=== PATIENT | male | born 1945 | race Caucasian/White ===

== ENCOUNTER → 2020-11-24 08:21 | Outpatient (BNVA) | payer MEDICARE, SELFPAY | PROVIDERS: PCP Internal Medicine; Referring Provider Internal Medicine; Visit Provider Internal Medicine | DX: I71.2 Thoracic aortic aneurysm, without rupture (principal); I25.10 Atherosclerotic heart disease of native coronary artery without angina pectoris; I10 Essential (primary) hypertension; I44.0 Atrioventricular block, first degree | CPT/HCPCS: 93005; 99212 ==

== ENCOUNTER 2021-02-24 10:30 | Outpatient (REF) | payer MEDICARE, SELFPAY ==
[2021-02-24 14:04] LABS: MANUAL DIFF FLAG NO
[2021-02-24 14:11] LABS: Basophils Absolute Auto 0.1 X10*3/uL (0.0-0.2); Basophils Percent Auto 0.6 % (0-2); Eosinophils Absolute Auto 1.1 X10*3/uL (0.0-0.4); Hematocrit 47.8 % (42-52); Hemoglobin 16.6 g/dl (14.0-18.0); Imm Gran Abs Auto 0.02 X10*3/uL (0.00-0.03); Imm Gran Pct Auto 0.2 % (0.0-0.4); Lymphocytes Absolute Auto 3.3 X10*3/uL (1.2-4.9); Lymphocytes Percent Auto 35.1 % (20-40); Mean Corpuscular HGB Conc 34.7 g/dl (31.0-36.0); Mean Corpuscular Hemoglobin 33.3 pg (27.0-33.0); Mean Platelet Volume 9.5 fL (9.4-12.4); Monocytes Absolute Auto 0.7 X10*3/uL (0.1-1.2); Neutrophils Absolute Auto 4.2 X10*3/uL (2.0-8.3); Neutrophils Percent Auto 45.1 % (45-73); Platelet Count 240 X10*3/uL (160-400); Red Blood Count 4.98 X10*6/uL (4.60-5.80); Red Cell Distribution Width 12.6 % (11.0-16.0); White Blood Count 9.4 X10*3/uL (4.8-10.8)
[2021-02-24 14:19] LABS: Glucose Urine UA NEG (NEG); Leukocyte Esterase Urine NEG (NEG); Nitrite Urine NEG (NEG); Urine Blood NEG (NEG); Urine Ketones NEG (NEG); Urine Protein NEG (NEG-TRACE)
[2021-02-24 14:25] LABS: Alanine Aminotransferase 15 U/L (0-40); Albumin Level 4.3 g/dL (3.5-5.0); Alkaline Phosphatase 69 U/L (39-117); Anion Gap 14 (12-20); Aspartate Amino Transferase 21 U/L (5-37); Bilirubin Total 0.7 mg/dL (0.0-1.0); Blood Urea Nitrogen 14 mg/dL (9-16); Calcium 9.3 mg/dL (8.4-10.2); Carbon Dioxide 25 mmol/L (22-29); Chloride 106 mmol/L (96-108); Cholesterol 136 mg/dL; Estimated Glomerular Filt Rate > 60; Glucose Fasting 94 mg/dL (60-99); HDL Cholesterol 48 mg/dL; LDL Cholesterol Calculated 69 mg/dl; Sodium 141 mmol/L (135-145); Total Protein 7.4 g/dL (6.5-8.0); Triglycerides 96 mg/dL; Uric Acid 7.4 mg/dL (3.4-7.0)
[2021-02-24 14:31] LABS: Appearance Urine CLEAR; Color Urine YELLOW
[2021-02-24 14:52] LABS: Erythrocyte Sedimentation Rate 6 MM/HR (0-15)
== END 2021-02-24 10:31 | disposition home or self-care (01) ==
LOC: HO.HMGCLDS 10:30
PROVIDERS: PCP Internal Medicine; Visit Provider Internal Medicine
DX: E78.00 Pure hypercholesterolemia, unspecified (principal); I10 Essential (primary) hypertension; M11.20 Other chondrocalcinosis, unspecified site; K21.9 Gastro-esophageal reflux disease without esophagitis; M17.0 Bilateral primary osteoarthritis of knee; E66.9 Obesity, unspecified
CPT/HCPCS: 36415; 80053; 80061; 81003; 84443; 84550; 85025; 85652

== ENCOUNTER 2021-03-11 09:33 | Emergency (ER) | payer MEDICARE, SELFPAY ==
--- NOTE | 2021-03-11 | ECG_ITS ---
Test Reason : IRREGULAR HEART RATE Blood Pressure : / mmHG Vent. Rate : 069 BPM Atrial Rate : 069 BPM P-R Int : 198 ms QRS Dur : 090 ms QT Int : 418 ms P-R-T Axes : 012 -15 018 degrees QTc Int : 447 ms Sinus rhythm with frequent Premature ventricular complexes in a pattern of bigeminy Inferior infarct (cited on or before 12-NOV-2010) Anteroseptal infarct (cited on or before 12-NOV-2010) Abnormal ECG When compared with ECG of 17-MAR-2015 10:24, Premature ventricular complexes are now Present Questionable change in initial forces of Anteroseptal leads Referred By: Generic ED Physician Electronically Signed By:JUNIOR MANZO
--- NOTE | ~2021-03-11 | CT_ITS ---
EXAMINATION: CT ANGIOGRAM CHEST CLINICAL INFORMATION: Dyspnea. History of aneurysm. COMPARISON: Previous CTA of the chest February 2020 TECHNIQUE: Multiple axial images were obtained through the chest after the administration of 70 mL of Omnipaque 350 intravenous contrast. Extensive vascular post-processing including two-dimensional and three-dimensional reformatted images were created and reviewed on an independent workstation. This CT examination was performed using dose optimization techniques as appropriate, variously including the following: *Automated exposure control *Adjustment of mA and/or kV according to patient size (this includes techniques or standardized protocols for targeted exams where dose is matched to indication/reason for exam; i.e. extremities or head) *Use of iterative reconstruction technique DLP: 357 mGy-cm FINDINGS: There is an aneurysm of the ascending thoracic aorta. This measures 4.8 cm in AP and transverse dimension and does not appear appreciably changed. The aortic arch is normal in caliber measuring 2.7 cm. The descending thoracic aorta is normal in caliber measuring 3 cm. The descending thoracic aorta is tortuous. The great vessels are patent. The great vessels appear tortuous. No dissection is seen. The heart is enlarged. There are post-CABG changes. There is no pericardial effusion. No pulmonary embolism is seen. There are small mediastinal lymph nodes. No enlarged hilar or mediastinal lymph nodes are seen. There is chronic scarring or subsegmental atelectasis in the right lower lobe. The lungs are otherwise clear. There is a right pleural thickening and pleural calcification that is unchanged. There is no pleural effusion. No chest wall mass or enlarged axillary lymph nodes are seen. There are several cysts in the pancreas. These measure 1.3 cm in the body and tail of the pancreas. There is a 3 cm left renal cyst. There are degenerative changes of the spine. CT/CT angio chest aorta IMPRESSION: Stable aneurysm of the ascending thoracic aorta measuring 4.8 cm. No evidence of dissection. No pulmonary embolism. Enlarged heart and post-CABG changes. Chronic pleural thickening and calcified pleural calcification at the right lung base and adjacent right lower lobe atelectasis. Stable cysts in the body and tail of the pancreas.
[2021-03-11 09:47] VITALS: BP 128/61; PULSE 94; RESP 18; TEMP 36.4; O2SAT 99; BMI 32.5
--- NOTE | 2021-03-11 09:56 | ED.ARRPALP ---
HPI - Arrhythmia/Palpitations General Chief Complaint: Arrhythmia/Palpitations Stated Complaint: irregular heartbeat Time Seen by Provider: 03/11/21 09:37 Source: patient Mode of arrival: ambulatory Limitations: no limitations History of Present Illness MD complaint: skipped beats and irregular heart beat Onset (ago): unknown Duration: intermittent Severity: mild Context: occurred during rest Associated symptoms: denies other symptoms Related Data Home Medications Medication Instructions Recorded Confirmed aspirin 81 mg tablet,delayed 81 mg PO DAILY 11/24/20 03/11/21 release multivitamin 1 tab PO DAILY 11/24/20 03/11/21 Previous Rx's Medication Instructions Recorded diclofenac sodium 3 % topical gel 1 appl TOPICAL BID PRN 30 Days 12/07/20 #100 g amlodipine 10 mg tablet 10 mg PO DAILY 90 Days #90 tab 12/31/20 atenolol 50 mg tablet 50 mg PO DAILY 90 Days #90 tab 12/31/20 indomethacin 25 mg capsule 25 mg PO TID #270 cap 12/31/20 lisinopril 30 mg tablet 30 mg PO DAILY 90 Days #90 tab 12/31/20 simvastatin 80 mg tablet 80 mg PO BEDTIME 90 Days #90 tab 12/31/20 albuterol sulfate 90 mcg/actuation 2 puff INHALATION Q6H PRN #8.5 g 03/11/21 aerosol inhaler Allergies Allergy/AdvReac Type Severity Reaction Status Date / Time morphine [MORPHINE] Allergy Unknown UNKNOWN Verified 03/11/21 08:43 Review of Systems Review of Systems: Constitutional : No Weight loss, No Fever, No Chills, No Fatigue, No Malaise ENT/Mouth : No sore throat, No Rhinorrhea Eyes: No Eye Pain, No Swelling, No Redness Cardiovascular : No Chest Pain, No SOB, No Dyspnea on Exertion, No Orthopnea, No Edema, No Palpitations, intermittent wheezing at night Respiratory : No Cough, No Sputum, No Wheezing Gastrointestinal : No Nausea, No Vomiting, No Diarrhea, No Constipation, No abdominal Pain, No Hematochezia, No Melena Genitourinary : No Dysuria, No Urinary Frequency, No Hematuria, Musculoskeletal : No joint pain, No Myalgias, No Joint Swelling Skin : No Skin Lesions, No rash Neuro : No Weakness, No Numbness, No Dizziness, No Headache Psych : No Anxiety/Panic, No Depression Heme/Lymph: No Bruising, No Bleeding,No Lymphadenopathy Endocrine : No Polyuria, No Polydipsia All other systems reviewed and are negative [facility] Past Medical History Attestation statement: The following information was validated with the patient. Medical History Ascending aortic aneurysm Atherosclerotic cardiovascular disease Benign essential hypertension Chronic obstructive pulmonary disease (COPD) Essential hypertension GERD without esophagitis Lumbar degenerative disc disease Obesity (BMI 30-39.9) Primary osteoarthritis of knees, bilateral Pseudogout Pure hypercholesterolemia Surgical History History of coronary artery bypass graft x 3 (~1998) History of laminectomy (~2007) S/P arthroscopy of knee (~2014) Family History Family History (Updated 03/11/21 @ 08:40 by Randi Harris Melissa) Father Myocardial infarction Mother No problems noted. Social History Social History Household Members: Spouse Housing: [facility] Alcohol intake: current Alcohol intake frequency: holidays/special occasions only Patient Tobacco Use Status: Former Tobacco user Quit Date: > 20 years ago e-Cigarette/Vaping Use: Never Used Second Hand Smoke Exposure: No service: Yes ([employer]) Current occupational status: retired Physical Exam Vital Signs: Vital Signs: Last Vital Signs Temp 97.6 F 03/11/21 09:47 Pulse 61 03/11/21 11:56 Resp 20 03/11/21 11:56 BP 122/62 03/11/21 11:56 Pulse Ox 95 03/11/21 11:56 Body Mass Index 32.5 Appearance: Alert. Oriented X3. No acute distress. Eyes: Pupils equal, round and reactive to light. ENT: Pharynx normal. Neck: Normal inspection. Neck supple. CVS: Normal heart rate and rhythm. Pulses normal. HR on tele 72 perfusing at 52 Respiratory: No respiratory distress. Breath sounds normal. Abdomen: Soft and non-tender. Skin: Skin warm and dry. Normal skin color. Normal skin turgor. Extremities: No lower extremity edema. No calf ttp Neuro: Oriented X 3. No motor deficit. No sensory deficit. Course Course Course Narrative: asymptomatic in and out of bigeminy but stable BP and he is perfusing in the 50s, stable aneurysm will ambulate and if he remains stable and PVCs not increased can be DC home if increase with exercise will ECHO and notify cardiology ECHO ordered per Cardiology decrease propanolol if BP stable BP in 120s does not want to wait for ECHO - will decrease atenolol to 25mg daily MDM - Arrhythmia/Palpitations MDM Narrative Medical decision making narrative: 75 yo male with hx of CAD s/p CABG 20 years ago, known thoracic aneurysm actually due for imaging this [place], HLD, HTN went to PCP for routine check up and HR was reportedly in the 30s, he arrived to the ED in [facility] at a rate of 72 and he was perfusing at 52 - normal BP he is on atenolol 50mg daily, he denies any other symptoms related to bradycardia. He has had worsening wheezing at night and is worried about his aneurysm causing this symptom - at this time will need labs, CTA to evaluate size of his aneurysm, anticipate cardiology consult while here. Lab Data Result diagrams: 03/11/21 10:06 03/11/21 10:06 Labs: Lab Results 03/11/21 03/11/21 03/11/21 Range/Units 10:06 10:06 10:06 WBC 8.6 (4.8-10.8) X10*3/uL RBC 5.08 (4.60-5.80) X10*6/uL Hgb 17.2 (14.0-18.0) g/dl Hct 48.5 (42-52) % MCV 95.5 (80-98) fL MCH 33.9 H (27.0-33.0) pg MCHC 35.5 (31.0-36.0) g/dl RDW 12.3 (11.0-16.0) % Plt Count 195 (160-400) X10*3/uL MPV 8.9 L (9.4-12.4) fL Immature Gran % (Auto) 0.2 (0.0-0.4) % Neut % (Auto) 44.8 L (45-73) % Lymph % (Auto) 31.6 (20-40) % Rush % (Auto) 9.3 (2-11) % Eos % (Auto) 13.5 H (0-4) % Baso % (Auto) 0.6 (0-2) % Lymph # (Auto) 2.7 (1.2-4.9) X10*3/uL Rush # (Auto) 0.8 (0.1-1.2) X10*3/uL Eos # (Auto) 1.2 H (0.0-0.4) X10*3/uL Baso # (Auto) 0.1 (0.0-0.2) X10*3/uL Abs Immat Gran (auto) 0.02 (0.00-0.03) X10*3/uL Absolute Neuts (auto) 3.9 (2.0-8.3) X10*3/uL Absolute Nucleated RBC 0.000 (0.0-0.012) X10*3/uL Nucleated RBC % (auto) 0.0 (0.0-0.2) /100WBC PT 11.4 (9.9-13.0) SEC INR 1.0 (0.9-1.1) APTT 34.4 (24.1-38.0) SEC Sodium 138 (135-145) mmol/L Potassium 4.2 (3.3-5.1) mmol/L Chloride 105 (96-108) mmol/L Carbon Dioxide 26 (22-29) mmol/L Anion Gap 11 L (12-20) BUN 17 H (9-16) mg/dL Creatinine 1.46 H (0.5-1.4) mg/dL Estim Creat Clear Calc 51.6 Estimated GFR 47 Random Glucose 110 (60-115) mg/dL Calcium 9.2 (8.4-10.2) mg/dL Magnesium 2.1 (1.6-2.6) mg/dL Total Bilirubin 0.9 (0.0-1.0) mg/dL Direct Bilirubin 0.3 (0.0-0.5) mg/dL AST 21 (5-37) U/L ALT 15 (0-40) U/L Alkaline Phosphatase 72 (39-117) U/L Troponin I High Sens (<3.5-35.0) ng/L B-Natriuretic Peptide (<100) pg/mL Total Protein 7.5 (6.5-8.0) g/dL Albumin 4.3 (3.5-5.0) g/dL TSH 1.52 (0.32-4.0) uIU/mL COVID-19 (MARILIN) (Negative) COVID-19 Clin Com 03/11/21 03/11/21 Range/Units 10:06 10:06 WBC (4.8-10.8) X10*3/uL RBC (4.60-5.80) X10*6/uL Hgb (14.0-18.0) g/dl Hct (42-52) % MCV (80-98) fL MCH (27.0-33.0) pg MCHC (31.0-36.0) g/dl RDW (11.0-16.0) % Plt Count (160-400) X10*3/uL MPV (9.4-12.4) fL Immature Gran % (Auto) (0.0-0.4) % Neut % (Auto) (45-73) % Lymph % (Auto) (20-40) % Rush % (Auto) (2-11) % Eos % (Auto) (0-4) % Baso % (Auto) (0-2) % Lymph # (Auto) (1.2-4.9) X10*3/uL Rush # (Auto) (0.1-1.2) X10*3/uL Eos # (Auto) (0.0-0.4) X10*3/uL Baso # (Auto) (0.0-0.2) X10*3/uL Abs Immat Gran (auto) (0.00-0.03) X10*3/uL Absolute Neuts (auto) (2.0-8.3) X10*3/uL Absolute Nucleated RBC (0.0-0.012) X10*3/uL Nucleated RBC % (auto) (0.0-0.2) /100WBC PT (9.9-13.0) SEC INR (0.9-1.1) APTT (24.1-38.0) SEC Sodium (135-145) mmol/L Potassium (3.3-5.1) mmol/L Chloride (96-108) mmol/L Carbon Dioxide (22-29) mmol/L Anion Gap (12-20) BUN (9-16) mg/dL Creatinine (0.5-1.4) mg/dL Estim Creat Clear Calc Estimated GFR Random Glucose (60-115) mg/dL Calcium (8.4-10.2) mg/dL Magnesium (1.6-2.6) mg/dL Total Bilirubin (0.0-1.0) mg/dL Direct Bilirubin (0.0-0.5) mg/dL AST (5-37) U/L ALT (0-40) U/L Alkaline Phosphatase (39-117) U/L Troponin I High Sens < 3.5 (<3.5-35.0) ng/L B-Natriuretic Peptide 217 H (<100) pg/mL Total Protein (6.5-8.0) g/dL Albumin (3.5-5.0) g/dL TSH (0.32-4.0) uIU/mL COVID-19 (MARILIN) Negative (Negative) COVID-19 Clin Com See Note ECG Data Attestation: I personally reviewed and interpreted this ECG as follows: ECG interpretation date: 03/11/21 ECG interpretation time: 09:57 Interpretation: Rate: 69 Rhythm: NSR with PVCs in bigeminy [place]: left Normal P waves. 1st degree AVB Normal QRS complex. poor R wave progression ST T wave : normal no FUNMI qTC: normal prior studies: changed from prior The study has been interpreted contemporaneously by me. . Discharge Plan Discharge Clinical Impression: Frequent PVCs Patient Disposition: Home, Self-Care Instructions: Premature Ventricular Contractions (ED) Additional Instructions: Stable aneurysm of the ascending thoracic aorta measuring 4.8 cm. No evidence of dissection. No pulmonary embolism. Enlarged heart and post-CABG changes. Chronic pleural thickening and calcified pleural calcification at the right lung base and adjacent right lower lobe atelectasis. Stable cysts in the body and tail of the pancreas. YOU NEED TO CUT YOUR ATENOLOL DOWN TO 25MG DAILY PLEASE CALL YOUR DIE DESIGNER APPRENTICE TOMORROW Prescriptions: No Action simvastatin 80 mg tablet 80 mg PO BEDTIME 90 Days Qty: 90 RF: 3 lisinopril 30 mg tablet 30 mg PO DAILY 90 Days Qty: 90 RF: 3 indomethacin 25 mg capsule 25 mg PO TID Qty: 270 RF: 0 atenolol 50 mg tablet 50 mg PO DAILY 90 Days Qty: 90 RF: 3 amlodipine 10 mg tablet 10 mg PO DAILY 90 Days Qty: 90 RF: 3 diclofenac sodium 3 % gel 1 appl topical BID PRN (Reason: pain) 30 Days Qty: 100 RF: 11 albuterol sulfate 90 mcg/actuation HFA aerosol inhaler 2 puff inhalation Q6H PRN (Reason: shortness of breath or wheezing) Qty: 8.5 RF: 1 aspirin 81 mg tablet,delayed release (DR/EC) 81 mg PO DAILY RF: 0 multivitamin Tablet 1 tab PO DAILY RF: 0
[2021-03-11 10:17] LABS: MANUAL DIFF FLAG NO
[2021-03-11 10:20] LABS: Basophils Absolute Auto 0.1 X10*3/uL (0.0-0.2); Basophils Percent Auto 0.6 % (0-2); Eosinophils Absolute Auto 1.2 X10*3/uL (0.0-0.4); Eosinophils Percent Auto 13.5 % (0-4); Hematocrit 48.5 % (42-52); Hemoglobin 17.2 g/dl (14.0-18.0); Imm Gran Abs Auto 0.02 X10*3/uL (0.00-0.03); Imm Gran Pct Auto 0.2 % (0.0-0.4); Lymphocytes Absolute Auto 2.7 X10*3/uL (1.2-4.9); Lymphocytes Percent Auto 31.6 % (20-40); Mean Corpuscular HGB Conc 35.5 g/dl (31.0-36.0); Mean Corpuscular Hemoglobin 33.9 pg (27.0-33.0); Mean Corpuscular Volume 95.5 fL (80-98); Mean Platelet Volume 8.9 fL (9.4-12.4); Monocytes Absolute Auto 0.8 X10*3/uL (0.1-1.2); Monocytes Percent Auto 9.3 % (2-11); Neutrophils Absolute Auto 3.9 X10*3/uL (2.0-8.3); Neutrophils Percent Auto 44.8 % (45-73); Platelet Count 195 X10*3/uL (160-400); Red Blood Count 5.08 X10*6/uL (4.60-5.80); Red Cell Distribution Width 12.3 % (11.0-16.0); White Blood Count 8.6 X10*3/uL (4.8-10.8)
[2021-03-11 10:25] LABS: Prothrombin Time 11.4 SEC (9.9-13.0)
[2021-03-11 10:28] LABS: Partial Thromboplastin Time 34.4 SEC (24.1-38.0)
--- NOTE | 2021-03-11 10:31 | PC.NURSE ---
Patient sent from PCP for bradycardia. HR 69 on arrival and sustaining in 60s. Patient A+ox4. Labs drawn and sent. IV placed and flushed. Resting safely.
[2021-03-11 10:35] LABS: Alanine Aminotransferase 15 U/L (0-40); Albumin Level 4.3 g/dL (3.5-5.0); Alkaline Phosphatase 72 U/L (39-117); Anion Gap 11 (12-20); Aspartate Amino Transferase 21 U/L (5-37); Bilirubin Direct 0.3 mg/dL (0.0-0.5); Bilirubin Total 0.9 mg/dL (0.0-1.0); Blood Urea Nitrogen 17 mg/dL (9-16); Calcium 9.2 mg/dL (8.4-10.2); Carbon Dioxide 26 mmol/L (22-29); Chloride 105 mmol/L (96-108); Creatinine Clr Calc Pharmacy 51.6; Estimated Glomerular Filt Rate 47; Glucose Random 110 mg/dL (60-115); Magnesium 2.1 mg/dL (1.6-2.6); Potassium 4.2 mmol/L (3.3-5.1); Sodium 138 mmol/L (135-145); Total Protein 7.5 g/dL (6.5-8.0)
[2021-03-11 10:38] LABS: IDNOW Serial# 9DD0AD1C
[2021-03-11 10:39] LABS: B Type Natriuretic Peptide 217 pg/mL (<100); COVID-19 Test Negative (Negative); Troponin-I High Sensitivity < 3.5 ng/L (<3.5-35.0)
[2021-03-11 10:54] LABS: TSH reflex Free T4 1.52 uIU/mL (0.32-4.0)
[2021-03-11] MEDS: iohexoL 350 MG/ML 100 ML INFUS..BTL 75 ML IV (11:04)
[2021-03-11 11:56] VITALS: BP 122/62; PULSE 61; RESP 20; O2SAT 95
== END 2021-03-11 14:16 | disposition home or self-care (01) ==
PROVIDERS: Emergency Provider Emergency Medicine; PCP Internal Medicine
DX: R00.2 Palpitations (principal); I49.3 Ventricular premature depolarization; R06.02 Shortness of breath; Z87.891 Personal history of nicotine dependence; Z79.899 Other long term (current) drug therapy; Z79.82 Long term (current) use of aspirin
CPT/HCPCS: 36415; 71275; 80048; 80076; 83735; 83880; 84443; 84484; 85025; 85610; 85730; 87635; 93005; 99284; 99285; Q9967

== ENCOUNTER → 2021-03-18 07:56 | Outpatient (BNVA) | payer MEDICARE, SELFPAY | PROVIDERS: PCP Internal Medicine; Visit Provider Internal Medicine | DX: I71.2 Thoracic aortic aneurysm, without rupture (principal); I25.10 Atherosclerotic heart disease of native coronary artery without angina pectoris; I10 Essential (primary) hypertension; I44.0 Atrioventricular block, first degree; I25.5 Ischemic cardiomyopathy; I49.3 Ventricular premature depolarization | CPT/HCPCS: 93005; 99212 ==

== ENCOUNTER → 2021-12-30 08:19 | Outpatient (BNVA) | payer MEDICARE, SELFPAY | PROVIDERS: PCP Internal Medicine; Referring Provider Internal Medicine; Visit Provider Internal Medicine | DX: I71.2 Thoracic aortic aneurysm, without rupture (principal); I25.10 Atherosclerotic heart disease of native coronary artery without angina pectoris; I10 Essential (primary) hypertension; I49.3 Ventricular premature depolarization; I25.5 Ischemic cardiomyopathy; I44.0 Atrioventricular block, first degree; Z79.899 Other long term (current) drug therapy; Z95.1 Presence of aortocoronary bypass graft | CPT/HCPCS: 99212 ==

== ENCOUNTER → 2022-01-10 09:10 | Outpatient (BNVA) | payer MEDICARE, SELFPAY | PROVIDERS: PCP Internal Medicine; Visit Provider Internal Medicine Pulmonary Disease | DX: J44.9 Chronic obstructive pulmonary disease, unspecified (principal); R06.2 Wheezing; Z87.891 Personal history of nicotine dependence | CPT/HCPCS: 99202 ==

== ENCOUNTER 2022-02-14 08:58 | Outpatient (REF) | payer MEDICARE, SELFPAY ==
[2022-02-14 11:19] LABS: MANUAL DIFF FLAG NO
[2022-02-14 11:30] LABS: Basophils Absolute Auto 0.1 X10*3/uL (0.0-0.2); Basophils Percent Auto 0.8 % (0-2); Eosinophils Percent Auto 9.8 % (0-4); Hematocrit 46.8 % (42.0-52.0); Hemoglobin 16.4 g/dl (14.0-18.0); Imm Gran Abs Auto 0.03 X10*3/uL (0.00-0.03); Imm Gran Pct Auto 0.3 % (0.0-0.4); Lymphocytes Absolute Auto 3.4 X10*3/uL (1.2-4.9); Lymphocytes Percent Auto 34.5 % (20-40); Mean Corpuscular Hemoglobin 33.5 pg (27.0-33.0); Mean Corpuscular Volume 95.5 fL (80.0-98.0); Mean Platelet Volume 9.8 fL (9.4-12.4); Monocytes Absolute Auto 0.7 X10*3/uL (0.1-1.2); Monocytes Percent Auto 7.3 % (2-11); Neutrophils Absolute Auto 4.7 x10*3/uL (2.0-8.3); Neutrophils Percent Auto 47.3 % (45-73); Platelet Count 216 X10*3/uL (160-400); Red Cell Distribution Width 12.4 % (11.0-16.0); White Blood Count 9.9 X10*3/uL (4.8-10.8)
[2022-02-14 12:09] LABS: Alanine Aminotransferase 12 U/L (0-40); Albumin Level 4.4 g/dL (3.5-5.0); Alkaline Phosphatase 81 U/L (39-117); Anion Gap 14 (12-20); Aspartate Amino Transferase 18 U/L (5-37); Bilirubin Total 0.8 mg/dL (0.0-1.0); Blood Urea Nitrogen 19 mg/dL (9-16); Calcium 9.4 mg/dL (8.4-10.2); Carbon Dioxide 27 mmol/L (22-29); Chloride 104 mmol/L (96-108); Cholesterol 135 mg/dL; Estimated Glomerular Filt Rate 47; Glucose Fasting 111 mg/dL (60-99); HDL Cholesterol 46 mg/dL; LDL Cholesterol Calculated 66 mg/dl; Potassium 4.2 mmol/L (3.3-5.1); Sodium 141 mmol/L (135-145); Total Protein 7.7 g/dL (6.5-8.0); Triglycerides 118 mg/dL
[2022-02-14 12:10] LABS: TSH reflex Free T4 1.79 uIU/mL (0.32-4.0); Vitamin D 25-OH Total 34.6 ng/mL (>30)
== END 2022-02-14 08:59 | disposition home or self-care (01) ==
LOC: HO.HMGCLDS 08:58
PROVIDERS: PCP Internal Medicine; Visit Provider Internal Medicine
DX: I10 Essential (primary) hypertension (principal); E55.9 Vitamin D deficiency, unspecified; E78.00 Pure hypercholesterolemia, unspecified
CPT/HCPCS: 36415; 80053; 80061; 82306; 84443; 85025

== ENCOUNTER 2022-12-15 09:03 | Outpatient (REF) | payer MEDICARE, SELFPAY ==
[2022-12-15 11:16] LABS: MANUAL DIFF FLAG NO
[2022-12-15 11:24] LABS: Estimated Average Glucose 108 mg/dL; Hemoglobin A1c % 5.4 %
[2022-12-15 11:28] LABS: Basophils Absolute Auto 0.1 X10*3/uL (0.0-0.2); Basophils Percent Auto 0.9 % (0-2); Eosinophils Absolute Auto 0.5 X10*3/uL (0.0-0.4); Hematocrit 47.1 % (42.0-52.0); Hemoglobin 16.1 g/dl (14.0-18.0); Imm Gran Abs Auto 0.02 X10*3/uL (0.00-0.03); Imm Gran Pct Auto 0.2 % (0.0-0.4); Lymphocytes Absolute Auto 2.7 X10*3/uL (1.2-4.9); Lymphocytes Percent Auto 29.7 % (20-40); Mean Corpuscular HGB Conc 34.2 g/dl (31.0-36.0); Mean Corpuscular Hemoglobin 32.5 pg (27.0-33.0); Mean Corpuscular Volume 95.2 fL (80.0-98.0); Monocytes Absolute Auto 0.7 X10*3/uL (0.1-1.2); Monocytes Percent Auto 7.3 % (2-11); Neutrophils Absolute Auto 5.1 x10*3/uL (2.0-8.3); Neutrophils Percent Auto 56.9 % (45-73); Platelet Count 242 X10*3/uL (160-400); Red Blood Count 4.95 X10*6/uL (4.60-5.80); Red Cell Distribution Width 13.2 % (11.0-16.0); White Blood Count 8.9 X10*3/uL (4.8-10.8)
[2022-12-15 12:20] LABS: Alanine Aminotransferase 15 U/L (0-40); Albumin Level 4.3 g/dL (3.5-5.0); Alkaline Phosphatase 82 U/L (39-117); Anion Gap 10 (12-20); Aspartate Amino Transferase 23 U/L (5-37); Bilirubin Total 0.9 mg/dL (0.0-1.0); Blood Urea Nitrogen 19 mg/dL (9-16); Calcium 9.4 mg/dL (8.4-10.2); Carbon Dioxide 29 mmol/L (22-29); Chloride 108 mmol/L (96-108); Cholesterol 140 mg/dL; Estimated Glomerular Filt Rate > 60; Glucose Fasting 106 mg/dL (60-99); HDL Cholesterol 50 mg/dL; LDL Cholesterol Calculated 69 mg/dl; Potassium 4.2 mmol/L (3.3-5.1); Sodium 143 mmol/L (135-145); TSH reflex Free T4 2.35 uIU/mL (0.32-4.0); Total Protein 8.1 g/dL (6.5-8.0); Triglycerides 109 mg/dL
[2022-12-15 14:32] LABS: Appearance Urine Clear; Color Urine Yellow; Glucose Urine UA Negative (Negative); Leukocyte Esterase Urine Negative (Negative); Nitrite Urine Negative (Negative); Urine Blood Negative (Negative); Urine Ketones Negative (Negative); Urine Protein Negative (Neg-Trace)
[2022-12-15 16:14] LABS: Creatinine Urine 71.58 mg/dL; Microalbum/Creatinine Ratio Ur 8.3 ug/mg cr
== END 2022-12-15 09:04 | disposition home or self-care (01) ==
LOC: HO.HMGCLDS 09:03
PROVIDERS: PCP Internal Medicine; Visit Provider Internal Medicine
DX: E55.9 Vitamin D deficiency, unspecified (principal); I10 Essential (primary) hypertension; E78.00 Pure hypercholesterolemia, unspecified; E11.9 Type 2 diabetes mellitus without complications
CPT/HCPCS: 36415; 80053; 80061; 81003; 82043; 82306; 83036; 84443; 85025

== ENCOUNTER → 2022-12-29 12:45 | Outpatient (BNVA) | payer MEDICARE, SELFPAY | PROVIDERS: PCP Internal Medicine; Referring Provider Internal Medicine; Visit Provider Internal Medicine | DX: I71.20 Thoracic aortic aneurysm, without rupture, unspecified (principal); I25.10 Atherosclerotic heart disease of native coronary artery without angina pectoris; I10 Essential (primary) hypertension; I44.0 Atrioventricular block, first degree | CPT/HCPCS: 93005; 99212 ==

== ENCOUNTER 2023-01-24 09:57 | Outpatient (AMB) | payer MEDICARE, SELFPAY ==
--- NOTE | 2023-01-24 10:03 | MHC.OFFVIS ---
Intake Vital Signs 01/24/23 10:06 Height 5 ft 9 in Weight 213 lb 13.574 oz BMI 31.6 BP 129/70 Blood Pressure Location Lt brachial Position Sitting Pulse 44 L Intake Visit Reasons: Pancreatic cysts Intake Note: Abdirashid presents in the office for pancreatic cysts. CC: He states that he is not having any symptoms at this time. He states that he is not sure why he was sent here today. 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 Pt currently has no gastrointestinal sx to include abd pain, N,V,D, loss of appetite, change in bowel habits or unintentional weight loss. Gets chest imaging done regularly for ascending thoracic aneurysm which captures pancreatic cysts as well. Pt does not have any hx of pancreatitis. Used to drink moderately but quit in 1998 after his CABG. No fam hx of pancreatic disease. [facility] Medical History Ascending aortic aneurysm Atherosclerotic cardiovascular disease Benign essential hypertension Chronic obstructive pulmonary disease (COPD) Essential hypertension GERD without esophagitis Lumbar degenerative disc disease Obesity (BMI 30-39.9) Primary osteoarthritis of knees, bilateral Pseudogout Pure hypercholesterolemia Surgical History History of coronary artery bypass graft x 3 (~1998) History of esophagogastroduodenoscopy (EGD) History of laminectomy (~2007) Hx of colonoscopy (~02/20/19) S/P arthroscopy of knee (~2014) Family History Father Myocardial infarction Mother No problems noted. Social History Household Members: Spouse Housing: Condominium Alcohol intake: current Alcohol intake frequency: does not drink Patient Tobacco Use Status: Former Tobacco user Quit Date: > 20 years ago e-Cigarette/Vaping Use: Never Used Second Hand Smoke Exposure: No service: Yes ([employer]) Current occupational status: retired Cognitive needs: No Hearing needs: No Vision needs: Yes Review of Systems Const All systems reviewed & are unremarkable except as noted in HPI and below Physical Exam Vital Signs: Last Vital Signs Pulse 44 L 01/24/23 10:06 BP 129/70 01/24/23 10:06 BMI result Body Mass Index 31.6 Gen appear: NAD HEENT: nonicteric, no cervical lymphadenopathy Chest: CTA CVS: Regular S1/S2 Abd: soft, nontender, nondistended, bowel sounds + Ext: no peripheral edema Neuro: A/Ox3, noted to move all extremities spontaneously Psych: interacting appropriately Assessment & Plan Assessment & Plan (1) Pancreatic lesion: Code(s): K86.9 - Disease of pancreas, unspecified Plan Based on review of imaging, seems to have had an increase in size from 1.3 cm in 2020 to 1.8 cm in 2021. Pancreas protocol MRI already ordered by PCP and pending. Depending on progression as well as involvement of PD (if any) may need referral for EUS vs surveillance with interval imaging. Follow up contingent on above. Coding Level of Care Code New Pt Level 4 (51731) Diagnoses Pancreatic lesion K86.9
[2023-01-24 10:06] VITALS: BP 129/70; PULSE 44; BMI 31.6
== END 2023-01-24 10:38 | disposition home or self-care (01) ==
PROVIDERS: PCP Internal Medicine; Visit Provider Internal Medicine
DX: K86.9 Disease of pancreas, unspecified (principal)
CPT/HCPCS: 99204

== ENCOUNTER → 2023-01-24 09:57 | Outpatient (BNVA) | payer MEDICARE, SELFPAY | PROVIDERS: PCP Internal Medicine; Visit Provider Internal Medicine | DX: K86.9 Disease of pancreas, unspecified (principal) | CPT/HCPCS: 99202 ==

== ENCOUNTER 2023-01-26 10:00 | Outpatient (RCR) | payer MEDICARE, SELFPAY ==
--- NOTE | 2022-12-28 15:30 | MHC.PT.EP ---
[facility] [place] Office [place] Office [place] Office [address] [phone] F: [phone] F: [phone] F: [phone] F: [phone] Physical Therapy Plan of Care Date of Evaluation: Date of Surgery: Diagnosis: RTC strain R shoulder pain. Assessment: Pt is a 77 y/o RHD male with Hx of HTN, COPD, Atherosclerotic cardiovascular disease, and lumbar laminectomy is referred to PT for eval and treat of R RTC strain / R shoulder pain which is resulting in decreased tolerance and ability for performing fitness and recreational activities, laying on his R side, as well as reaching his back for hygiene and dressing secondary to decreased R shoulder ROM and strength, increased R scapular tissue tension, decreased thoracic/ scapular posture. Pt is deemed an appropriate candidate to receive skilled PT services to address their physical impairments in order to improve their functional ability. Frequency and Duration: The patient will be seen 2 x/ wk x 4 wks. Short Term Goals: initiate home program Die Caster Goals: I with home program. improve R shoulder IR MMT by at least 1/2 MMT grade; initial: 4-/5 and painful. Symmetrical AROM IR achieved. Improve SPADI questionnaire by at least 13 points. Return to recreation with managed Sx. Treatment Plan: Modalities to reduce pain, spasms and effusion. Manual therapy to restore motion and function. Therapeutic exercise to improve strength and flexibility. Neuromuscular re-education for posture and balance. Therapeutic activities to return to functional activities of daily living. Electronically signed by: Edgar Cisse PT. Please sign and return to therapist. Thank you for your referral.
--- NOTE | 2023-01-26 12:13 | MHC.PT.DC ---
[facility] [place] Office [place] Office [place] Office [address] [phone] F: [phone] F: [phone] F: [phone] F: [phone] Physical Therapy Discharge Report Diagnosis: RTC strain R shoulder pain. Date of Surgery: Date of Evaluation: 12/28/22 Date of Discharge: 01/26/23 Treatments to Date: 9 Cancellations to Date: No Shows to Date: Discharge Status: Achieved Goals Improved Function Independent with HEP Discharge Summary: Pt reports that he feels a lot better. He no longer feels pain with swinging cane like a golf club. IR strength improved to 4+/5 without pain on the right side. Shows improvements in pain and function on SPADI outcome measure which is improved by 16 points from initial eval. Pt has met all goals and has agreed to DC at this time. Electronically signed by: Edgar Cisse PT. Please sign and return to therapist. Thank you for your referral.
== END 2023-01-26 12:14 | disposition home or self-care (01) ==
LOC: HO.PTCHIC 10:00
PROVIDERS: PCP Internal Medicine; Visit Provider Internal Medicine
DX: S46.011D Strain of muscle(s) and tendon(s) of the rotator cuff of right shoulder, subsequent encounter (principal)
CPT/HCPCS: 97110; 97140; 97161

== ENCOUNTER 2023-02-13 08:44 | Outpatient (REF) | payer MEDICARE, SELFPAY ==
--- NOTE | ~2023-02-13 | MR_ITS ---
EXAMINATION: MR ABDOMEN WITHOUT AND WITH CONTRAST CLINICAL INFORMATION: Pancreatic cysts. COMPARISON: None available. TECHNIQUE: MR abdomen was performed without and with use of 10 mL intravenous Gadavist gadolinium contrast. Postcontrast images are performed in multiphase dynamic sequences. Imaging was performed in 3 planes. 3-D MRCP images were obtained. FINDINGS: LUNG BASES: The visualized lung bases are unremarkable. LIVER, GALLBLADDER, AND BILIARY TREE: Signal loss in the opv-[id number] dual echo images suggest the presence of hepatic steatosis. Otherwise, the liver is normal in size and shape. A few subcentimeter T2 bright simple cysts are noted. No biliary ductal dilatation. The gallbladder is unremarkable with no evidence of gallbladder wall thickening, or obvious pericholecystic inflammatory changes. PANCREAS: Multiple T2 bright cystic-appearing lesions. The largest lesions communicate with the main duct, no evidence of main ductal dilatation and no suspicious nodular-like enhancement on postcontrast images; examples as follows: 1. A 2.5 cm multilocular cystic-appearing lesion in the uncinate process (image 29 series 4, coronal MRCP image 27 series 7). 2. A 2.3 cm cystic-appearing lesion in the pancreatic body (image 19 series 4, coronal MRCP image 19 series 7) with a few thin internal septation. 3. A unilocular 1.9 cm cystic-appearing lesion in the pancreatic tail (image 20 series 4, coronal MRCP image 7 series 7). SPLEEN: Normal. ADRENAL GLANDS: Normal. KIDNEYS AND URETERS: A few bilateral T2 bright simple avascular cysts are noted, for which no imaging followup is indicated, for instance a 4 cm left upper pole cyst and a 4.5 cm right lower pole cyst. Symmetric nephrograms. No enhancing renal lesion. No hydronephrosis. No perinephric fat stranding. GASTROINTESTINAL TRACT: No ascites or fluid collection. Focal intermediate T2 bright/intermediate T1 bright fullness in the cecum adjacent to the ileocecal valve, possibly representing stool content (coronal T2 image 27 series 3). ABDOMINAL WALL: No significant hernia is appreciated. LYMPH NODES: No lymphadenopathy. VASCULAR: Normal caliber abdominal aorta. Main portal vein is patent. OSSEOUS STRUCTURES: No acute or aggressive-appearing osseous abnormalities. MR/MR abdomen wo/w con IMPRESSION: 1. Multiple T2 bright cystic-appearing lesions in the pancreas, largest measuring up to 2.5 cm, with communication with the main duct and no suspicious enhancement nor pancreatic ductal dilatation. 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 Per ACR white paper* on the management of incidental pancreatic cysts, for cysts measuring 2.0 to 2.5 cm with main pancreatic duct communication established by imaging for patients less than 80 years of age, recommendations are: Every 6 month follow-up with contrast-enhanced MR or CT pancreas protocol x4; or GI referral for consideration of endoscopic ultrasound and fine-needle aspiration. *Albino AJ, Jalen ME, Jersey DE, Rivka IR, Aj DV, Jam E, Audi WR, Marbin LL, Kristy PV. Management of Incidental Pancreatic Cysts: A White Paper of the ACR Incidental Findings Committee. J Am Irene Radiol. 2017 Aric;14(7):911-923. doi: 10.1016/j.jacr.2017.03.010. Epub 2016November 11. PMID: [id number]. 2. Hepatic steatosis. 3. Focal fullness in the cecum adjacent to the ileocecal valve, likely representing fat and stool. However, out of precaution if the patient is due, correlation with a colonoscopy is recommended to ensure the absence of underlying lesions.
== END 2023-02-13 08:45 | disposition home or self-care (01) ==
LOC: HO.MRI 08:44
PROVIDERS: PCP Internal Medicine; Visit Provider Internal Medicine
DX: K86.2 Cyst of pancreas (principal)
CPT/HCPCS: 74183

== ENCOUNTER 2023-03-01 08:48 | Outpatient (AMB) | payer MEDICARE, SELFPAY ==
[2023-03-01 09:01] VITALS: BP 120/80; PULSE 59; O2SAT 96; BMI 32.8
--- NOTE | 2023-03-01 09:01 | MHC.PC.OV ---
Vital Signs 03/01/23 09:01 Height 5 ft 9 in Weight 222 lb BMI 32.8 BP 120/80 Blood Pressure Location Lt brachial Position Sitting Pulse 59 Pulse Source Pulse Oximeter Pulse Oximetry (%) 96 Oxygen Delivery Method Room Air Intake Visit Reasons: HTN, hyperlipidemia, COPD, OA, pseudogout Producer Assistant Required: No Accompanied by: Self / Same As Patient Allergies morphine [MORPHINE] Allergy (Unknown, Verified 03/15/23 10:04) UNKNOWN Medication List - Last Reconciled 03/01/23 by Donald Monroe MD albuterol sulfate 90 mcg/actuation 2 puffs inhalation Q6H PRN amlodipine 10 mg PO DAILY 90 days aspirin 81 mg PO DAILY diclofenac sodium 3% 1 appl topical BID PRN 30 days indomethacin 25 mg PO TID irbesartan 150 mg PO BEDTIME 90 days multivitamin 1 tab PO DAILY omeprazole 40 mg PO QAM 90 days simvastatin 80 mg PO BEDTIME 90 days Tobacco use date assessed: 03/01/23 Fall risk assessment: No Falls in past year Last assessed Fall Risk: 03/01/23 Dental Screening Dental Screen Date: 03/01/23 Did you have a dental visit in the last 12 months?: Yes Did you have a dental problem in the last 6 months where you did not have access to dental care?: No Was dental information given to patient?: Patient has dentist HPI HTN, hyperlipidemia, COPD, OA, pseudogout HPI Details Patient comes in today for his follow up visit States that his right shoulder is still hurting often and that the physical therapy that he has received so far has not helped much States that he had some x-rays of his shoulder done in [place] earlier this year that reportedly did not show anything unusual in his shoulder States that he would like to try some oral Prednisone again as he recalls experiencing significant relief of his shoulder pain for a while with Prednisone Rx He is heading back to [place] in a few weeks on 03/23/23 and plans to see his orthopedic surgeon down there for further evaluation and management of his shoulder issues He is also currently scheduled to see GI at [facility] this coming Monday for possible EUS-guided Bx of the pancreatic lesions that were seen on recent imaging studies to help r/o malignancy States that he feels okay otherwise He denies any headaches or dizziness; denies any fever or any recent weight loss/change Denies any chest pains, no SOB No nausea/vomiting, no abdominal pain No change in bowel habits noted Needs a few of his Rx refilled Would also like to go over the results of his labs done in November 2022 that he got after his last visit [facility] Medical History Obesity (BMI 30-39.9) GERD without esophagitis Lumbar degenerative disc disease Primary osteoarthritis of knees, bilateral Pseudogout Chronic obstructive pulmonary disease (COPD) Pure hypercholesterolemia Benign essential hypertension Essential hypertension Atherosclerotic cardiovascular disease Ascending aortic aneurysm Surgical History History of esophagogastroduodenoscopy (EGD) Hx of colonoscopy (~02/20/19) History of laminectomy (~2007) S/P arthroscopy of knee (~2014) History of coronary artery bypass graft x 3 (~1998) Family History Father Myocardial infarction Mother No problems noted. Social History Household Members: Spouse Housing: [facility] Alcohol intake: current Alcohol intake frequency: does not drink Patient Tobacco Use Status: Former Tobacco user Quit Date: > 20 years ago e-Cigarette/Vaping Use: Never Used Second Hand Smoke Exposure: No service: Yes ([employer]) Current occupational status: retired Cognitive needs: No Hearing needs: No Vision needs: Yes Questionnaire PHQ-9 Over the last 2 weeks, how often have you been bothered by any of the following problems? 1. Little interest or pleasure in doing things: not at all 2. Feeling down, depressed, or hopeless: not at all 3. Trouble falling or staying asleep, or sleeping too much: not at all 4. Feeling tired or having little energy: not at all 5. Poor appetite or overeating: not at all 6. Feeling bad about yourself - or that you are a failure or have let yourself or your family down: not at all 7. Trouble concentrating on things, such as reading the newspaper or watching television: not at all 8. Moving or speaking so slowly that other people could have noticed. Or the opposite - being so fidgety or restless that you have been moving around a lot more than usual: not at all 9. Thoughts that you would be better off or of hurting yourself in some way: not at all Total score: 0 Depression Screening Interpretation: Negative 56424 - PHQ-9 Billing: Yes Source: Developed by Drs. Oliver Jean, Alfreda Joseph, Pérez Rodas and colleagues, with an educational bar from [employer]. Thrive Questionnaire Date Thrive assessed: 03/01/23 I am a: Patient What is your living situation today?: I have a steady place to live Within the past 12 months, did the food you bought not last and you didn't have the money to get more?: Never true Within the past 12 months, did you worry whether your food would run out before you got money to buy more?: Never true Do you have trouble paying for medicines?: No Do you have trouble getting transportation to medical appointments?: No Do you have trouble paying your heating and electricity bill?: No Do you have trouble taking care of your child, family member or friend?: No Do you have trouble with day-to-day activities such as bathing, preparing meals, shopping, managing finances, etc.?: No Are you currently unemployed and looking for a job?: No Are you interested in more education?: No Please select the resources that you would like help with: None Currently or been in a relationship where the following occur: no concerns reported AUDIT C Alcohol Use Questionnaire (AUDIT-C) 1. How often do you have a drink containing alcohol?: Never 3. How often do you have six or more drinks on one occasion?: Never Total Score: 0 Score Reviewed/Action Taken: Yes CHER-7 AMB Questionnaire CHER-7 Date CHER - 7 assessed: 03/01/23 Feeling nervous, anxious, or on edge: 0 = Not at all Not being able to stop or control worryin = Not at all Worrying too much about different things: 0 = Not at all Trouble relaxin = Not at all Being so restless that it is hard to sit still: 0 = Not at all Becoming easily annoyed or irritable: 0 = Not at all Feeling afraid as if something awful might happen: 0 = Not at all Total CHER-7 score (0-4 normal; 5-9 mild; 10-14 moderate; 15-21 severe): 0 Source: Developed by Drs. Oliver Jean, Alfreda Joseph, Pérez Rodas and colleagues, with an educational bar from [employer]. Review of Systems Const Denies chills, Denies fatigue, Denies fever(s), Denies headache(s) and Denies poor appetite ENT Denies dysphagia, Denies dizziness, Denies otalgia, Denies headache(s), Denies neck pain, Denies odynophagia and Denies sore throat Card Denies chest pain, Denies palpitations and Reports dyspnea on exertion (minimal) Resp Denies chest congestion, Denies cough, Reports dyspnea on exertion (minimal) and Denies wheezing GI Denies abdominal pain, Denies constipation, Denies dysphagia, Denies early satiety, Denies heartburn, Denies diarrhea, Denies nausea, Denies odynophagia and Denies vomiting Denies dysuria, Denies nocturia and Denies urinary frequency Musc Reports arthralgias (right shoulder, on and off) and Denies neck pain Neuro Denies dizziness and Denies headache(s) Endo Denies fatigue and Denies palpitations Aller/Immun Denies wheezing Physical exam (Primary Care) Vital Signs: Last Vital Signs Pulse 59 03/01/23 09:01 BP 120/80 03/01/23 09:01 Pulse Ox 96 03/01/23 09:01 Oxygen Delivery Method Room Air 03/01/23 09:01 BMI result Body Mass Index 32.8 Tobacco/Smoking Status: Tobacco use Status Tobacco use date assessed 03/01/23 03/01/23 09:05 Patient Tobacco Use Status Former Tobacco user 03/01/23 09:05 e-Cigarette/Vaping Use Never Used 03/01/23 09:05 PHQ-9: PHQ-9 Score PHQ-9: Total score 0 03/01/23 10:03 Depression Screening Interpretation: Negative Thrive Assessment: Date of Thrive Assessment Date Thrive assessed 03/01/23 03/01/23 09:05 Currently or been in a relationship where the following occur: no concerns reported Const General: no acute distress and alert HENMT Ears: TM's normal bilaterally and EAC's normal Throat: Yes posterior oropharynx normal and Yes tonsils normal (no TP congestion noted) Neck Neck: Yes no lymphadenopathy and Yes supple Resp Auscultation: clear to auscultation bilaterally, no rales, no wheezes and diminished lung sounds (slightly) bilateral Cardio Rate: regular rate Rhythm: regular rhythm Heart sounds: no murmurs GI Palpation (GI): Soft to palpation and nontender Auscultation: normal bowel sounds Back/Spine/Pelvis Thoracic/Lumbar Spine: lumbar spinal tenderness (mild) Skin Rashes: no rashes Extrem Other: (+) tenderness on palpation over the superior and medial aspect/edge of the right scapula; tenderness is elicited with ROM of the right shoulder as well General: Yes no clubbing, cyanosis or edema Right upper extremity: shoulder/upper arm Details: tenderness Location: of the A-C joint and of the scapula and normal ROM Results Reviewed Results Reviewed: Laboratory Tests 12/15/22 12/15/22 12/15/22 09:14 09:14 09:14 WBC 8.9 Hgb 16.1 Hct 47.1 Plt Count 242 Sodium 143 Potassium 4.2 Creatinine 1.09 Estimated GFR > 60 Fasting Glucose 106 H Hemoglobin A1c % 5.4 Calcium 9.4 AST 23 ALT 15 Triglycerides 109 Cholesterol 140 LDL Cholesterol, Calc 69 HDL Cholesterol 50 25-OH Vitamin D Total 37.0 TSH 2.35 Urine pH Ur Specific [place] Urine Protein Urine Glucose (UA) Urine Blood Microalb/Creat Ratio 12/15/22 12/15/22 11:30 11:30 WBC Hgb Hct Plt Count Sodium Potassium Creatinine Estimated GFR Fasting Glucose Hemoglobin A1c % Calcium AST ALT Triglycerides Cholesterol LDL Cholesterol, Calc HDL Cholesterol 25-OH Vitamin D Total TSH Urine pH 7.0 Ur Specific [place] 1.010 Urine Protein Negative Urine Glucose (UA) Negative Urine Blood Negative Microalb/Creat Ratio 8.3 Assessment and Plan Assessment & Plan (1) Pancreatic lesion: Code(s): K86.9 - Disease of pancreas, unspecified Plan: He has been referred to [facility] GI for EUS and is scheduled to be seen by them in a couple of days this Monday for possible EUS and Bx (2) Pure hypercholesterolemia: Code(s): E78.00 - Pure hypercholesterolemia, unspecified Plan: Results of his labs done back in November 2022 reviewed and discussed with patient Reinforced low cholesterol diet Continue Simvastatin 80 mg QD (3) Benign essential hypertension: Code(s): I10 - Essential (primary) hypertension Plan: Reinforced low sodium diet - goal is systolic BP of at least 130 mm or less, due to his AAA Continue Amlodipine 10 mg QD, Lisinopril 30 mg QD and Atenolol 25 mg QD (4) Atherosclerotic cardiovascular disease: Comment: S/P CABG in 1998 Code(s): I25.10 - Atherosclerotic heart disease of [place] coronary artery without angina pectoris Plan: Asymptomatic Continue Aspirin 81 mg QD (5) Ischemic cardiomyopathy: Code(s): I25.5 - Ischemic cardiomyopathy Plan: Echocardiogram done (in [place] in October 2020 revealed normal LV size; systolic function is mildly to moderately reduced and EF is estimated to be around 40 to 45%, with NO regional wall motion abnormalities noted. There is moderate diffuse hypokinesia and wall thickness is mildly increased. Doppler parameters are reportedly consistent with abnormal LV relaxation (grade 1 diastolic dysfunction) Follow up with cardiology as scheduled (6) Ascending aortic aneurysm: Code(s): I71.2 - Thoracic aortic aneurysm, without rupture Qualifiers: Presence of rupture: without rupture Qualified Code(s): I71.21 - Aneurysm of the ascending aorta, without rupture Plan: Chest CT done in February 2019 revealed an aneurysmal dilatation of the ascending aorta with maximal dimension in the transverse plane of 4.5 cm abd perpendicular to a center line of 4.4 cm (maximal dimension for patient at age 73 should be 4.3 cm) Repeat CTA in August 2020 (done in [place]) revealed (+) fusiform ascending aortic aneurysm measuring 49/47 mm. Aortic arch and descending aorta are unremarkable. No dissection or other pathology. Per prior studies, had 4.6/4.7 cm and 4.5/4.4 cm. Hence that has increased in size He had another follow up CTA done in March 2022 at [facility] - his AAA remains unchanged on this imaging procedure, with evidence of CABG and cardiomegaly and no evidence of PE. 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 and recommended to consider follow up pancreatic MRI with contrast in 6 months Follow up with cardiology as scheduled (7) Chronic obstructive pulmonary disease (COPD): Code(s): J44.9 - Chronic obstructive pulmonary disease, unspecified Qualifiers: COPD type: unspecified COPD Qualified Code(s): J44.9 - Chronic obstructive pulmonary disease, unspecified Plan: PFT done in 2012 revealed mild to moderate degree of restrictive pulmonary disease and moderately severe obstructive airway disease with no reversibility after bronchodilator therapy Patient states that he also had another PFT done at [facility] recently but no report of this is available in his records He developed some sore throat after he was started on Flovent HFA at a previous visit; was switched to Breo Ellipta when he was seen by pulmonary a few months ago but he could not afford the co-pay and went back on Flovent on his own Was not aware that Rx for Symbicort was sent in for him alternatively by pulmonary and is willing to try this instead - Rx for Symbicort 160-4.5 mcg was again sent in at his last visit but he is somehow now on Advair HFA 115-21 mcg 1 inhalation BID and is instructed to just continue on this Continue Albuterol Sulfate HFA Aerosol Solution, 108 (90 Base) MCG/ACT, 1 to 2 puffs, Inhalation, every 6 hrs as needed Follow up with pulmonary as scheduled (8) GERD without esophagitis: Code(s): K21.9 - Gastro-esophageal reflux disease without esophagitis Plan: Dietary restrictions reinforced States that he takes his Omeprazole 20 mg PRN only Follow up with GI as scheduled (9) Impaired fasting glucose: Code(s): R73.01 - Impaired fasting glucose Plan: His FBS was again slightly elevated on his labs done in [place] a few months ago at 104 mg/dl Repeat FBS was at 106 mg/dl but HgbA1c was normal at 5.4% when checked in November 2022 Reinforced low calorie diet/exercise as tolerated (10) Right shoulder pain: Code(s): M25.511 - Pain in right shoulder Qualifiers: Chronicity: acute Qualified Code(s): M25.511 - Pain in right shoulder Plan: Most likely due to rotator cuff strain or scapular dyskinesia He was referred to physical therapy for further evaluation and management, which he states did not help much States that he plans to see his orthopedic surgeon in [place] for this when he heads back down there in a few weeks He is advised that he can take oral Prednisone temporarily to help address his shoulder symptoms when needed but have cautioned him on the risks of frequent or long-term prednisone therapy, including weight gain, edema, elevated blood sugar as well as potential adrenal shut-down if oral steroids are taken too long (11) Pseudogout: Code(s): M11.20 - Other chondrocalcinosis, unspecified site Plan: He follows up with orthopedics down in [place] for this when he is down there in the winter and spring months Continue Indomethacin Capsule, 25MG, 1 capsule with food or milk, Orally, 3 times a day, 90 days, 270 (12) Primary osteoarthritis of knees, bilateral: Code(s): M17.0 - Bilateral primary osteoarthritis of knee Plan: States that he receives cortisone injections in his knees from orthopedics in [place] when needed Follow up with orthopedics as scheduled (13) Lumbar degenerative disc disease: Code(s): M51.36 - Other intervertebral disc degeneration, lumbar region Plan: Reinforced activity and weight lifting restrictions States that he is currently still able to manage his back pain adequately; will consider referring again to pain management when needed (14) Obesity (BMI 30-39.9): Code(s): E66.9 - Obesity, unspecified Plan: Reinforced diet/exercise as tolerated/lose weight Plan Follow up in 2 weeks Medications: Changed From irbesartan 150 mg PO BEDTIME 90 tabs 0RF To irbesartan 150 mg PO BEDTIME 90 tabs 3RF 90 days From omeprazole 40 mg PO QAM To omeprazole 40 mg PO QAM 90 caps 3RF 90 days From albuterol sulfate 90 mcg/actuation 2 puffs inhalation Q6H PRN 8.5 grams 1RF shortness of breath or wheezing To albuterol sulfate 90 mcg/actuation 2 puffs inhalation Q6H PRN 8.5 grams 5RF shortness of breath or wheezing Refilled simvastatin 80 mg PO BEDTIME 90 tabs 3RF 90 days E78.00 - Pure hypercholesterolemia, unspecified amlodipine 10 mg PO DAILY 90 tabs 3RF 90 days I10 - Essential (primary) hypertension Coding Level of Care Code Est Pt Level 4 (47208) Diagnoses Pancreatic lesion K86.9 Pure hypercholesterolemia E78.00 Benign essential hypertension I10 Atherosclerotic cardiovascular disease I25.10 Ischemic cardiomyopathy I25.5 Aneurysm of ascending aorta without rupture I71.21 Presence of rupture: without rupture Chronic obstructive pulmonary disease, unspecified COPD type J44.9 COPD type: unspecified COPD GERD without esophagitis K21.9 Impaired fasting glucose R73.01 Acute pain of right shoulder M25.511 Chronicity: acute Pseudogout M11.20 Primary osteoarthritis of knees, bilateral M17.0 Lumbar degenerative disc disease M51.36 Obesity (BMI 30-39.9) E66.9
== END 2023-03-01 10:06 | disposition home or self-care (01) ==
PROVIDERS: PCP Internal Medicine; Visit Provider Internal Medicine
DX: I10 Essential (primary) hypertension (principal); I71.21 Aneurysm of the ascending aorta, without rupture; J44.9 Chronic obstructive pulmonary disease, unspecified; K21.9 Gastro-esophageal reflux disease without esophagitis; K86.9 Disease of pancreas, unspecified; E78.00 Pure hypercholesterolemia, unspecified; I25.10 Atherosclerotic heart disease of native coronary artery without angina pectoris; I25.5 Ischemic cardiomyopathy; R73.01 Impaired fasting glucose; M25.511 Pain in right shoulder; M11.20 Other chondrocalcinosis, unspecified site; M17.0 Bilateral primary osteoarthritis of knee
CPT/HCPCS: 99214

== ENCOUNTER 2023-03-15 08:24 | Outpatient (AMB) | payer MEDICARE, SELFPAY ==
[2023-03-15 08:26] VITALS: BP 126/82; PULSE 64; O2SAT 96; BMI 32.0
--- NOTE | 2023-03-15 08:26 | MHC.PC.OV ---
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 Required: No Accompanied by: Self / Same As Patient Allergies morphine [MORPHINE] Allergy (Unknown, Verified 03/15/23 10:04) UNKNOWN Medication List - Last Reconciled 03/15/23 by Donald Monroe MD albuterol sulfate 90 mcg/actuation 2 puffs inhalation Q6H PRN amlodipine 10 mg PO DAILY 90 days aspirin 81 mg PO DAILY diclofenac sodium 3% 1 appl topical BID PRN 30 days indomethacin 25 mg PO TID irbesartan 150 mg PO BEDTIME 90 days multivitamin 1 tab PO DAILY omeprazole 40 mg PO QAM 90 days prednisone 20 mg PO DAILY 3 days simvastatin 80 mg PO BEDTIME 90 days Tobacco use date assessed: 03/15/23 Fall risk assessment: No Falls in past year Last assessed Fall Risk: 03/15/23 Dental Screening Dental Screen Date: 03/15/23 Did you have a dental visit in the last 12 months?: Yes Did you have a dental problem in the last 6 months where you did not have access to dental care?: No Was dental information given to patient?: Patient has dentist HPI 2 Wk FOLLOW UP HPI Details Patient comes in today for his follow up visit and to go over the results of his EUS-guided Bx done at [facility] a couple of weeks ago States that he currently feels okay and that his stomach now feels back to normal He is getting ready to head on down to [place] for the winter at the end of the month and would like to get everything ready and is concerned about how his biopsies came out He denies any fever, headaches or dizziness Denies any chest pains, no SOB No nausea/vomiting, no abdominal pain No change in bowel habits noted [facility] Medical History Obesity (BMI 30-39.9) GERD without esophagitis Lumbar degenerative disc disease Primary osteoarthritis of knees, bilateral Pseudogout Chronic obstructive pulmonary disease (COPD) Pure hypercholesterolemia Benign essential hypertension Essential hypertension Atherosclerotic cardiovascular disease Ascending aortic aneurysm Surgical History History of esophagogastroduodenoscopy (EGD) Hx of colonoscopy (~02/20/19) History of laminectomy (~2007) S/P arthroscopy of knee (~2014) History of coronary artery bypass graft x 3 (~1998) Family History Father Myocardial infarction Mother No problems noted. Social History Household Members: Spouse Housing: Condominium Alcohol intake: current Alcohol intake frequency: does not drink Patient Tobacco Use Status: Former Tobacco user Quit Date: > 20 years ago e-Cigarette/Vaping Use: Never Used Second Hand Smoke Exposure: No service: Yes ([employer]) Current occupational status: retired Cognitive needs: No Hearing needs: No Vision needs: Yes Questionnaire PHQ-9 Over the last 2 weeks, how often have you been bothered by any of the following problems? 1. Little interest or pleasure in doing things: not at all 2. Feeling down, depressed, or hopeless: not at all 3. Trouble falling or staying asleep, or sleeping too much: not at all 4. Feeling tired or having little energy: not at all 5. Poor appetite or overeating: not at all 6. Feeling bad about yourself - or that you are a failure or have let yourself or your family down: not at all 7. Trouble concentrating on things, such as reading the newspaper or watching television: not at all 8. Moving or speaking so slowly that other people could have noticed. Or the opposite - being so fidgety or restless that you have been moving around a lot more than usual: not at all 9. Thoughts that you would be better off or of hurting yourself in some way: not at all Total score: 0 Depression Screening Interpretation: Negative 17864 - PHQ-9 Billing: Yes Source: Developed by Drs. Oliver Jean, Alfreda Joseph, Pérez Rodas and colleagues, with an educational bar from [employer]. Thrive Questionnaire Date Thrive assessed: 03/15/23 I am a: Patient What is your living situation today?: I have a steady place to live Within the past 12 months, did the food you bought not last and you didn't have the money to get more?: Never true Within the past 12 months, did you worry whether your food would run out before you got money to buy more?: Never true Do you have trouble paying for medicines?: No Do you have trouble getting transportation to medical appointments?: No Do you have trouble paying your heating and electricity bill?: No Do you have trouble taking care of your child, family member or friend?: No Do you have trouble with day-to-day activities such as bathing, preparing meals, shopping, managing finances, etc.?: No Are you currently unemployed and looking for a job?: No Are you interested in more education?: No Please select the resources that you would like help with: None Currently or been in a relationship where the following occur: no concerns reported AUDIT C Alcohol Use Questionnaire (AUDIT-C) 1. How often do you have a drink containing alcohol?: Never 3. How often do you have six or more drinks on one occasion?: Never Total Score: 0 Score Reviewed/Action Taken: Yes CHER-7 AMB Questionnaire CHER-7 Date CHER - 7 assessed: 03/15/23 Feeling nervous, anxious, or on edge: 0 = Not at all Not being able to stop or control worryin = Not at all Worrying too much about different things: 0 = Not at all Trouble relaxin = Not at all Being so restless that it is hard to sit still: 0 = Not at all Becoming easily annoyed or irritable: 0 = Not at all Feeling afraid as if something awful might happen: 0 = Not at all Total CHER-7 score (0-4 normal; 5-9 mild; 10-14 moderate; 15-21 severe): 0 Source: Developed by Drs. Oliver Jean, Alfreda Joseph, Pérez Rodas and colleagues, with an educational bar from [employer]. Review of Systems Const Denies chills, Denies fatigue, Denies fever(s), Denies headache(s), Denies poor appetite and Denies weight loss ENT Denies dysphagia, Denies dizziness, Denies otalgia, Denies headache(s), Denies neck pain, Denies odynophagia and Denies sore throat Card Denies chest pain, Denies palpitations and Reports dyspnea on exertion (minimal - feels that this has improved a lot with his inhaler) Resp Denies chest congestion, Denies cough, Reports dyspnea on exertion (minimal - feels that this has improved a lot with his inhaler) and Denies wheezing GI Denies abdominal pain, Denies constipation, Denies dysphagia, Denies early satiety, Denies heartburn, Denies diarrhea, Denies nausea, Denies odynophagia and Denies vomiting Denies dysuria, Denies nocturia and Denies urinary frequency Musc Reports arthralgias (right shoulder, on and off, although he feels this has improved lately) and Denies neck pain Neuro Denies dizziness and Denies headache(s) Endo Denies fatigue and Denies palpitations Aller/Immun Denies wheezing Physical exam (Primary Care) Vital Signs: Last Vital Signs Pulse 64 03/15/23 08:26 BP 126/82 03/15/23 08:26 Pulse Ox 96 03/15/23 08:26 Oxygen Delivery Method Room Air 03/15/23 08:26 BMI result Body Mass Index 32.0 Tobacco/Smoking Status: Tobacco use Status Tobacco use date assessed 03/15/23 03/15/23 08:32 Patient Tobacco Use Status Former Tobacco user 03/15/23 08:32 e-Cigarette/Vaping Use Never Used 03/15/23 08:32 PHQ-9: PHQ-9 Score PHQ-9: Total score 0 03/15/23 10:09 Depression Screening Interpretation: Negative Thrive Assessment: Date of Thrive Assessment Date Thrive assessed 03/15/23 03/15/23 08:32 Currently or been in a relationship where the following occur: no concerns reported Const General: no acute distress and alert HENMT Ears: TM's normal bilaterally and EAC's normal Throat: Yes posterior oropharynx normal and Yes tonsils normal (no TP congestion noted) Neck Neck: Yes no lymphadenopathy and Yes supple Resp Auscultation: clear to auscultation bilaterally, no rales, no wheezes and diminished lung sounds (slightly) bilateral Cardio Rate: regular rate Rhythm: regular rhythm Heart sounds: no murmurs GI Palpation (GI): Soft to palpation and nontender Auscultation: normal bowel sounds Back/Spine/Pelvis Thoracic/Lumbar Spine: lumbar spinal tenderness (mild) Skin Rashes: no rashes Extrem Other: (+) tenderness on palpation over the superior and medial aspect/edge of the right scapula; tenderness is elicited with ROM of the right shoulder as well General: Yes no clubbing, cyanosis or edema Assessment and Plan Assessment & Plan (1) Pancreatic lesion: Code(s): K86.9 - Disease of pancreas, unspecified Plan: Patient underwent EUS and Bx of his pancreatic and esophageal lesions a couple of weeks ago - pathology came out BENIGN and was reported as Nelson's mucosa, negative for dysplasia. Squamous mucosa with mild active esophagitis, and GMS and PASD stains for fungal organisms are negative Patient is reassured of his benign findings Is advised that we will try to check and see if there are any other additional reports / pathology results that we have not received and that we will reach out to him about these if there are Follow up with GI as scheduled (2) Benign essential hypertension: Code(s): I10 - Essential (primary) hypertension Plan: Reinforced low sodium diet - goal is systolic BP of at least 130 mm or less, due to his AAA Continue Amlodipine 10 mg QD, Lisinopril 30 mg QD and Atenolol 25 mg QD (3) Pure hypercholesterolemia: Code(s): E78.00 - Pure hypercholesterolemia, unspecified Plan: Reinforced low cholesterol diet Continue Simvastatin 80 mg QD Will have patient recheck his labs and fasting lipids in November 2023 when he returns from his winter sojourn in [place] (4) Atherosclerotic cardiovascular disease: Comment: S/P CABG in 1998 Code(s): I25.10 - Atherosclerotic heart disease of ione coronary artery without angina pectoris Plan: Asymptomatic Continue Aspirin 81 mg QD (5) Ischemic cardiomyopathy: Code(s): I25.5 - Ischemic cardiomyopathy Plan: Echocardiogram done (in [place] in October 2020 revealed normal LV size; systolic function is mildly to moderately reduced and EF is estimated to be around 40 to 45%, with NO regional wall motion abnormalities noted. There is moderate diffuse hypokinesia and wall thickness is mildly increased. Doppler parameters are reportedly consistent with abnormal LV relaxation (grade 1 diastolic dysfunction) Follow up with cardiology as scheduled (6) Ascending aortic aneurysm: Code(s): I71.2 - Thoracic aortic aneurysm, without rupture Qualifiers: Presence of rupture: without rupture Qualified Code(s): I71.21 - Aneurysm of the ascending aorta, without rupture Plan: Chest CT done in February 2019 revealed an aneurysmal dilatation of the ascending aorta with maximal dimension in the transverse plane of 4.5 cm abd perpendicular to a center line of 4.4 cm (maximal dimension for patient at age 73 should be 4.3 cm) Repeat CTA in August 2020 (done in [place]) revealed (+) fusiform ascending aortic aneurysm measuring 49/47 mm. Aortic arch and descending aorta are unremarkable. No dissection or other pathology. Per prior studies, had 4.6/4.7 cm and 4.5/4.4 cm. Hence that has increased in size He had another follow up CTA done in March 2022 at [facility] - his AAA remains unchanged on this imaging procedure, with evidence of CABG and cardiomegaly and no evidence of PE. 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 and recommended to consider follow up pancreatic MRI with contrast in 6 months Follow up with cardiology as scheduled (7) Chronic obstructive pulmonary disease (COPD): Code(s): J44.9 - Chronic obstructive pulmonary disease, unspecified Qualifiers: COPD type: unspecified COPD Qualified Code(s): J44.9 - Chronic obstructive pulmonary disease, unspecified Plan: PFT done in 2012 revealed mild to moderate degree of restrictive pulmonary disease and moderately severe obstructive airway disease with no reversibility after bronchodilator therapy Patient states that he also had another [place] [facility] but no report of this is available in his records He developed some sore throat after he was started on Flovent HFA at a previous visit; was switched to Breo Ellipta when he was seen by pulmonary a few months ago but he could not afford the co-pay and went back on Flovent on his own Was not aware that Rx for Symbicort was sent in for him alternatively by pulmonary and is willing to try this instead - Rx for Symbicort 160-4.5 mcg was again sent in at his last visit but he is somehow now on Advair HFA 115-21 mcg 1 inhalation BID and is instructed to just continue on this Continue Albuterol Sulfate HFA Aerosol Solution, 108 (90 Base) MCG/ACT, 1 to 2 puffs, Inhalation, every 6 hrs as needed Follow up with pulmonary as scheduled (8) GERD without esophagitis: Code(s): K21.9 - Gastro-esophageal reflux disease without esophagitis Plan: Dietary restrictions reinforced Has been taking his Omeprazole 20 mg QD PRN only but now in light of his Nelson's esophagitis on his recent Bx, have advised patient to start taking Omeprazole 40 mg QD everyday Follow up with GI as scheduled (9) Impaired fasting glucose: Code(s): R73.01 - Impaired fasting glucose Plan: His FBS was again slightly elevated on his labs done in [place] a few months ago at 104 mg/dl Repeat FBS was at 106 mg/dl but HgbA1c was normal at 5.4% when checked in November 2022 Reinforced low calorie diet/exercise as tolerated (10) Right shoulder pain: Code(s): M25.511 - Pain in right shoulder Qualifiers: Chronicity: acute Qualified Code(s): M25.511 - Pain in right shoulder Plan: Most likely due to rotator cuff strain or scapular dyskinesia He was referred to physical therapy for further evaluation and management - states that symptoms have improved significantly with PT (11) Pseudogout: Code(s): M11.20 - Other chondrocalcinosis, unspecified site Plan: He follows up with orthopedics down in [place] for this when he is down there in the winter and spring months Continue Indomethacin Capsule, 25MG, 1 capsule with food or milk, Orally, 3 times a day, 90 days, 270 (12) Primary osteoarthritis of knees, bilateral: Code(s): M17.0 - Bilateral primary osteoarthritis of knee Plan: States that he receives cortisone injections in his knees from orthopedics in [place] when needed Follow up with orthopedics as scheduled (13) Lumbar degenerative disc disease: Code(s): M51.36 - Other intervertebral disc degeneration, lumbar region Plan: Reinforced activity and weight lifting restrictions States that he is currently still able to manage his back pain adequately; will consider referring again to pain management when needed (14) Obesity (BMI 30-39.9): Code(s): E66.9 - Obesity, unspecified Plan: Reinforced diet/exercise as tolerated/lose weight Plan Follow up in November 2023 when patient returns from [place] Orders: Orders Comprehensive [place]. Panel Fast 11/25/23 E78.00 - Pure hypercholesterolemia, unspecified UA CC w/rflx Micro + Cult 11/25/23 R30.0 - Dysuria Hemoglobin A1c 11/25/23 R73.01 - Impaired fasting glucose Lipid Panel 11/25/23 E78.00 - Pure hypercholesterolemia, unspecified Complete Blood Count Auto Diff 11/25/23 I10 - Essential (primary) hypertension TSH reflex Free T4 11/25/23 E78.00 - Pure hypercholesterolemia, unspecified Vitamin D 25-OH Total 11/25/23 E55.9 - Vitamin D deficiency, unspecified Coding Level of Care Code Est Pt Level 4 (11758) Diagnoses Pancreatic lesion K86.9 Benign essential hypertension I10 Pure hypercholesterolemia E78.00 Atherosclerotic cardiovascular disease I25.10 Ischemic cardiomyopathy I25.5 Aneurysm of ascending aorta without rupture I71.21 Presence of rupture: without rupture Chronic obstructive pulmonary disease, unspecified COPD type J44.9 COPD type: unspecified COPD GERD without esophagitis K21.9 Impaired fasting glucose R73.01 Acute pain of right shoulder M25.511 Chronicity: acute Pseudogout M11.20 Primary osteoarthritis of knees, bilateral M17.0 Lumbar degenerative disc disease M51.36 Obesity (BMI 30-39.9) E66.9
== END 2023-03-15 09:30 | disposition home or self-care (01) ==
PROVIDERS: PCP Internal Medicine; Visit Provider Internal Medicine
DX: I10 Essential (primary) hypertension (principal); I71.21 Aneurysm of the ascending aorta, without rupture; J44.9 Chronic obstructive pulmonary disease, unspecified; K21.9 Gastro-esophageal reflux disease without esophagitis; K86.9 Disease of pancreas, unspecified; E78.00 Pure hypercholesterolemia, unspecified; I25.10 Atherosclerotic heart disease of native coronary artery without angina pectoris; I25.5 Ischemic cardiomyopathy; R73.01 Impaired fasting glucose; M25.511 Pain in right shoulder; M11.20 Other chondrocalcinosis, unspecified site
CPT/HCPCS: 99214

== ENCOUNTER 2023-12-04 09:08 | Outpatient (REF) | payer MEDICARE, SELFPAY ==
[2023-12-04 10:15] LABS: MANUAL DIFF FLAG NO
[2023-12-04 10:29] LABS: Basophils Absolute Auto 0.1 X10*3/uL (0.0-0.2); Basophils Percent Auto 0.7 % (0-2); Eosinophils Absolute Auto 0.4 X10*3/uL (0.0-0.4); Eosinophils Percent Auto 3.9 % (0-4); Hematocrit 45.3 % (42.0-52.0); Hemoglobin 15.7 g/dl (14.0-18.0); Imm Gran Abs Auto 0.08 X10*3/uL (0.00-0.03); Imm Gran Pct Auto 0.8 % (0.0-0.4); Lymphocytes Absolute Auto 2.4 X10*3/uL (1.2-4.9); Lymphocytes Percent Auto 23.8 % (20-40); Mean Corpuscular HGB Conc 34.7 g/dl (31.0-36.0); Mean Corpuscular Hemoglobin 33.5 pg (27.0-33.0); Mean Corpuscular Volume 96.8 fL (80.0-98.0); Monocytes Absolute Auto 0.5 X10*3/uL (0.1-1.2); Monocytes Percent Auto 5.4 % (2-11); Neutrophils Absolute Auto 6.5 x10*3/uL (2.0-8.3); Neutrophils Percent Auto 65.4 % (45-73); Platelet Count 224 X10*3/uL (160-400); Red Blood Count 4.68 X10*6/uL (4.60-5.80); Red Cell Distribution Width 12.8 % (11.0-16.0); White Blood Count 9.9 X10*3/uL (4.8-10.8)
[2023-12-04 10:31] LABS: Appearance Urine Clear; Color Urine Yellow; Glucose Urine UA Negative (Negative); Leukocyte Esterase Urine Negative (Negative); Nitrite Urine Negative (Negative); PH 5.5 (5.0-9.0); Urine Blood Negative (Negative); Urine Ketones Negative (Negative); Urine Protein Negative (Neg-Trace)
[2023-12-04 10:44] LABS: Estimated Average Glucose 111 mg/dL; Hemoglobin A1C 149.2536 umol/L; Hemoglobin A1c % 5.5 % (<6.0)
[2023-12-04 11:06] LABS: Alanine Aminotransferase 15 U/L (0-40); Albumin Level 4.4 g/dL (3.5-5.0); Alkaline Phosphatase 78 U/L (39-117); Anion Gap 10 (12-20); Aspartate Amino Transferase 22 U/L (5-37); Bilirubin Total 0.8 mg/dL (0.0-1.0); Blood Urea Nitrogen 17 mg/dL (9-16); Calcium 9.7 mg/dL (8.4-10.2); Carbon Dioxide 29 mmol/L (22-29); Chloride 106 mmol/L (96-108); Cholesterol 132 mg/dL (<200); Estimated Glomerular Filt Rate > 60; Glucose Fasting 98 mg/dL (60-99); HDL Cholesterol 50 mg/dL (>40); LDL Cholesterol Calculated 63 mg/dL (<100); Potassium 3.7 mmol/L (3.3-5.1); Sodium 141 mmol/L (135-145); Triglycerides 99 mg/dL (<150)
[2023-12-04 11:22] LABS: TSH reflex Free T4 1.11 uIU/mL (0.32-4.0)
== END 2023-12-04 09:09 | disposition home or self-care (01) ==
LOC: HO.HMGCLDS 09:08
PROVIDERS: PCP Internal Medicine; Visit Provider Internal Medicine
DX: E78.00 Pure hypercholesterolemia, unspecified (principal); I10 Essential (primary) hypertension; R30.0 Dysuria; R73.01 Impaired fasting glucose; E55.9 Vitamin D deficiency, unspecified
CPT/HCPCS: 36415; 80053; 80061; 81003; 82306; 83036; 84443; 85025

== ENCOUNTER 2023-12-11 08:15 | Outpatient (AMB) | payer MEDICARE, SELFPAY ==
--- NOTE | 2023-12-11 08:46 | MHC.PC.OV ---
Vital Signs 12/11/23 08:50 12/11/23 10:03 Height 5 ft 9 in Weight 214 lb 2 oz BMI 31.6 BP 144/60 H 120/86 Blood Pressure Location Lt brachial Lt brachial Position Sitting Sitting Pulse 49 L Pulse Source Pulse Oximeter Pulse Oximetry (%) 97 Oxygen Delivery Method Room Air Intake Visit Reasons: cardiomyopathy, Nelson's, HTN, hyperlipidemia Intake Note: Patient is here to follow up on Cardiomyopathy, Nelson's, HTN, HLD. Help Desk Operator Required: No District Court Justice: Not Required per policy Accompanied by: Self / Same As Patient Allergies morphine [MORPHINE] Allergy (Unknown, Verified 12/11/23 08:50) UNKNOWN Tobacco use date assessed: 12/11/23 Fall risk assessment: No Falls in past year Last assessed Fall Risk: 12/11/23 Dental Screening Dental Screen Date: 12/11/23 Did you have a dental visit in the last 12 months?: Yes Did you have a dental problem in the last 6 months where you did not have access to dental care?: No Was dental information given to patient?: Patient has dentist HPI cardiomyopathy, Nelson's, HTN, hyperlipidemia HPI Details Patient comes in today for his follow up visit States that he has been experiencing increased pain over both of his SI joint lately Relates that he was getting injections in [place] when needed over the past several years with relief but his pain doctor in [place] retired recently and he has not been able to get any injections for about 3 years now He also had a repeat chest CT done in [place] last month (October 2023) for follow up of his aortic dilatation and was reportedly advised by his heel shaver to see pulmonary as well for follow up of the pleural thickening and nodular pulmonary density that are seen on his imaging studies although these appear stable on his recent scan He denies any headaches or dizziness Denies any chest pains, no increased SOB No nausea/vomiting, no abdominal pain No change in bowel habits noted He had his follow up labs done last week - to discuss his results [facility] Medical History Obesity (BMI 30-39.9) GERD without esophagitis Lumbar degenerative disc disease Primary osteoarthritis of knees, bilateral Pseudogout Chronic obstructive pulmonary disease (COPD) Pure hypercholesterolemia Benign essential hypertension Essential hypertension Atherosclerotic cardiovascular disease Ascending aortic aneurysm Surgical History History of esophagogastroduodenoscopy (EGD) Hx of colonoscopy (~02/20/19) History of laminectomy (~2007) S/P arthroscopy of knee (~2014) History of coronary artery bypass graft x 3 (~1998) Family History Father Myocardial infarction Mother No problems noted. Social History Household Members: Spouse Housing: Condominium Alcohol intake: current Alcohol intake frequency: does not drink Patient Tobacco Use Status: Former Tobacco user e-Cigarette/Vaping Use: Never Used Second Hand Smoke Exposure: No service: Yes ([employer]) Current occupational status: retired Cognitive needs: No Hearing needs: No Vision needs: Yes Questionnaire PHQ-9 Over the last 2 weeks, how often have you been bothered by any of the following problems? 1. Little interest or pleasure in doing things: not at all 2. Feeling down, depressed, or hopeless: not at all 3. Trouble falling or staying asleep, or sleeping too much: not at all 4. Feeling tired or having little energy: not at all 5. Poor appetite or overeating: not at all 6. Feeling bad about yourself - or that you are a failure or have let yourself or your family down: not at all 7. Trouble concentrating on things, such as reading the newspaper or watching television: not at all 8. Moving or speaking so slowly that other people could have noticed. Or the opposite - being so fidgety or restless that you have been moving around a lot more than usual: not at all 9. Thoughts that you would be better off or of hurting yourself in some way: not at all Total score: 0 Depression Screening Interpretation: Negative Depression Screening Done: Yes [id number] - PHQ-9 Billing: Yes Source: Developed by Drs. Oliver Jean, Alfreda Joseph, Pérez Rodas and colleagues, with an educational bar from [employer]. Thrive Questionnaire Date Thrive assessed: 12/11/23 I am a: Patient What is your living situation today?: I have a steady place to live Within the past 12 months, did the food you bought not last and you didn't have the money to get more?: Never true Within the past 12 months, did you worry whether your food would run out before you got money to buy more?: Never true Do you have trouble paying for medicines?: No Do you have trouble getting transportation to medical appointments?: No Do you have trouble paying your heating and electricity bill?: No Do you have trouble taking care of your child, family member or friend?: No Do you have trouble with day-to-day activities such as bathing, preparing meals, shopping, managing finances, etc.?: No Are you currently unemployed and looking for a job?: No Are you interested in more education?: No Currently or been in a relationship where the following occur: no concerns reported THRIVE Score: 0 AUDIT C Alcohol Use Questionnaire (AUDIT-C) 1. How often do you have a drink containing alcohol?: Never 3. How often do you have six or more drinks on one occasion?: Never Total Score: 0 Score Reviewed/Action Taken: Yes CHER-7 AMB Questionnaire CHER-7 Date CHER - 7 assessed: 12/11/23 Feeling nervous, anxious, or on edge: 0 = Not at all Not being able to stop or control worryin = Not at all Worrying too much about different things: 0 = Not at all Trouble relaxin = Not at all Being so restless that it is hard to sit still: 0 = Not at all Becoming easily annoyed or irritable: 0 = Not at all Feeling afraid as if something awful might happen: 0 = Not at all Total CHER-7 score (0-4 normal; 5-9 mild; 10-14 moderate; 15-21 severe): 0 Source: Developed by Drs. Oliver Jean, Alfreda Joseph, Pérez Rodas and colleagues, with an educational abr from [employer]. Review of Systems Const Denies chills, Denies fatigue, Denies fever(s) and Denies headache(s) ENT Denies dysphagia, Denies dizziness, Denies otalgia, Denies headache(s), Denies neck pain, Denies odynophagia and Denies sore throat Card Denies chest pain, Denies palpitations and Reports dyspnea on exertion (minimal - improved with his Rx/inhaler) Resp Denies chest congestion, Denies cough, Reports dyspnea on exertion (minimal - improved with his Rx/inhaler) and Denies wheezing GI Denies abdominal pain, Denies constipation, Denies dysphagia, Denies early satiety, Denies heartburn, Denies diarrhea, Denies nausea, Denies odynophagia and Denies vomiting Denies dysuria, Denies nocturia and Denies urinary frequency Musc Denies back pain, Reports arthralgias (right shoulder, on and off, although he feels this has improved lately) and Denies neck pain Skin/Breast Denies rash Neuro Denies dizziness and Denies headache(s) Endo Denies fatigue and Denies palpitations Aller/Immun Denies wheezing Physical exam (Primary Care) Vital Signs: Last Vital Signs Pulse 49 L 12/11/23 08:50 BP 144/60 H 12/11/23 08:50 Pulse Ox 97 12/11/23 08:50 Oxygen Delivery Method Room Air 12/11/23 08:50 BMI result Body Mass Index 31.6 Tobacco/Smoking Status: Tobacco use Status Tobacco use date assessed 12/11/23 12/11/23 08:58 Patient Tobacco Use Status Former Tobacco user 12/11/23 08:58 e-Cigarette/Vaping Use Never Used 12/11/23 08:58 PHQ-9: PHQ-9 Score PHQ-9: Total score 0 12/11/23 08:58 Depression Screening Interpretation: Negative Thrive Assessment: Date of Thrive Assessment Date Thrive assessed 12/11/23 12/11/23 08:58 Currently or been in a relationship where the following occur: no concerns reported Const General: no acute distress and alert HENMT Ears: TM's normal bilaterally and EAC's normal Throat: Yes posterior oropharynx normal and Yes tonsils normal (no TP congestion noted) Neck Neck: Yes no lymphadenopathy and Yes supple Thyroid: Thyroid normal Resp Auscultation: clear to auscultation bilaterally, no rales, no wheezes and diminished lung sounds (slightly) bilateral Cardio Rate: regular rate Rhythm: regular rhythm Heart sounds: no murmurs GI Palpation (GI): Soft to palpation and nontender Auscultation: normal bowel sounds General: Yes no CVA tenderness Back/Spine/Pelvis Back: no CVA tenderness Thoracic/Lumbar Spine: lumbar spinal tenderness (mild) Sacroiliac joints: bilaterally tender to palpation Skin Rashes: no rashes Extrem General: Yes no clubbing, cyanosis or edema Results Reviewed Results Reviewed: Laboratory Tests 12/15/22 12/04/23 12/04/23 11:30 09:12 09:20 WBC 9.9 Hgb 15.7 Hct 45.3 Plt Count 224 Sodium 141 Potassium 3.7 Creatinine 1.10 Estimated GFR > 60 Fasting Glucose 98 Hemoglobin A1c % 5.5 Calcium 9.7 AST 22 ALT 15 Triglycerides 99 Cholesterol 132 LDL Cholesterol, Calc 63 HDL Cholesterol 50 25-OH Vitamin D Total 42.0 TSH 1.11 Ur Specific [place] 1.020 Urine Protein Negative Urine Glucose (UA) Negative Urine Blood Negative Urine Nitrite Negative Ur Leukocyte Esterase Negative Microalb/Creat Ratio 8.3 Assessment and Plan Assessment & Plan (1) Pure hypercholesterolemia: Code(s): E78.00 - Pure hypercholesterolemia, unspecified Plan: Results of his labs done last week reviewed and discussed with patient Reinforced low cholesterol diet Continue Simvastatin 80 mg QD Will have patient recheck his labs and fasting lipids in 3 months for follow up - states that he will be headed back down to [place] for the rest of the year through next winter in early March 2024 (2) Benign essential hypertension: Code(s): I10 - Essential (primary) hypertension Plan: Reinforced low sodium diet - goal is systolic BP of at least 130 mm or less, due to his AAA Continue Amlodipine 10 mg QD, Lisinopril 30 mg QD and Atenolol 25 mg QD (3) Atherosclerotic cardiovascular disease: Comment: S/P CABG in 1998 Code(s): I25.10 - Atherosclerotic heart disease of [place] coronary artery without angina pectoris Plan: He is asymptomatic from a cardiac standpoint Continue Aspirin 81 mg QD (4) Ischemic cardiomyopathy: Code(s): I25.5 - Ischemic cardiomyopathy Plan: Echocardiogram done (in [place] in October 2020 revealed normal LV size; systolic function is mildly to moderately reduced and EF is estimated to be around 40 to 45%, with NO regional wall motion abnormalities noted. There is moderate diffuse hypokinesia and wall thickness is mildly increased. Doppler parameters are reportedly consistent with abnormal LV relaxation (grade 1 diastolic dysfunction) Follow up with cardiology as scheduled (5) Ascending aortic aneurysm: Code(s): I71.2 - Thoracic aortic aneurysm, without rupture Qualifiers: Presence of rupture: without rupture Qualified Code(s): I71.21 - Aneurysm of the ascending aorta, without rupture Plan: Chest CT done in February 2019 revealed an aneurysmal dilatation of the ascending aorta with maximal dimension in the transverse plane of 4.5 cm abd perpendicular to a center line of 4.4 cm (maximal dimension for patient at age 73 should be 4.3 cm) Repeat CTA in August 2020 (done in [place]) revealed (+) fusiform ascending aortic aneurysm measuring 49/47 mm. Aortic arch and descending aorta are unremarkable. No dissection or other pathology. Per prior studies, had 4.6/4.7 cm and 4.5/4.4 cm. Hence that has increased in size He had another follow up CTA done in March 2022 at [facility] - his AAA remains unchanged on this imaging procedure, with evidence of CABG and cardiomegaly and no evidence of PE. 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 and recommended to consider follow up pancreatic MRI with contrast in 6 months He most recently had a follow up chest CT done in [place] on 11/16/2023, which shows a stable thoracic aortic aneurysmal dilatation measuring 4.6 x 4.7 cm with no evidence of dissection Follow up with cardiology as scheduled (6) Chronic obstructive pulmonary disease (COPD): Code(s): J44.9 - Chronic obstructive pulmonary disease, unspecified Qualifiers: COPD type: unspecified COPD Qualified Code(s): J44.9 - Chronic obstructive pulmonary disease, unspecified Plan: PFT done in 2012 revealed mild to moderate degree of restrictive pulmonary disease and moderately severe obstructive airway disease with no reversibility after bronchodilator therapy Patient states that he also had another PFT done at [facility] recently but no report of this is available in his records He developed some sore throat after he was started on Flovent HFA at a previous visit; was switched to Breo Ellipta when he was seen by pulmonary a few months ago but he could not afford the co-pay and went back on Flovent on his own He was not aware that Rx for Symbicort was sent in for him alternatively by pulmonary then and was willing to try this instead - Rx for Symbicort 160-4.5 mcg was again sent in at his last visit but he somehow ended up on Advair HFA 115-21 mcg 1 inhalation BID Continue Advair HFA 115-21 mcg 1 inhalation BID and Albuterol Sulfate HFA Aerosol Solution, 108 (90 Base) MCG/ACT, 1 to 2 puffs, Inhalation, every 6 hrs as needed His chest CT in March 2023 also revealed the presence of a 2.5 x 1.2 cm nodular airspace density in the posterior aspect of the right lung base that is mostly unchanged from prior study He also had a chronic right pleural thickening with some calcifications that are also stable but he has been advised by his heel shaver that he should see pulmonary and for them to help him follow up on these regularly - pulmonary referral done (7) Pancreatic lesion: Code(s): K86.9 - Disease of pancreas, unspecified Plan: Patient underwent EUS and Bx of his pancreatic and esophageal lesions last year (2022) - pathology came out BENIGN and 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 Squamous mucosa with mild active esophagitis, and GMS and PASD stains for fungal organisms are negative Patient was reassured of his benign findings Follow up with GI as scheduled (8) GERD without esophagitis: Code(s): K21.9 - Gastro-esophageal reflux disease without esophagitis Plan: Dietary restrictions reinforced Continue Omeprazole 40 mg QD in light of his Nelson's esophagitis on his recent Bx Follow up with GI as scheduled (9) Impaired fasting glucose: Code(s): R73.01 - Impaired fasting glucose Plan: His FBS was normal at 98 mg/dl on his labs done last week; HgbA1c also remained normal at 5.5% Reinforced low calorie diet/exercise as tolerated (10) Pseudogout: Code(s): M11.20 - Other chondrocalcinosis, unspecified site Plan: He follows up with orthopedics down in [place] for this when he is down there in the winter and spring months Continue Indomethacin Capsule, 25MG, 1 capsule with food or milk, Orally, 3 times a day, 90 days, 270 (11) Primary osteoarthritis of knees, bilateral: Code(s): M17.0 - Bilateral primary osteoarthritis of knee Plan: States that he receives cortisone injections in his knees from orthopedics in [place] when needed Follow up with orthopedics as scheduled (12) Bilateral sacroiliitis: Code(s): M46.1 - Sacroiliitis, not elsewhere classified Plan: Will send him for x-rays of the sacroiliac joints bilaterally for further evaluation He recalls going for back injections bilaterally with his airbrush painter in [place] when needed for years with (+) relief but his pain specialist retired a few years ago and he has not been able to get any injections in the past 3 years and states that his lower back has been bothering him more often lately Will refer him to [facility] for consideration for SI joint injections (13) Obesity (BMI 30-39.9): Code(s): E66.9 - Obesity, unspecified Plan: Reinforced diet/exercise as tolerated/lose weight Plan Follow up in 3 months Orders: Orders Complete Blood Count Auto Diff 3 Months D64.9 - Anemia, unspecified TSH reflex Free T4 3 Months E78.00 - Pure hypercholesterolemia, unspecified UA CC w/rflx Micro + Cult 3 Months R30.0 - Dysuria Vitamin D 25-OH Total 3 Months E55.9 - Vitamin D deficiency, unspecified Uric Acid 3 Months M11.20 - Other chondrocalcinosis, unspecified site XR sacroiliac joint min 3V Today M46.1 - Sacroiliitis, not elsewhere classified Hemoglobin A1c 3 Months R73.01 - Impaired fasting glucose Comprehensive [place]. Panel Fast 3 Months E78.00 - Pure hypercholesterolemia, unspecified Lipid Panel 3 Months E78.00 - Pure hypercholesterolemia, unspecified Referrals Pain Management Referral M46.1 - Sacroiliitis, not elsewhere classified Pulmonology Referral J92.9 - Pleural plaque without asbestos, R91.1 - Solitary pulmonary nodule Coding Level of Care Code Est Pt Level 4 (95130) Complex EM visit Add On G2211 Diagnoses Pure hypercholesterolemia E78.00 Benign essential hypertension I10 Atherosclerotic cardiovascular disease I25.10 Ischemic cardiomyopathy I25.5 Aneurysm of ascending aorta without rupture I71.21 Presence of rupture: without rupture Chronic obstructive pulmonary disease, unspecified COPD type J44.9 COPD type: unspecified COPD Pancreatic lesion K86.9 GERD without esophagitis K21.9 Impaired fasting glucose R73.01 Pseudogout M11.20 Primary osteoarthritis of knees, bilateral M17.0 Bilateral sacroiliitis M46.1 Obesity (BMI 30-39.9) E66.9
[2023-12-11 08:50] VITALS: BP 144/60; PULSE 49; O2SAT 97; BMI 31.6
[2023-12-11 10:03] VITALS: BP 120/86
== END 2023-12-11 10:10 | disposition home or self-care (01) ==
PROVIDERS: PCP Internal Medicine; Visit Provider Internal Medicine
DX: E78.00 Pure hypercholesterolemia, unspecified (principal); I10 Essential (primary) hypertension; I25.10 Atherosclerotic heart disease of native coronary artery without angina pectoris; I25.5 Ischemic cardiomyopathy; I71.21 Aneurysm of the ascending aorta, without rupture; J44.9 Chronic obstructive pulmonary disease, unspecified; K86.9 Disease of pancreas, unspecified; K21.9 Gastro-esophageal reflux disease without esophagitis; R73.01 Impaired fasting glucose; M11.20 Other chondrocalcinosis, unspecified site; M17.0 Bilateral primary osteoarthritis of knee; M46.1 Sacroiliitis, not elsewhere classified
CPT/HCPCS: 99214; G2211

== ENCOUNTER 2023-12-13 09:18 | Outpatient (REF) | payer MEDICARE, SELFPAY ==
--- NOTE | ~2023-12-13 | XR_ITS ---
EXAMINATION: XR SACROILIAC JOINTS CLINICAL INFORMATION: Sacroiliitis not otherwise classified. COMPARISON: None available. TECHNIQUE: 4 views of the sacroiliac joints FINDINGS: Degenerative changes in the imaged lower lumbar spine. The bones are diffusely demineralized. Moderate degenerative changes on limited views of the bilateral hips. Moderate degenerative changes in the bilateral sacroiliac joints. Diffuse demineralization. XR/XR sacroiliac joint min 3V IMPRESSION: Moderate degenerative changes in the bilateral sacroiliac joints.
== END 2023-12-13 09:19 | disposition home or self-care (01) ==
LOC: HO.HMGCX 09:18
PROVIDERS: PCP Internal Medicine; Visit Provider Internal Medicine
DX: M46.1 Sacroiliitis, not elsewhere classified (principal)
CPT/HCPCS: 72202

== ENCOUNTER 2023-12-20 14:20 | Outpatient (AMB) | payer MEDICARE, SELFPAY ==
--- NOTE | 2023-12-20 14:43 | A.OFFVIS_ITS ---
Vital Signs 12/20/23 15:01 Height 5 ft 9 in Weight 213 lb 4 oz BMI 31.5 BP 146/70 H Blood Pressure Location Lt brachial Position Sitting Respiration 16 Pulse 97 Pulse Source Pulse Oximeter Pulse Oximetry (%) 96 Oxygen Delivery Method Room Air Intake Visit Reasons: Sacroiliitis Intake Note: Patient comes in for initial visit was referred by primary care. Reports pain 2/10. Allergies morphine [MORPHINE] Allergy (Unknown, Verified 12/20/23 15:05) UNKNOWN HPI Comments Details: Abdirashid is very pleasant 78 years old gentleman who presents in my office with complains on pain in bilateral lower back as well as pain. He reports that this pain started 20 years ago he states that he lives in [place] for 9 months of the year. He is spends summer months usually [place]. He states that he was diagnosed with sacroiliitis back in [place] and he received sacroiliac joint injections there. He reports that his pain is varying from 3/10 to 7 of 10. He can sleep normally, he can do daily activities, he can take care of himself, and he can function normally. He reports that most severe pain he feels in his back when he is swinging his golf club while playing golf. He reports that he had x-rays of the sacroiliac joint performed by the order of his primary care physician, the radiologist did not read the x-ray yet however I personally examined the images and minimal edema could be noted on the lateral portion (iliac side) of the both sacroiliac joints. He tried physical therapy most recently 2 years ago, he states that physical therapy is ?just a Band-Aid, does not help ?. He tried chiropractic manipulations and massage therapy he feels immediate pain relief after this procedures but pain will come soon after and sometimes is being aggravated after the procedures. He received sacroiliac joint injections in the past to treat his pain and he was prescribed Naprosyn 500 mg. He takes it p.r.n. however I told him that with coronary artery disease see as below it has not a good idea to take this big doses of NSAIDs. His past medical history significant for hypertension, status post coronary artery bypass grafting x3 secondary to coronary artery disease. He currently experiences intermittent chest pain secondary to coronary artery disease and he suffers from gout. 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 He states that he might face the same procedure on his pancreatic cyst again. He admits smoking cigarettes in the past he stopped it in 1998 denies drinking alcohol drinks coffee but denies caffeinated beverages and soda and he denies recreational drugs. [facility] Medical History Obesity (BMI 30-39.9) GERD without esophagitis Lumbar degenerative disc disease Primary osteoarthritis of knees, bilateral Pseudogout Chronic obstructive pulmonary disease (COPD) Pure hypercholesterolemia Benign essential hypertension Essential hypertension Atherosclerotic cardiovascular disease Ascending aortic aneurysm Surgical History History of esophagogastroduodenoscopy (EGD) Hx of colonoscopy (~02/20/19) History of laminectomy (~2007) S/P arthroscopy of knee (~2014) History of coronary artery bypass graft x 3 (~1998) Family History Father Myocardial infarction Mother No problems noted. Social History [facility]hold Members: [facility] Alcohol intake: current Alcohol intake frequency: does not drink Patient Tobacco Use Status: Former Tobacco user e-Cigarette/Vaping Use: Never Used Second Hand Smoke Exposure: No service: Yes ([employer]) Current occupational status: retired Cognitive needs: No Hearing needs: No Vision needs: Yes Review of Systems Const All systems reviewed & are unremarkable except as noted in HPI and below Reports no additional complaints ENT Reports Normal hearing present Card Reports as per HPI Resp Reports as per HPI GI Reports as per HPI Reports no additional complaints Musc Reports as per HPI Neuro Reports no additional complaints, Reports Normal hearing present, Denies Abnormal speech present and Denies Sensory deficit (Neuro) Psych Reports no additional complaints Physical Exam Vital Signs: Last Vital Signs Pulse 97 12/20/23 15:01 Resp 16 12/20/23 15:01 BP 146/70 H 12/20/23 15:01 Pulse Ox 96 12/20/23 15:01 Oxygen Delivery Method Room Air 12/20/23 15:01 BMI result Body Mass Index 31.5 Const General: no acute distress Nutritional Appearance: obese Orientation/consciousness: patient oriented x3 Eyes General: appearance normal, both eyes and all related structures Pupils: Equal, round and reactive pupils present EOM: EOMs intact bilaterally Neck Neck: Yes full ROM Chest Chest palpation & inspection: normal inspection of the chest Resp Effort & Inspection: normal respiratory effort, able to speak in complete sentences, normal respiratory pattern, no audible wheezes and no cough Cardio Jugular venous distension: no JVD GI Inspection: Yes normal to inspection Back/Spine/Pelvis Other: Jered test, Gaenslen test, pelvic compression test all positive for bilateral pain in projection of the sacroiliac joints. Flexing forward aggravates his pain. Flexing backwards also aggravates his pain. Fourteen finger is positive for projection of the sacroiliac joints. Neuro General: patient oriented x3 and gait normal Cranial nerves: Yes CN's II-XII intact bilaterally, Yes Equal, round and reactive pupils present, Yes Normal hearing present and Yes Ability to bilaterally elevate shoulders present Speech: No Abnormal speech present Gait exam (Neuro): Normal gait present Motor exam (neuro): 5/5 motor strength present throughout Sensory Exam: No Sensory deficit (Neuro) Extrem General: No pedal edema Psych Speech and movement: Normal speech and movement present Affect: normal affect Attitude: cooperative Thought process: Normal thought process present Thought content: Normal thought content present Insight: Good insight present (Psych) Judgement: Good judgement present (Psych) Results Reviewed Results Reviewed: I personally examined the x-rays of the patient's sacroiliac joint images and there is minimal edema on the iliac side of bilateral sacroiliac joints more on the right and less on the left. Assessment & Plan Assessment & Plan (1) Bilateral sacroiliitis: Code(s): M46.1 - Sacroiliitis, not elsewhere classified Category: Medical (2) Sacroiliac joint dysfunction of both sides: Code(s): M53.3 - Sacrococcygeal disorders, not elsewhere classified Category: Medical (3) Sacroiliac joint pain: Code(s): M53.3 - Sacrococcygeal disorders, not elsewhere classified Category: Medical (4) Chronic pain syndrome: Code(s): G89.4 - Chronic pain syndrome Category: Medical Plan Risks and benefits of the steroid injections were thoroughly explained to the patient. Risks of yatrogenic diabetes, risks of other endocrine dysfunction, risks of osteoporosis were thoroughly explained to the patient. The patient had his last sacroiliac joint injection 3 years ago. Therefore we are safe in terms of osteoporosis effect of this injection. The patient agreed to go for the procedure. I will schedule this procedure accordingly. He also requested me to prescribe him Naprosyn 500 mg however I feel uncomfortable prescribing this medication because he has extensive history of coronary artery disease. If his electronic warfare specialist does not mind to prescribe him Naprosyn he can let me know and I will do the prescription or he can prescribe this medication himself. Patient Instructions: I here by testify that I spent 45 minutes in conversation with this patient as well as examination of patient's x-rays, planning of this patient's care and organizing this note. Coding Level of Care Code New Pt Level 4 (74063) Diagnoses Bilateral sacroiliitis M46.1 Sacroiliac joint dysfunction of both sides M53.3 Sacroiliac joint pain M53.3 Chronic pain syndrome G89.4
[2023-12-20 15:01] VITALS: BP 146/70; PULSE 97; RESP 16; O2SAT 96; BMI 31.5
== END 2023-12-20 15:04 | disposition home or self-care (01) ==
PROVIDERS: PCP Internal Medicine; Visit Provider Anesthesiology
DX: M46.1 Sacroiliitis, not elsewhere classified (principal); M53.3 Sacrococcygeal disorders, not elsewhere classified; G89.4 Chronic pain syndrome
CPT/HCPCS: 99204

== ENCOUNTER → 2023-12-20 14:20 | Outpatient (BNVA) | payer MEDICARE, SELFPAY | PROVIDERS: PCP Internal Medicine; Visit Provider Anesthesiology | DX: M46.1 Sacroiliitis, not elsewhere classified (principal); M53.3 Sacrococcygeal disorders, not elsewhere classified; G89.4 Chronic pain syndrome | CPT/HCPCS: 99202 ==

== ENCOUNTER 2024-01-04 08:41 | Outpatient (AMB) | payer MEDICARE, SELFPAY ==
--- NOTE | 2024-01-04 08:53 | A.OFFVIS_ITS ---
Vital Signs 01/04/24 08:56 Height 5 ft 9 in Weight 210 lb 12.191 oz BMI 31.1 BP 136/76 Blood Pressure Location Lt brachial Position Sitting Pulse 93 Intake Visit Reasons: 1 yr f/up Library Manager Required: No Accompanied by: Self / Same As Patient Allergies morphine [MORPHINE] Allergy (Unknown, Verified 12/20/23 15:05) UNKNOWN Medication List - Last Reconciled 01/04/24 by Harlan Cisneros MD albuterol sulfate 90 mcg/actuation 2 puffs inhalation Q6H PRN amlodipine 2.5 mg PO DAILY aspirin 81 mg PO DAILY diclofenac sodium 3% 1 appl topical BID PRN 30 days indomethacin 25 mg PO TID PRN losartan 50 mg PO BID magnesium oxide 400 mg PO DAILY multivitamin 1 tab PO DAILY omeprazole 40 mg PO QAM 90 days simvastatin 80 mg PO BEDTIME 90 days HPI Comments Details: Abdirashid is here for follow-up regarding thoracic aortic aneurysm. History of coronary disease and bypass surgery more than 20 years ago. He lives 8 months in [place] and reminder locally. He sees a grounds worker as well as cardiac surgeon in [place]. Since last seen, no new concerns. He states he is doing good. [facility] Medical History Obesity (BMI 30-39.9) GERD without esophagitis Lumbar degenerative disc disease Primary osteoarthritis of knees, bilateral Pseudogout Chronic obstructive pulmonary disease (COPD) Pure hypercholesterolemia Benign essential hypertension Essential hypertension Atherosclerotic cardiovascular disease Ascending aortic aneurysm Surgical History History of esophagogastroduodenoscopy (EGD) Hx of colonoscopy (~02/20/19) History of laminectomy (~2007) S/P arthroscopy of knee (~2014) History of coronary artery bypass graft x 3 (~1998) Family History Father Myocardial infarction Mother No problems noted. Social History Household Members: [facility] Alcohol intake: current Alcohol intake frequency: does not drink Patient Tobacco Use Status: Former Tobacco user e-Cigarette/Vaping Use: Never Used Second Hand Smoke Exposure: No service: Yes ([employer]) Current occupational status: retired Cognitive needs: No Hearing needs: No Vision needs: Yes Review of Systems Const Denies chills, Denies fatigue, Denies fever(s), Denies weight gain and Denies weight loss ENT Denies dizziness Card Denies chest pain, Denies leg edema, Denies lightheadedness, Denies palpitations, Denies dyspnea on exertion, Denies orthopnea and Denies other Resp Denies cough and Denies dyspnea on exertion GI Denies hematochezia and Denies change in stool character Musc Denies abnormal gait, Denies muscle weakness, Denies numbness, Denies radiating pain into limb and Denies tingling Neuro Denies abnormal gait, Denies dizziness, Denies numbness and Denies tingling Endo Denies fatigue and Denies palpitations Physical Exam Vital Signs: Last Vital Signs Pulse 93 01/04/24 08:56 BP 136/76 01/04/24 08:56 BMI result Body Mass Index 31.1 Const General: comfortable and no acute distress Orientation/consciousness: patient oriented x3 HEENT Other: Unremarkable Head: Yes normal to inspection Neck Neck: Yes normal visual inspection Chest Chest palpation & inspection: normal inspection of the chest Resp Auscultation: clear to auscultation bilaterally Cardio Palpation: normal PMI Heart sounds: S1 normal heart sound present, S2 normal heart sound present, no gallops, no murmurs and no rubs GI Palpation (GI): Soft to palpation Back/Spine/Pelvis Other: unremarkable Skin General skin exam: no rashes or lesions noted Neuro General: patient oriented x3 Extrem General: Yes normal to inspection Psych Mental Status: mental status grossly normal Office Procedures EKG Details: EKG with sinus rhythm at 93/Min; [place] prolongation to 236 milliseconds; cannot exclude old inferior anterior infarct; [place]. [id number], Complete Assessment & Plan Assessment & Plan (1) Ascending aortic aneurysm: Code(s): I71.2 - Thoracic aortic aneurysm, without rupture Category: Medical Qualifiers: Presence of rupture: without rupture Qualified Code(s): I71.21 - Aneurysm of the ascending aorta, without rupture Plan: In a recent CT from [facility], ascending aortic size 4.6/4.7 cm. Other studies-CTA from [place]- 2021- 4.7/4.8 cm. CTA in [place] 2020- 4.9/4.7 cm. Aortic arch and descending aorta are unre markable. No dissection or other pathology. Various other studies, had 4.6/4.7 cm and 4.5/4.4 cm. Overall, seems stable. No specific management as such but follow-up periodically. (2) Atherosclerotic cardiovascular disease: Comment: S/P CABG in 1998 Code(s): I25.10 - Atherosclerotic heart disease of [place] coronary artery without angina pectoris Category: Medical Plan: History of bypass surgery more than 20 years ago. Iubkfqmpmfhvva-Pyzwneb-12/2024-LVEF 50-55%; no wall motion abnormalities. Mild mitral regurgitation. Cardiac catheterization in [place]-10/[id number] vessel AIRPLANE PILOT CHIEF-fills distally via collateral; LAD occluded in the mid section; RCA AIRPLANE PILOT CHIEF; left main large without disease. RAMEY to LAD and free radial to OM patent. No other SVG. Recommended medical therapy. Clinically, no angina. Continue statins. He is on high-dose simvastatin but states that has tried numerous other statins and had many side effects. Hence no changes. LDL cholesterol seems well controlled. (3) Essential hypertension: Code(s): I10 - Essential (primary) hypertension Category: Medical Plan: On amlodipine/irbesartan. (4) First degree heart block: Code(s): I44.0 - Atrioventricular block, first degree Category: Medical Plan: Can be monitored. Coding Level of Care Code Est Pt Level 4 (25193) Diagnoses Aneurysm of ascending aorta without rupture I71.21 Presence of rupture: without rupture Atherosclerotic cardiovascular disease I25.10 Essential hypertension I10 First degree heart block I44.0 CPT Codes EKG - CPT: 63822-[id number], Complete ([id number])
[2024-01-04 08:56] VITALS: BP 136/76; PULSE 93; BMI 31.1
== END 2024-01-04 09:31 | disposition home or self-care (01) ==
PROVIDERS: PCP Internal Medicine; Visit Provider Internal Medicine
DX: I71.21 Aneurysm of the ascending aorta, without rupture (principal); I25.10 Atherosclerotic heart disease of native coronary artery without angina pectoris; I10 Essential (primary) hypertension; I44.0 Atrioventricular block, first degree
CPT/HCPCS: 93010; 99214

== ENCOUNTER → 2024-01-04 08:41 | Outpatient (BNVA) | payer MEDICARE, SELFPAY | PROVIDERS: PCP Internal Medicine; Visit Provider Internal Medicine | DX: I71.21 Aneurysm of the ascending aorta, without rupture (principal); I25.10 Atherosclerotic heart disease of native coronary artery without angina pectoris; I10 Essential (primary) hypertension; I44.0 Atrioventricular block, first degree | CPT/HCPCS: 93005; 99212 ==

== ENCOUNTER 2024-01-15 09:27 | Outpatient (AMB) | payer MEDICARE, SELFPAY ==
[2024-01-15 09:30] VITALS: BP 134/67; PULSE 80; O2SAT 96; BMI 31.4
--- NOTE | 2024-01-15 09:30 | A.OFFVIS_ITS ---
Vital Signs 01/15/24 09:30 Height 5 ft 9 in Weight 212 lb 11.937 oz BMI 31.4 BP 134/67 Blood Pressure Location Rt brachial Position Sitting Pulse 80 Pulse Source Doppler Pulse Oximetry (%) 96 Oxygen Delivery Method Room Air Intake Visit Reasons: Abnormal CT,COPD,Asthma Allergies morphine [MORPHINE] Allergy (Unknown, Verified 01/15/24 09:34) UNKNOWN Statins Adverse Reaction (Intermediate, Uncoded 01/15/24 09:38) Unknown HPI HPI Abnormal CT,COPD,Asthma: Details: 76-year-old gentleman, former 30+ pack-year smoker, quit 1998 referred for evaluation wheezing and COPD. Patient states that approximately 3 months prior he developed nocturnal wheezing. He has been tried on PPI and albuterol MDI with no significant symptomatic response. Approximately 6 weeks prior he was started by his primary care provider on Flovent with resolution of his symptoms before this appointment. Patient states that he was not able to tolerate to use Flovent further than few weeks as he developedodynophagia despite rinsing his mouth after using Flovent. So his stopped using his inhaled corticosteroid, ho wever his wheezing has not recurred. Patient does have a remote pulmonary function testing from years prior showing underlying moderate COPD. His specificly denies any dyspnea on exertion, cough, sputum production, or current wheezing. He denies family history of lung disease. After the last office visit patient continued on Breo and albuterol with good control of his underlying asthma symptoms. He did have CT chest to monitor underlying thoracic aortic aneurysm in [place] that demonstrated not previously noted calcified pleural plaque. Patient does not have history of asbestos exposure. [facility] Medical History Obesity (BMI 30-39.9) GERD without esophagitis Lumbar degenerative disc disease Primary osteoarthritis of knees, bilateral Pseudogout Chronic obstructive pulmonary disease (COPD) Pure hypercholesterolemia Benign essential hypertension Essential hypertension Atherosclerotic cardiovascular disease Ascending aortic aneurysm Surgical History History of esophagogastroduodenoscopy (EGD) Hx of colonoscopy (~02/20/19) History of laminectomy (~2007) S/P arthroscopy of knee (~2014) History of coronary artery bypass graft x 3 (~1998) Family History Father Myocardial infarction Mother No problems noted. Social History Household Members: Spouse Housing: Condominium Alcohol intake: current Alcohol intake frequency: does not drink Patient Tobacco Use Status: Former Tobacco user e-Cigarette/Vaping Use: Never Used Second Hand Smoke Exposure: No service: Yes ([employer]) Current occupational status: retired Cognitive needs: No Hearing needs: No Vision needs: Yes Review of Systems Const Denies daytime sleepiness, Denies excessive sweating, Denies fatigue, Denies fever(s), Denies lethargy, Denies malaise, Denies night sweats, Denies snoring and Denies weight loss Eyes Denies blurry vision and Denies itchy eyes ENT Denies nasal congestion, Denies post nasal drip, Denies sinus pain, Denies sinus pressure and Denies other ( Thrush) Card Denies chest pain, Denies pedal edema, Denies dyspnea, Denies orthopnea and Denies paroxysmal nocturnal dyspnea Resp Denies cough, Denies hemoptysis, Denies excessive phlegm production, Denies dyspnea, Denies snoring and Denies wheezing GI Denies abdominal pain and Denies heartburn Musc Denies myalgias, Denies arthralgias and Denies joint swelling Skin/Breast Denies rash Neuro Denies memory loss and Denies seizure-like activity Psych Denies abnormal sleep pattern, Denies anxiety and Denies memory loss Endo Denies excessive sweating, Denies fatigue and Denies heat intolerance Khris/Lymph Denies easy bruising Aller/Immun Denies itchy eyes, Denies seasonal rhinorrhea and Denies wheezing Physical Exam Vital Signs: Last Vital Signs Pulse 80 01/15/24 09:30 BP 134/67 01/15/24 09:30 Pulse Ox 96 01/15/24 09:30 Oxygen Delivery Method Room Air 01/15/24 09:30 BMI result Body Mass Index 31.4 Const General: no acute distress and alert Nutritional Appearance: not obese Orientation/consciousness: Other orientation findings ( oriented) HEENT Head: Yes atraumatic Eyes General: appearance normal, both eyes and all related structures Sclerae: sclerae normal EOM: EOMs intact bilaterally Neck Neck: Yes supple Lymphatic: no lymphadenopathy noted Resp Effort & Inspection: normal respiratory effort and no use of accessory muscles Auscultation: clear to auscultation bilaterally Cardio Rate: regular rate Rhythm: regular rhythm Heart sounds: no gallops, no murmurs and no rubs Skin General skin exam: other ( warm) Extrem General: No clubbing, No cyanosis and No edema Assessment & Plan Assessment & Plan (1) Asthma-COPD overlap syndrome: Code(s): J44.9 - Chronic obstructive pulmonary disease, unspecified Category: Medical Plan: Well controlled on Breo and albuterol MDI. Continue current regimen. (2) Pleural thickening: Code(s): J92.9 - Pleural plaque without asbestos Category: Medical Plan: Results of CT chest reviewed. 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 Will continue to monitor. Patient will have follow-up CT scan to monitor his thoracic aortic aneurysm in 6 months, will review results at that time. Coding Level of Care Code Est Pt Level 4 (97619) Diagnoses Asthma-COPD overlap syndrome J44.9 Pleural thickening J92.9
== END 2024-01-15 09:55 | disposition home or self-care (01) ==
PROVIDERS: PCP Internal Medicine; Visit Provider Internal Medicine Pulmonary Disease
DX: J44.9 Chronic obstructive pulmonary disease, unspecified (principal); J92.9 Pleural plaque without asbestos
CPT/HCPCS: 99214

== ENCOUNTER → 2024-01-15 09:27 | Outpatient (BNVA) | payer MEDICARE, SELFPAY | PROVIDERS: PCP Internal Medicine; Visit Provider Internal Medicine Pulmonary Disease | DX: J44.9 Chronic obstructive pulmonary disease, unspecified (principal); J92.9 Pleural plaque without asbestos | CPT/HCPCS: 99212 ==

== ENCOUNTER 2024-01-30 06:19 | Outpatient (REF) | payer MEDICARE, SELFPAY ==
--- NOTE | ~2024-01-30 | FL_ITS ---
EXAMINATION: XR FLUOROSCOPY WITH IMAGES CLINICAL INFORMATION: Sacrococcygeal disorders, not elsewhere specified. COMPARISON: 12/13/2023 plain films SI joints. TECHNIQUE: Fluoroscopy provided to: Dr. Samano Fluoroscopy time: 0.3 minutes DAP: 0.155 mGycm2 Images: 2 FINDINGS: 2 images demonstrate needle placement and contrast injection within the synovial bilateral SI joints. FL/FL guidance in treatment room IMPRESSION: Fluoroscopic guidance. Please refer to the full operative report for details. Electronically signed by: Ricky Schmitt MD 03/29/2024 02:11 PM EDT
== END 2024-01-30 06:20 | disposition home or self-care (01) ==
LOC: CF 06:19
PROVIDERS: Visit Provider Anesthesiology
DX: M53.3 Sacrococcygeal disorders, not elsewhere classified (principal); M46.1 Sacroiliitis, not elsewhere classified
CPT/HCPCS: 27096; J2795; J3301; Q9967

== ENCOUNTER 2024-01-30 09:00 | Outpatient (AMB) | payer MEDICARE, SELFPAY ==
[2024-01-30 09:12] VITALS: BP 148/69; PULSE 43; RESP 14; O2SAT 94; BMI 31.0
--- NOTE | 2024-01-30 09:12 | A.OFFVIS_ITS ---
Vital Signs 01/30/24 09:12 01/30/24 10:11 Height 5 ft 9 in Weight 210 lb BMI 31.0 BP 148/69 H 148/84 H Blood Pressure Location Rt brachial Rt brachial Position Sitting Sitting Respiration 14 14 Pulse 43 L 76 Pulse Source Pulse Oximeter Pulse Oximeter Pulse Oximetry (%) 94 96 Oxygen Delivery Method Room Air Room Air Comment Pre-Op Post-Op Intake Visit Reasons: Bilateral SIJ Therapeutic Automotive Engineer Required: No Accompanied by: Spouse Allergies morphine [MORPHINE] Allergy (Unknown, Verified 01/30/24 09:13) UNKNOWN Statins Adverse Reaction (Intermediate, Uncoded 01/15/24 09:38) Unknown [facility] Medical History Obesity (BMI 30-39.9) GERD without esophagitis Lumbar degenerative disc disease Primary osteoarthritis of knees, bilateral Pseudogout Chronic obstructive pulmonary disease (COPD) Pure hypercholesterolemia Benign essential hypertension Essential hypertension Atherosclerotic cardiovascular disease Ascending aortic aneurysm Surgical History History of esophagogastroduodenoscopy (EGD) Hx of colonoscopy (~02/20/19) History of laminectomy (~2007) S/P arthroscopy of knee (~2014) History of coronary artery bypass graft x 3 (~1998) Family History Father Myocardial infarction Mother No problems noted. Social History Household Members: Spouse Housing: Condominium Alcohol intake: current Alcohol intake frequency: does not drink Patient Tobacco Use Status: Former Tobacco user e-Cigarette/Vaping Use: Never Used Second Hand Smoke Exposure: No service: Yes ([employer]) Current occupational status: retired Cognitive needs: No Hearing needs: No Vision needs: Yes Physical Exam Vital Signs: Last Vital Signs Pulse 76 01/30/24 10:11 Resp 14 01/30/24 10:11 BP 148/84 H 01/30/24 10:11 Pulse Ox 96 01/30/24 10:11 Oxygen Delivery Method Room Air 01/30/24 10:11 BMI result Body Mass Index 31.0 Assessment & Plan Assessment & Plan (1) Sacroiliac joint pain: Code(s): M53.3 - Sacrococcygeal disorders, not elsewhere classified Category: Medical (2) Sacroiliac joint dysfunction of both sides: Code(s): M53.3 - Sacrococcygeal disorders, not elsewhere classified Category: Medical (3) Bilateral sacroiliitis: Code(s): M46.1 - Sacroiliitis, not elsewhere classified Category: Medical Plan Bilateral therapeutic sacroiliac joint injection. Informed consent was explained thoroughly to the patient. All questions about benefits and risks for the procedure were answered. Patient came to the operating room and was positioned prone on the operating table with the pillow under the pelvis. Time out was performed delineating name and of the patient, allergies and the nature of the procedure. The lower back and buttocks of the patient were prepped with ChloraPrep prepped and draped with sterile utility towels. C-arm was brought over the operating field and sq picture of patient's pelvis was demonstrated on the screen. For the right SI joint tilting C-arm contralateral to the site of the joint the most posterior portion of the joints was superimposed with anterior silhouette of the joint. Skin was injected in the projection of the joint slightly medial to the location of the joint with 25 gauge 1/2 inch needle using local lidocaine 2% .After that 22 gauge 3 and 1/2 inch needle was driven to the right joint in tunnel vision fashion. When needle entered the joint capsule injection of the contrast was performed demonstrating intra-articular and minimally periarticular spread of the contrast. After that 4 cc. of ropivacaine 0.5% was injected into the joint. Upon completion of the injections the needle was removed Sterile dressing was applied. Upon completion of the injection to the right injection to the left joint was performed in mirroring fashion. Upon completion of the procedure sterile Band-Aids were applied, the patient was taken outside of the operating room to the recovery room where recovered uneventfully. Orders: Orders FL guidance in treatment room Today M53.3 - Sacrococcygeal disorders, not elsewhere classified Coding Level of Care Code Procedure Only Diagnoses Sacroiliac joint pain M53.3 Sacroiliac joint dysfunction of both sides M53.3 Bilateral sacroiliitis M46.1
[2024-01-30 10:11] VITALS: BP 148/84; PULSE 76; RESP 14; O2SAT 96
== END 2024-01-30 10:08 | disposition home or self-care (01) ==
LOC: HO.PMCPRC 09:00
PROVIDERS: PCP Internal Medicine; Visit Provider Anesthesiology
DX: M53.3 Sacrococcygeal disorders, not elsewhere classified (principal); M46.1 Sacroiliitis, not elsewhere classified
CPT/HCPCS: 27096

== ENCOUNTER 2024-03-07 10:40 | Outpatient (AMB) | payer MEDICARE, SELFPAY ==
[2024-03-07 10:49] VITALS: BP 124/89; PULSE 74; O2SAT 95; BMI 30.3
--- NOTE | 2024-03-07 10:49 | MHC.OFFVIS ---
Vital Signs 03/07/24 10:49 Height 5 ft 9 in Weight 205 lb BMI 30.3 BP 124/89 Blood Pressure Location Rt brachial Position Sitting Pulse 74 Pulse Source Pulse Oximeter Pulse Oximetry (%) 95 Oxygen Delivery Method Room Air Intake Visit Reasons: bilateral SIJ Therapeutic injection Allergies morphine [MORPHINE] Allergy (Unknown, Verified 03/07/24 10:50) UNKNOWN Statins Adverse Reaction (Intermediate, Uncoded 03/07/24 10:50) Unknown Medication List - Last Reconciled 03/07/24 by Brooklyn Phipps albuterol sulfate 90 mcg/actuation 2 puffs inhalation Q6H PRN amlodipine mg PO aspirin 81 mg PO DAILY diclofenac sodium 3% 1 appl topical BID PRN 30 days indomethacin 25 mg PO TID PRN losartan 50 mg PO BID magnesium oxide 400 mg PO DAILY multivitamin 1 tab PO DAILY omeprazole 40 mg PO QAM 90 days simvastatin 80 mg PO BEDTIME 90 days HPI Comments Details: Patient presents to the office today for follow-up, 1 month status post bilateral therapeutic sacroiliac joint injection Patient reports 100% pain relief with improvement in function and mobility since the injection Denies any side effect Denies changes in medications, past medical history, allergies Prior: Abdirashid is very pleasant 78 years old gentleman who presents in my office with complains on pain in bilateral lower back as well as pain. He reports that this pain started 20 years ago he states that he lives in [place] for 9 months of the year. He is spends summer months usually [place]. He states that he was diagnosed with sacroiliitis back in [place] and he received sacroiliac joint injections there. He reports that his pain is varying from 3/10 to 7 of 10. He can sleep normally, he can do daily activities, he can take care of himself, and he can function normally. He reports that most severe pain he feels in his back when he is swinging his golf club while playing golf. He reports that he had x-rays of the sacroiliac joint performed by the order of his primary care physician, the radiologist did not read the x-ray yet however I personally examined the images and minimal edema could be noted on the lateral portion (iliac side) of the both sacroiliac joints. He tried physical therapy most recently 2 years ago, he states that physical therapy is ?just a Band-Aid, does not help ?. He tried chiropractic manipulations and massage therapy he feels immediate pain relief after this procedures but pain will come soon after and sometimes is being aggravated after the procedures. He received sacroiliac joint injections in the past to treat his pain and he was prescribed Naprosyn 500 mg. He takes it p.r.n. however I told him that with coronary artery disease see as below it has not a good idea to take this big doses of NSAIDs. His past medical history significant for hypertension, status post coronary artery bypass grafting x3 secondary to coronary artery disease. He currently experiences intermittent chest pain secondary to coronary artery disease and he suffers from gout. 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 He states that he might face the same procedure on his pancreatic cyst again. He admits smoking cigarettes in the past he stopped it in 1998 denies drinking alcohol drinks coffee but denies caffeinated beverages and soda and he denies recreational drugs. [facility] Medical History Obesity (BMI 30-39.9) GERD without esophagitis Lumbar degenerative disc disease Primary osteoarthritis of knees, bilateral Pseudogout Chronic obstructive pulmonary disease (COPD) Pure hypercholesterolemia Benign essential hypertension Essential hypertension Atherosclerotic cardiovascular disease Ascending aortic aneurysm Surgical History History of esophagogastroduodenoscopy (EGD) Hx of colonoscopy (~02/20/19) History of laminectomy (~2007) S/P arthroscopy of knee (~2014) History of coronary artery bypass graft x 3 (~1998) Family History Father Myocardial infarction Mother No problems noted. Social History Household Members: Spouse [facility] Alcohol intake: current Alcohol intake frequency: does not drink Patient Tobacco Use Status: Former Tobacco user e-Cigarette/Vaping Use: Never Used Second Hand Smoke Exposure: No service: Yes ([employer]) Current occupational status: retired Cognitive needs: No Hearing needs: No Vision needs: Yes Review of Systems Const All systems reviewed & are unremarkable except as noted in HPI and below Physical Exam Vital Signs: Last Vital Signs Pulse 74 03/07/24 10:49 BP 124/89 03/07/24 10:49 Pulse Ox 95 03/07/24 10:49 Oxygen Delivery Method Room Air 03/07/24 10:49 BMI result Body Mass Index 30.3 General: awake, alert, oriented. Answers questions appropriately. Fully engaged in examination. Skin: warm, dry, intact HEENT: Normocephalic. Hearing intact. Cardiac: External chest normal in appearance. Respiratory: No cough, audible wheezing or stridor. Abdomen: without gross distension. MS: No obvious swelling or deformities. Neurological: Oriented to person, place, time and situation. Thought process intact. No gait abnormalities appreciated. Psychiatric: Appropriate mood and affect. Good judgment and insight. Assessment & Plan Assessment & Plan (1) Sacroiliac joint pain: Code(s): M53.3 - Sacrococcygeal disorders, not elsewhere classified Category: Medical (2) Sacroiliac joint dysfunction of both sides: Code(s): M53.3 - Sacrococcygeal disorders, not elsewhere classified Category: Medical (3) Bilateral sacroiliitis: Code(s): M46.1 - Sacroiliitis, not elsewhere classified Category: Medical Plan Patient presented to the office today for follow-up bilateral therapeutic sacroiliac injections performed 01/30/[address] Samano Reports 100% relief in pain with improvement in functional mobility since the injections. Discuss repeat injections when pain returns, he will call to schedule. All questions and concerns were answered, patient agrees with the plan. Follow up in pain returns, sooner if needed Coding Level of Care Code Est Pt Level 3 (57954) Complex EM visit Add On G2211 Diagnoses Sacroiliac joint pain M53.3 Sacroiliac joint dysfunction of both sides M53.3 Bilateral sacroiliitis M46.1
== END 2024-03-07 11:07 | disposition home or self-care (01) ==
PROVIDERS: PCP Internal Medicine; Visit Provider Registered Nurse Emergency
DX: M53.3 Sacrococcygeal disorders, not elsewhere classified (principal); M46.1 Sacroiliitis, not elsewhere classified
CPT/HCPCS: 99213; G2211

== ENCOUNTER → 2024-03-07 10:40 | Outpatient (BNVA) | payer MEDICARE, SELFPAY | PROVIDERS: PCP Internal Medicine; Visit Provider Registered Nurse Emergency | DX: M46.1 Sacroiliitis, not elsewhere classified (principal); M53.3 Sacrococcygeal disorders, not elsewhere classified | CPT/HCPCS: 99212 ==

== ENCOUNTER 2024-03-13 15:54 | Outpatient (AMB) | payer MEDICARE, SELFPAY ==
[2024-03-13 16:06] VITALS: BP 110/70; PULSE 68; O2SAT 96; BMI 30.7
--- NOTE | 2024-03-13 16:06 | A.OFFPC_ITS ---
Vital Signs 03/13/24 16:06 Height 5 ft 9 in Weight 208 lb BMI 30.7 BP 110/70 Blood Pressure Location Lt brachial Position Sitting Pulse 68 Pulse Source Pulse Oximeter Pulse Oximetry (%) 96 Oxygen Delivery Method Room Air Intake Visit Reasons: hyperlipidemia, CAD, HTN, IFG Center Machine Set Up Operator Required: No Accompanied by: Self / Same As Patient Allergies morphine [MORPHINE] Allergy (Unknown, Verified 03/13/24 16:32) UNKNOWN Statins Adverse Reaction (Intermediate, Uncoded 03/13/24 16:32) Unknown Medication List - Last Reconciled 03/13/24 by Donald Monroe MD albuterol sulfate 90 mcg/actuation 2 puffs inhalation Q6H PRN amlodipine 2.5 mg PO DAILY aspirin 81 mg PO DAILY diclofenac sodium 3% 1 appl topical BID PRN 30 days fluticasone furoate-vilanterol 100-25 mcg/dose (Breo Ellipta) 1 inh inhalation DAILY losartan 50 mg PO BID magnesium oxide 400 mg PO DAILY multivitamin 1 tab PO DAILY naproxen 500 mg PO BID PRN 30 days omeprazole 40 mg PO QAM 90 days simvastatin 80 mg PO BEDTIME 90 days Tobacco use date assessed: 03/13/24 Fall risk assessment: No Falls in past year Last assessed Fall Risk: 03/13/24 Dental Screening Dental Screen Date: 03/13/24 Did you have a dental visit in the last 12 months?: Yes Did you have a dental problem in the last 6 months where you did not have access to dental care?: No Was dental information given to patient?: Patient has dentist HPI hyperlipidemia, CAD, HTN, IFG HPI Details Patient comes in today for his follow up visit States that he currently feels okay and that his low back pain has subsided significantly since his back injection from pain management last month States that he is currently making preparations to head down to [place] for the winter and he will be leaving in a couple of weeks He denies any headaches or dizziness Denies any chest pains, no SOB No nausea/vomiting, no abdominal pain No change in bowel habits noted Needs his Naproxen Rx refilled today - states that he only takes it as needed and mostly before he plays golf to help with his back pain He was not able to get his follow up labs done prior to his appointment today [facility] Medical History Obesity (BMI 30-39.9) GERD without esophagitis Lumbar degenerative disc disease Primary osteoarthritis of knees, bilateral Pseudogout Chronic obstructive pulmonary disease (COPD) Pure hypercholesterolemia Benign essential hypertension Essential hypertension Atherosclerotic cardiovascular disease Ascending aortic aneurysm Surgical History History of esophagogastroduodenoscopy (EGD) Hx of colonoscopy (~02/20/19) History of laminectomy (~2007) S/P arthroscopy of knee (~2014) History of coronary artery bypass graft x 3 (~1998) Family History Father Myocardial infarction Mother No problems noted. Social History Household Members: Spouse Housing: [facility] Alcohol intake: current Alcohol intake frequency: does not drink Patient Tobacco Use Status: Former Tobacco user e-Cigarette/Vaping Use: Never Used Second Hand Smoke Exposure: No service: Yes ([employer]) Current occupational status: retired Cognitive needs: No Hearing needs: No Vision needs: Yes Questionnaire PHQ-9 Over the last 2 weeks, how often have you been bothered by any of the following problems? 1. Little interest or pleasure in doing things: not at all 2. Feeling down, depressed, or hopeless: not at all 3. Trouble falling or staying asleep, or sleeping too much: not at all 4. Feeling tired or having little energy: not at all 5. Poor appetite or overeating: not at all 6. Feeling bad about yourself - or that you are a failure or have let yourself or your family down: not at all 7. Trouble concentrating on things, such as reading the newspaper or watching television: not at all 8. Moving or speaking so slowly that other people could have noticed. Or the opposite - being so fidgety or restless that you have been moving around a lot more than usual: not at all 9. Thoughts that you would be better off or of hurting yourself in some way: not at all Total score: 0 Depression Screening Interpretation: Negative Depression Screening Done: Yes 51325 - PHQ-9 Billing: Yes Source: Developed by Drs. Oliver Jean, Alfreda Joseph, Pérez Rodas and colleagues, with an educational bar from [email or web address]. Thrive Questionnaire Date Thrive assessed: 03/13/24 I am a: Patient What is your living situation today?: I have a steady place to live Within the past 12 months, did the food you bought not last and you didn't have the money to get more?: Never true Within the past 12 months, did you worry whether your food would run out before you got money to buy more?: Never true Do you have trouble paying for medicines?: No Do you have trouble getting transportation to medical appointments?: No Do you have trouble paying your heating and electricity bill?: No Do you have trouble taking care of your child, family member or friend?: No Do you have trouble with day-to-day activities such as bathing, preparing meals, shopping, managing finances, etc.?: No Are you currently unemployed and looking for a job?: No Are you interested in more education?: No Please select the resources that you would like help with: None Currently or been in a relationship where the following occur: No concerns reported THRIVE Score: 0 AUDIT C Alcohol Use Questionnaire (AUDIT-C) 1. How often do you have a drink containing alcohol?: Never 3. How often do you have six or more drinks on one occasion?: Never Total Score: 0 Score Reviewed/Action Taken: Yes CHER-7 AMB Questionnaire CHER-7 Date CHER - 7 assessed: 03/13/24 Feeling nervous, anxious, or on edge: 0 = Not at all Not being able to stop or control worryin = Not at all Worrying too much about different things: 0 = Not at all Trouble relaxin = Not at all Being so restless that it is hard to sit still: 0 = Not at all Becoming easily annoyed or irritable: 0 = Not at all Feeling afraid as if something awful might happen: 0 = Not at all Total CHER-7 score (0-4 normal; 5-9 mild; 10-14 moderate; 15-21 severe): 0 Source: Developed by Alfreda Harmon Kurt Kroenke and colleagues, with an educational bar from [email or web address]. Review of Systems Const Denies chills, Denies fatigue, Denies fever(s) and Denies headache(s) ENT Denies dysphagia, Denies dizziness, Denies otalgia, Denies headache(s), Denies neck pain, Denies odynophagia and Denies sore throat Card Denies chest pain, Denies palpitations and Denies dyspnea (breathing improved with his Rx/inhaler) Resp Denies chest congestion, Denies cough, Denies dyspnea (breathing improved with his Rx/inhaler) and Denies wheezing GI Denies abdominal pain, Denies constipation, Denies dysphagia, Denies early satiety, Denies heartburn, Denies diarrhea, Denies nausea, Denies odynophagia and Denies vomiting Denies dysuria, Denies nocturia and Denies urinary frequency Musc Reports back pain (much improved after SI joint injection last month), Reports arthralgias (right shoulder, on and off) and Denies neck pain Skin/Breast Denies rash Neuro Denies dizziness and Denies headache(s) Endo Denies fatigue and Denies palpitations Aller/Immun Denies wheezing Physical exam (Primary Care) Vital Signs: Last Vital Signs Pulse 68 03/13/24 16:06 BP 110/70 03/13/24 16:06 Pulse Ox 96 03/13/24 16:06 Oxygen Delivery Method Room Air 03/13/24 16:06 BMI result Body Mass Index 30.7 Tobacco/Smoking Status: Tobacco use Status Tobacco use date assessed 03/13/24 03/13/24 16:12 Patient Tobacco Use Status Former Tobacco user 03/13/24 16:12 e-Cigarette/Vaping Use Never Used 03/13/24 16:12 PHQ-9: PHQ-9 Score PHQ-9: Total score 0 03/13/24 16:12 Depression Screening Interpretation: Negative Thrive Assessment: Date of Thrive Assessment Date Thrive assessed 03/13/24 03/13/24 16:12 Currently or been in a relationship where the following occur: No concerns reported Const General: no acute distress and alert HENMT Ears: TM's normal bilaterally and EAC's normal Throat: Yes posterior oropharynx normal and Yes tonsils normal (no TP congestion noted) Neck Neck: Yes no lymphadenopathy and Yes supple Thyroid: Thyroid normal Resp Auscultation: clear to auscultation bilaterally, no rales, no wheezes and diminished lung sounds (slightly) bilateral Cardio Rate: regular rate Rhythm: regular rhythm Heart sounds: no murmurs GI Palpation (GI): Soft to palpation and nontender Auscultation: normal bowel sounds General: Yes no CVA tenderness Back/Spine/Pelvis Back: no CVA tenderness Thoracic/Lumbar Spine: lumbar spinal tenderness (mild) Sacroiliac joints: bilaterally (mild) tender to palpation Skin Rashes: no rashes Extrem General: Yes no clubbing, cyanosis or edema Assessment and Plan Assessment & Plan (1) Pure hypercholesterolemia: Code(s): E78.00 - Pure hypercholesterolemia, unspecified Plan: Patient was not able to get his follow up labs done prior to his appointment today His cholesterol levels were at goal on his labs done previously in November 2023 States that he will be getting some routine labs done for his PCP in [place] in a few weeks and he will make sure they send us a copy of those labs for review as well Reinforced low cholesterol diet Continue Simvastatin 80 mg QD Will have patient recheck his labs and fasting lipids in November 2024 when he returns from his winter stay down in [place] - states that he will be leaving for [place] early next month (March 2024) (2) Benign essential hypertension: Code(s): I10 - Essential (primary) hypertension Plan: Reinforced low sodium diet - goal is systolic BP of at least 130 mm or less, due to his AAA Continue Amlodipine 2.5 mg QD and Losartan 50 mg BID He is reminded to continue monitoring his blood pressure regularly (3) Atherosclerotic cardiovascular disease: Comment: S/P CABG in 1998 Code(s): I25.10 - Atherosclerotic heart disease of [place] coronary artery without angina pectoris Plan: He is asymptomatic from a cardiac standpoint Continue Aspirin 81 mg QD (4) Ischemic cardiomyopathy: Code(s): I25.5 - Ischemic cardiomyopathy Plan: Echocardiogram done (in [place] in October 2020 revealed normal LV size; systolic function is mildly to moderately reduced and EF is estimated to be around 40 to 45%, with NO regional wall motion abnormalities noted. There is moderate diffuse hypokinesia and wall thickness is mildly increased. Doppler parameters are reportedly consistent with abnormal LV relaxation (grade 1 diastolic dysfunction) Follow up with cardiology as scheduled (5) Ascending aortic aneurysm: Code(s): I71.2 - Thoracic aortic aneurysm, without rupture Qualifiers: Presence of rupture: without rupture Qualified Code(s): I71.21 - Aneurysm of the ascending aorta, without rupture Plan: Chest CT done in February 2019 revealed an aneurysmal dilatation of the ascending aorta with maximal dimension in the transverse plane of 4.5 cm abd perpendicular to a center line of 4.4 cm (maximal dimension for patient at age 73 should be 4.3 cm) Repeat CTA in August 2020 (done in [place]) revealed (+) fusiform ascending aortic aneurysm measuring 49/47 mm. Aortic arch and descending aorta are unremarkable. No dissection or other pathology. Per prior studies, had 4.6/4.7 cm and 4.5/4.4 cm. Hence that has increased in size He had another follow up CTA done in March 2022 at [facility] - his AAA remains unchanged on this imaging procedure, with evidence of CABG and cardiomegaly and no evidence of PE. 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 and recommended to consider follow up pancreatic MRI with contrast in 6 months He most recently had a follow up chest CT done in [place] on 11/16/2023, which shows a stable thoracic aortic aneurysmal dilatation measuring 4.6 x 4.7 cm with no evidence of dissection Follow up with cardiology as scheduled (6) Chronic obstructive pulmonary disease (COPD): Code(s): J44.9 - Chronic obstructive pulmonary disease, unspecified Qualifiers: COPD type: unspecified COPD Qualified Code(s): J44.9 - Chronic obstructive pulmonary disease, unspecified Plan: PFT done in 2012 revealed mild to moderate degree of restrictive pulmonary disease and moderately severe obstructive airway disease with no reversibility after bronchodilator therapy Patient states that he also had another PFT done at [facility] recently but no report of this is available in his records He developed some sore throat after he was started on Flovent HFA at a previous visit; was switched to Breo Ellipta when he was seen by pulmonary later on but he could not afford the co-pay and went back on Flovent on his own He was not aware that Rx for Symbicort was sent in for him alternatively by pulmonary then and was willing to try this instead - Rx for Symbicort 160-4.5 mcg was again sent in at his last visit but he somehow ended up instead on Advair HFA 115-21 mcg 1 inhalation BID He now appears to be on Breo Ellipta (per last pulmonary OV notes from December 2023) and appear to be doing well on it so will just have him continue on Breo Ellipta 100-25 mcg 1 inhalation QD and Albuterol Sulfate HFA 1 to 2 inhalation every 6 hrs as needed His chest CT in March 2023 also revealed the presence of a 2.5 x 1.2 cm nodular airspace density in the posterior aspect of the right lung base that is mostly unchanged from prior study; he had chronic right pleural thickening with some calcifications that are also stable at the time Patient will have follow-up CT scan to monitor his thoracic aortic aneurysm in a few months and pulmonary will reportedly review his results and also look up his chest findings as well at that time Follow up with pulmonary as scheduled (7) Pancreatic lesion: Comment: EUS and Bx of pancreatic & esophageal lesions came out BENIGN on pathology Code(s): K86.9 - Disease of pancreas, unspecified Plan: Patient underwent EUS and Bx of his pancreatic and esophageal lesions last year (2022) - pathology came out BENIGN and it was reported as Nelosn's mucosa, negative for dysplasia. Squamous mucosa with mild active esophagitis, and GMS and PASD stains for fungal organisms are negative Patient was reassured of his benign findings Follow up with GI as scheduled (8) GERD without esophagitis: Code(s): K21.9 - Gastro-esophageal reflux disease without esophagitis Plan: Dietary restrictions reinforced Continue Omeprazole 40 mg QD in light of his Nelson's esophagitis on his recent Bx Follow up with GI as scheduled (9) Impaired fasting glucose: Code(s): R73.01 - Impaired fasting glucose Plan: His FBS was normal at 98 mg/dl on his labs done previously; HgbA1c was also normal at 5.5% then Reinforced low calorie diet/exercise as tolerated (10) Pseudogout: Code(s): M11.20 - Other chondrocalcinosis, unspecified site Plan: He follows up with orthopedics down in [place] for this when he is down there in the winter and spring months States that he currently has no acute issues Takes Naproxen 500 mg BID PRN with food for pain - Rx refilled today (11) Primary osteoarthritis of knees, bilateral: Code(s): M17.0 - Bilateral primary osteoarthritis of knee Plan: States that he receives cortisone injections in his knees from orthopedics in [place] when needed Follow up with orthopedics as scheduled (12) Bilateral sacroiliitis: Code(s): M46.1 - Sacroiliitis, not elsewhere classified Plan: X-rays of the sacroiliac joints done back in November 2023 revealed (+) moderate degenerative changes in the bilateral sacroiliac joints He recalls 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 for 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 [place] when needed for years with (+) relief but his pain specialist retired a few years ago and he has not been able to get any injections in the past 3 years We referred him then to [facility] and he received SI joint injection last month (January 2024) with (+) relief of his low back pain He was advised to just see them on an as-needed basis for SI injections PRN (13) Obesity (BMI 30-39.9): Code(s): E66.9 - Obesity, unspecified Plan: Reinforced diet/exercise as tolerated/lose weight Plan Follow up in November 2024 when patient returns from his winter [place] stay Orders: Orders Comprehensive [place]. Panel Fast 11/24/24 E78.00 - Pure hypercholesterolemia, unspecified Lipid Panel 11/24/24 E78.00 - Pure hypercholesterolemia, unspecified TSH reflex Free T4 11/24/24 E78.00 - Pure hypercholesterolemia, unspecified UA CC w/rflx Micro + Cult 11/24/24 R30.0 - Dysuria Vitamin D 25-OH Total 11/24/24 E55.9 - Vitamin D deficiency, unspecified Complete Blood Count Auto Diff 11/24/24 D64.9 - Anemia, unspecified Hemoglobin A1c 11/24/24 R73.01 - Impaired fasting glucose Medications: New naproxen Take with food only as needed for pain 500 mg PO BID 30 days PRN 60 tabs 2RF pain Coding Level of Care Code Est Pt Level 4 (19882) Diagnoses Pure hypercholesterolemia E78.00 Benign essential hypertension I10 Atherosclerotic cardiovascular disease I25.10 Ischemic cardiomyopathy I25.5 Aneurysm of ascending aorta without rupture I71.21 Presence of rupture: without rupture Chronic obstructive pulmonary disease, unspecified COPD type J44.9 COPD type: unspecified COPD Pancreatic lesion K86.9 GERD without esophagitis K21.9 Impaired fasting glucose R73.01 Pseudogout M11.20 Primary osteoarthritis of knees, bilateral M17.0 Bilateral sacroiliitis M46.1 Obesity (BMI 30-39.9) E66.9
== END 2024-03-13 16:41 | disposition home or self-care (01) ==
PROVIDERS: PCP Internal Medicine; Visit Provider Internal Medicine
DX: E78.00 Pure hypercholesterolemia, unspecified (principal); I71.21 Aneurysm of the ascending aorta, without rupture; J44.9 Chronic obstructive pulmonary disease, unspecified; M46.1 Sacroiliitis, not elsewhere classified; I10 Essential (primary) hypertension; I25.10 Atherosclerotic heart disease of native coronary artery without angina pectoris; I25.5 Ischemic cardiomyopathy; K86.9 Disease of pancreas, unspecified; K21.9 Gastro-esophageal reflux disease without esophagitis; R73.01 Impaired fasting glucose; M11.20 Other chondrocalcinosis, unspecified site

== ENCOUNTER → 2024-03-13 15:54 | Outpatient (BNVA) | payer MEDICARE, SELFPAY | PROVIDERS: PCP Internal Medicine; Visit Provider Internal Medicine | DX: E78.00 Pure hypercholesterolemia, unspecified (principal); I10 Essential (primary) hypertension; I25.10 Atherosclerotic heart disease of native coronary artery without angina pectoris; I25.5 Ischemic cardiomyopathy; I71.21 Aneurysm of the ascending aorta, without rupture; J44.9 Chronic obstructive pulmonary disease, unspecified; K86.9 Disease of pancreas, unspecified; K21.9 Gastro-esophageal reflux disease without esophagitis; R73.01 Impaired fasting glucose | CPT/HCPCS: 99212 ==

== ENCOUNTER 2024-12-18 09:35 | Outpatient (REF) | payer MEDICARE, SELFPAY ==
--- OUTSIDE RECORDS SUMMARY | 2024-12-18 10:45 | XMS_ITS | Patient Health Record ---
Author Organization [facility] Address [address] [place] [address] Care Team Providers Care Lead Military Analyst Name Role Phone Morteza Viera M.D. Primary Care Provider Estefania radha Alcaraz Jr Wilfrido Unavailable Allergies Allergen (clinical drug ingredient) Drug/Non Drug Allergy documented on EMR Reaction Allergy Type Onset Date Status morphine Morphine Sulfate Unknown Drug Allergy Active Reason For Referral No Information Medications Medication SIG (Take, Route, Frequency, Duration) Notes Start Date End Date Status Naproxen 500 MG 1 tablet with food o r milk as needed Orally every 12 hrs Active Colyte with Flavor Packs 240 GM As directed Orally Over the specified time. for 1 day(s) 12/05/2018 Active Atenolol 25 MG 1 tablet Orally Once a day for 30 day(s) Active Simvastatin 80 MG 1 tablet in the even ing Orally Once a day for 30 day(s) Active Lisinopril 30 MG 1 tablet Orally Once a day for 30 day(s) Active amLODIPine Besylate 10 MG 1 tablet Orall y Once a day for 30 day(s) Active Immunizations Vaccine Route Administration Date Status Comme nts Influenza Unknown 04/03/2018 Administered Social History Tobacco Use: Social History Observation Description Date Details (start date - stop date) Former Smoker NA - NA Tobacco Use/Smoking Question Answer Notes Patient is a former smoker How long has it been since you last smoked? > 10 years Alcohol Screen Question Answer Notes Did you have a drink containing alcohol in the p ast year? No Points 0 Interpretation Negative Problems Problem Type SNOMED Code ICD Code Onset Dates Problem Status W/U Status Risk Notes Problem 419931553 Colon cancer screening (Z12.11) Active confirmed Problem [id number] [facility] current use of non-steroidal anti-inflammato bernarda (NSAID) (Z79.1) Active confirmed Plan Of Treatment Future Test Test Name Order Date COLONOSCOPY 12/05/2018 Insurance Providers Payer Name Payer Address Payer Phone Subscriber Number Group Number Insured Name Patient Relationship to Insured Coverage Start Date Coverage End Date MEDICARE OF [place] [address] [place] [address] [id number] RAQUEL [place] Self - patient is the insured [facility](N o referral needed) [address] [place] [address] [id number] RAQUEL SANF[place] Self - patient is the insured Medical (General) History Medical History History ICD Code coronary artery disease [place] 1998 mini stroke hypertension elevated cholesterol pseudogout Surgical History Surgery Date(Month/Year) back surgery 1988,2004 cataract-lens implants both eyes 2016 right knee arthroscopy 2015 CABG x3 1999
[2024-12-18 13:32] LABS: MANUAL DIFF FLAG NO
[2024-12-18 13:36] LABS: Basophils Absolute Auto 0.1 X10*3/uL (0.0-0.2); Basophils Percent Auto 0.8 % (0-2); Eosinophils Absolute Auto 0.7 X10*3/uL (0.0-0.4); Eosinophils Percent Auto 6.5 % (0-4); Hematocrit 47.5 % (42.0-52.0); Hemoglobin 16.4 g/dl (14.0-18.0); Imm Gran Abs Auto 0.03 X10*3/uL (0.00-0.03); Imm Gran Pct Auto 0.3 % (0.0-0.4); Lymphocytes Absolute Auto 2.9 X10*3/uL (1.2-4.9); Lymphocytes Percent Auto 27.4 % (20-40); Mean Corpuscular HGB Conc 34.5 g/dl (31.0-36.0); Mean Corpuscular Hemoglobin 33.2 pg (27.0-33.0); Mean Corpuscular Volume 96.2 fL (80.0-98.0); Mean Platelet Volume 8.8 fL (9.4-12.4); Monocytes Absolute Auto 0.7 X10*3/uL (0.1-1.2); Monocytes Percent Auto 6.4 % (2-11); Neutrophils Absolute Auto 6.3 x10*3/uL (2.0-8.3); Neutrophils Percent Auto 58.6 % (45-73); Platelet Count 318 X10*3/uL (160-400); Red Blood Count 4.94 X10*6/uL (4.60-5.80); Red Cell Distribution Width 12.9 % (11.0-16.0); White Blood Count 10.7 X10*3/uL (4.8-10.8)
[2024-12-18 13:47] LABS: Estimated Average Glucose 111 mg/dL; Hemoglobin A1C 151.7273 umol/L; Hemoglobin A1c % 5.5 % (<6.0)
[2024-12-18 14:21] LABS: Alanine Aminotransferase 15 U/L (0-40); Albumin Level 4.4 g/dL (3.5-5.0); Alkaline Phosphatase 85 U/L (39-117); Anion Gap 14 (12-20); Aspartate Amino Transferase 35 U/L (5-37); Bilirubin Total 0.7 mg/dL (0.0-1.0); Blood Urea Nitrogen 19 mg/dL (9-16); Calcium 9.9 mg/dL (8.4-10.2); Carbon Dioxide 27 mmol/L (22-29); Chloride 104 mmol/L (96-108); Cholesterol 139 mg/dL (<200); Estimated Glomerular Filt Rate 51; Glucose Fasting 103 mg/dL (60-99); HDL Cholesterol 43 mg/dL (>40); LDL Cholesterol Calculated 68 mg/dL (<100); Potassium 4.5 mmol/L (3.3-5.1); Sodium 140 mmol/L (135-145); Total Protein 8.1 g/dL (6.5-8.0); Triglycerides 141 mg/dL (<150)
[2024-12-18 14:26] LABS: TSH reflex Free T4 1.27 uIU/mL (0.32-4.0); Vitamin D 25-OH Total 31.4 ng/mL (>30)
[2024-12-18 16:36] LABS: Appearance Urine Clear; Color Urine Yellow; Glucose Urine UA Negative (Negative); Leukocyte Esterase Urine Negative (Negative); Nitrite Urine Negative (Negative); Urine Blood Negative (Negative); Urine Ketones Negative (Negative); Urine Protein Negative (Neg-Trace)
== END 2024-12-18 09:36 | disposition home or self-care (01) ==
LOC: HO.HMGCLDS 09:35
PROVIDERS: PCP Internal Medicine; Visit Provider Internal Medicine
DX: E78.00 Pure hypercholesterolemia, unspecified (principal); R30.0 Dysuria; E55.9 Vitamin D deficiency, unspecified; R73.01 Impaired fasting glucose; D64.9 Anemia, unspecified
CPT/HCPCS: 36415; 80053; 80061; 81003; 82306; 83036; 84443; 85025

== ENCOUNTER 2025-01-13 12:35 | Outpatient (AMB) | payer MEDICARE, SELFPAY ==
[2025-01-13 12:54] VITALS: BP 124/70; PULSE 91; O2SAT 93; BMI 31.3
--- NOTE | 2025-01-13 12:54 | MHC.OFFVIS ---
Vital Signs 01/13/25 12:54 Height 5 ft 9 in Weight 212 lb BMI 31.3 BP 124/70 Blood Pressure Location Rt brachial Position Sitting Pulse 91 Pulse Source Pulse Oximeter Pulse Oximetry (%) 93 Oxygen Delivery Method Room Air Intake Visit Reasons: Asthma/COPD Allergies Statins Adverse Reaction (Intermediate, Uncoded 03/13/24 16:32) Unknown HPI HPI Asthma/COPD: Details: 79-year-old gentleman, former 30+ pack-year smoker, quit 1998 referred for evaluation wheezing and COPD. Patient states that approximately 3 months prior he developed nocturnal wheezing. He has been tried on PPI and albuterol MDI with no significant symptomatic response. Approximately 6 weeks prior he was started by his primary care provider on Flovent with resolution of his symptoms before this appointment. Patient states that he was not able to tolerate to use Flovent further than few weeks as he developedodynophagia despite rinsing his mouth after using Flovent. So his stopped using his inhaled corticosteroid, however his wheezing has not recurred. Patient does have a remote pulmonary function testing from years prior showing underlying moderate COPD. He denies family history of lung disease. After the last office visit patient continued on Breo and albuterol with good control of his underlying asthma symptoms. He did have CT chest to monitor underlying thoracic aortic aneurysm in September that showed stable pleural plaque. Today his complain of nonproductive cough ongoing for several months. [facility] Medical History Obesity (BMI 30-39.9) GERD without esophagitis Lumbar degenerative disc disease Primary osteoarthritis of knees, bilateral Pseudogout Chronic obstructive pulmonary disease (COPD) Pure hypercholesterolemia Benign essential hypertension Essential hypertension Atherosclerotic cardiovascular disease Ascending aortic aneurysm Surgical History History of esophagogastroduodenoscopy (EGD) Hx of colonoscopy (~02/20/19) History of laminectomy (~2007) S/P arthroscopy of knee (~2014) History of coronary artery bypass graft x 3 (~1998) Family History Father Myocardial infarction Mother No problems noted. Social History Household Members: Spouse Housing: Condominium Alcohol intake: current Alcohol intake frequency: does not drink Patient Tobacco Use Status: Former Tobacco user e-Cigarette/Vaping Use: Never Used Second Hand Smoke Exposure: No service: Yes ([employer]) Current occupational status: retired Cognitive needs: No Hearing needs: No Vision needs: Yes Review of Systems Const Denies daytime sleepiness, Denies excessive sweating, Denies fatigue, Denies fever(s), Denies lethargy, Denies malaise, Denies night sweats, Denies snoring and Denies weight loss Eyes Denies blurry vision and Denies itchy eyes ENT Denies nasal congestion, Denies post nasal drip, Denies sinus pain, Denies sinus pressure and Denies other ( Thrush) Card Denies chest pain, Denies pedal edema, Denies dyspnea, Denies orthopnea and Denies paroxysmal nocturnal dyspnea Resp Reports cough, Denies hemoptysis, Denies excessive phlegm production, Denies dyspnea, Denies snoring and Denies wheezing GI Denies abdominal pain and Denies heartburn Musc Denies myalgias, Denies arthralgias and Denies joint swelling Skin/Breast Denies rash Neuro Denies memory loss and Denies seizure-like activity Psych Denies abnormal sleep pattern, Denies anxiety and Denies memory loss Endo Denies excessive sweating, Denies fatigue and Denies heat intolerance Khris/Lymph Denies easy bruising Aller/Immun Denies itchy eyes, Denies seasonal rhinorrhea and Denies wheezing Physical Exam Vital Signs: Last Vital Signs Pulse 91 01/13/25 12:54 BP 124/70 01/13/25 12:54 Pulse Ox 93 01/13/25 12:54 Oxygen Delivery Method Room Air 01/13/25 12:54 BMI result Body Mass Index 31.3 Const General: no acute distress and alert Nutritional Appearance: not obese Orientation/consciousness: Other orientation findings ( oriented) HEENT Head: Yes atraumatic Eyes General: appearance normal, both eyes and all related structures Sclerae: sclerae normal EOM: EOMs intact bilaterally Neck Neck: Yes supple Lymphatic: no lymphadenopathy noted Resp Effort & Inspection: normal respiratory effort and no use of accessory muscles Auscultation: clear to auscultation bilaterally Cardio Rate: regular rate Rhythm: regular rhythm Heart sounds: no gallops, no murmurs and no rubs Skin General skin exam: other ( warm) Extrem General: No clubbing, No cyanosis and No edema Assessment & Plan Assessment & Plan (1) Asthma-COPD overlap syndrome: Code(s): J44.9 - Chronic obstructive pulmonary disease, unspecified Category: Medical Plan: Baseline controlled on Breo and albuterol MDI. Continue current regimen. (2) Pleural thickening: Code(s): J92.9 - Pleural plaque without asbestos Category: Medical Plan: Results of follow-up CT scan from September of 2024 reviewed and shows stable findings. Continue to monitor with imaging. (3) Cough: Code(s): R05.9 - Cough, unspecified Category: Medical Plan: Now with nonproductive cough over several months' duration. Will treat with prednisone and azithromycin. Medications: New prednisone 40 mg (2 x 20 mg) PO DAILY 10 tabs 0RF azithromycin For 250 mg dose pack: take 500 mg today (day 1), then 250 mg for 4 days (days 2-5) PO 6 tabs 0RF Coding Level of Care Code Est Pt Level 4 (00610) Complex EM visit Add On G2211 Diagnoses Asthma-COPD overlap syndrome J44.9 Pleural thickening J92.9 Cough R05.9
--- OUTSIDE RECORDS SUMMARY | 2025-01-13 13:19 | XMS_ITS | Patient Health Record ---
Author Organization [facility] Deepak blanco Billing Info Address [address] [place] [id number] Care Team Providers Care Rack Room Worker Name Role Phone Nahum Corona Primary Care Provider Laureano rosario ANASTASIA EDMONDS Unavailable [phone] Becca Bentley Unavailable Unavailable Allergies Allergen (clinical drug ingredient) Drug/Non Drug Allergy documented on EMR Reaction Allergy Type Onset Date Status angiotensin-converti ng enzyme inhibitor (FN) MELIDA-I (uncoded) cough Allergy Active atorvastatin Atorvastatin Calcium itching Drug Allergy Active ezetimibe Ezetimibe Unknown Drug Allergy Active rosuvastatin Rosuvastatin Calcium itching/nausea Drug Allergy Active Results Component Value Reference Range Notes EKG (72023) (MidMark-MMIQECQ ) IH Reviewed date: Interpretation: Performing Lab: Notes/Report: Heart Rate 75 Systolic Blood Pressure 0 Diastolic Blood Pressure 0 NM Interval 232 QT Interval 378 QTc Interval 0 QRS Duration 115 PWave Sherwood 12 QrsWave Sherwood -15 TWave Sherwood -20 Mean Heart Rate 0 Diastolic Blood Pressure 0 Systolic Blood Pressure 0 MeanRR Interval 0 MinRR Interval 0 MaxRR Interval 0 NumBeats 0 Reason For Referral No Information Medications Medication [...] 400 MG as directed Orally qd Active Aspir-81 81 MG 1 tablet Orally Once a day Active Immunizations Vaccine Route Administration Date Status Comme nts PNEUMOCOCCAL - 23 POLY (PNEUMOVAX 23) IM Intramuscular 03/31/2020 Administered [id number]-0006-49 37-0 1 PNEUMOCOCCAL 13 CONJ ([id number]) Unknown 04/21/2016 Pending PNEUMOCOCCAL 13 CONJ ([id number]) Unknown 04/21/2016 Administered FLU (Past vaccine of unknown type) Unknown 03/23/2018 Administered FLU (Past vaccine of unknown type) Unknown 03/14/2019 [facility] FLU (Past vaccine of unknown type) Unknown 02/05/2021 Administered zFLU 4V (FLUZONE QUAD), 3 YRS+, NO PRES - ALL PAYORS Unknown 10/10/2017 Refused zFLU 4V (FLUZONE HIGH DOSE QUAD), 65yrs+, NO PRES - ALL PAYORS Unknown 03/02/2020 Administered zCOVID-19 (Moderna) 12+yrs, NO PRES Unknown 08/24/2020 Administered [facility] Social History Tobacco Use: Social History Observation Description Date Details (start date - stop date) Former Smoker NA - NA Tobacco Status: Question Answer Notes Patient is a former smoker non tobacco user Problems Problem Type SNOMED Code ICD Code Onset Dates Problem Status W/U Status Risk Notes Problem 958964457 Mixed hyperlipidemia (E78.2) Active confirmed Problem 07422612 Other chronic pa in (G89.29) Active confirmed Problem Angina co-occurrent and due to coronary arteriosclerosis (disorder) (18297121487171554) 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) Active confirmed Problem 809975387 Ischemic cardiomyopathy (I25.5) Active confirmed Problem 32016645 Chronic cough (R05.3) Active confirmed Problem 990937831 Other specified cough (R05.8) Active confirmed Problem 53912612 Essential hypertension (I10) Active confirmed Problem 141042117 Dyslipidemia (E78.5) Active confirmed Problem 119541925 Primary osteoarthritis of both knees (M17.0) Active confirmed Problem 095667496 Primary osteoarthritis of left knee (M17.12) Active confirmed Problem Aortic aneurysm (20843430) Aortic aneurysm (I71.9) Active confirmed Problem 88252930 Chronic cystitis (N30.20) Active confirmed Problem 919057232 Abnormal ECG (R94.31) Active confirmed Problem 534220301 Intermittent palpitations (R00.2) Active confirmed Problem 24224289 Muscle spasm (M62.838) Active confirmed Problem 42022765690099756 Pain of right sacroiliac joint (M53.3) Active confirmed Problem 16171407 Acute pain of le ft knee (M25.562) Active confirmed Problem 441135643 Ascending aortic aneurysm (I71.2) Active confirmed Problem 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) Active confirmed [place], [place] Problem 449377775 Gastroesophageal reflux disease without esophagitis (K21.9) Active confirmed Problem 901514135 Somatic dysfunction of spine, lumbar (M99.03) Active confirmed Problem 977568776 Wellness examination (Z00.00) Active confirmed Problem 7129372050592 Coronary artery disease involving [place] coronary artery of [place] heart without angina pectoris (I25.10) Active confirmed Problem 72434731 Gout, unspecifie d cause, unspecified chronicity, unspecified site (M10.9) Active confirmed Problem 929810842 Degenerative tea r of left medial meniscus (M23.204) Active confirmed Problem 115759657 Chronic low back pain without sciatica, unspecified back pain laterality (M54.5) Active confirmed Problem 459778498 Pseudogout (M11.20) Active confirmed Problem 988073611 Right lower lobe pulmonary nodule (R91.1) Active confirmed Problem 575857818 HFrEF (heart failure with reduced ejection fraction) (I50.20) Active confirmed Problem 030473964 Aneurysm of ascending aorta without rupture (I71.21) Active confirmed Vital Signs Heart Rate 81 /min 10/24/2024 Respiratory Rate 17 /min 10/24/2024 Oximetry 94 10/24/2024 Blood pressure diastolic 70 mm Hg 04/16/2024 Height 69 in 10/24/2024 Blood pressure systolic 150 mm Hg 04/16/2024 Weight 216.4 lbs 10/24/2024 BMI 31.95 kg/m2 10/24/2024 Encounters Encounter Location Date Provider Diagnosis [id number] [address] [place], [place] [id number] 08/28/2024 ANASTASIA EDMONDS [id number] [address] [place], [place] [id number] 10/11/2024 ANASTASIA EDMONDS [id number] [address] [place] [id number] 10/31/2024 ANASTASIA EDMONDS [id number] [address] [place] [address] [id number] 04/16/2024 ANASTASIA EDMONDS Bradycardia R00.1 ; Aneurysm of ascending aorta without rupture I71.21 ; Atherosclerotic heart disease of [place]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 I25.118 ; Intermittent palpitations R00.2 ; Essential hypertension I10 ; Mixed hyperlipidemia E78.2 ; Ischemic cardiomyopathy I25.5 ; History of coronary artery bypass graft x 3 Z95.1 and GERD without esophagitis K21.[id number] [place] [id number] 10/15/2024 ANASTASIA EDMONDS Essential hypertensi on I10 ; Bradycardia R00.1 ; Aneurysm of ascending aorta without rupture I71.21 ; Atherosclerotic heart disease of [place]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 10/24/2024 Essential hypertension (ICD-10 - I10) His blood pressure is still above systolic goal of less than 130 mm of Hg. Continue off of amlodipine for now but may need to start back 5 mg once a day if losartan is not adequate for controlling his blood pressures at home. 04/16/2024 Bradycardia (ICD-10 - R00.1) Currently asymptomatic. Monitor. 04/16/2024 Atherosclerotic heart disease of [place] coronary artery with other forms of angina [...] therapy with baby aspirin and simvastatin 10/24/2024 Bradycardia (ICD-10 - R00.1) Historically asymptomatic, normal in the office today 10/15/2024 Bradycardia (ICD-10 - R00.1) Currently asymptomatic. Monitor. 04/16/2024 Aneurysm of ascending aorta without rupture (ICD-10 [...] This was discussed with the patient. 10/15/2024 Aneurysm of ascending aorta without rupture [...] needed. This was discussed with the patient. 10/24/2024 Aneurysm of ascending aorta without rupture (ICD-10 - I71.21) He has a known history of ascending aortic aneurysm Measuring a stable 4.7 cm as of September 2024. He will need yearly CTAs. 04/16/2024 Intermittent palpitations (ICD-10 - R00.2) Currently asymptomatic, we will continue to monitor. 04/16/2024 Essential hypertension (ICD-10 - I10) His blood pressure is still above systolic goal of less than 130 mm of Hg. We will increase amlodipine dosing which should optimize his blood pressure control. 10/24/2024 Atherosclerotic heart disease of [place] coronary artery with other forms of angina [...] therapy with baby aspirin and simvastatin 10/15/2024 Atherosclerotic heart disease of [place] coronary artery with other forms of angina [...] simvastatin 10/15/2024 Intermittent palpitations (ICD-10 - R00.2) 10/24/2024 Intermittent palpitations (ICD-10 - R00.2) 04/16/2024 Mixed hyperlipidemia (ICD-10 - E78.2) Continue simvastatin as above. 04/16/2024 Ischemic cardiomyopathy (ICD-10 - I25.5) 10/24/2024 Mixed hyperlipidemia (ICD-10 - E78.2) cut simvastatin half to 40 mg 10/15/2024 Mixed hyperlipidemia (ICD-10 - E78.2) Thank you for including me in the care of your patient! 10/15/2024 Ischemic cardiomyopathy (ICD-10 - I25.5) 10/24/2024 Ischemic cardiomyopathy (ICD-10 - I25.5) 04/16/2024 History of coronary artery bypass graft x 3 (ICD-10 - Z95.1) [address] 04/16/2024 GERD without esophagitis (ICD-10 - K21.9) 10/24/2024 History of coronary artery bypass graft x 3 (ICD-10 - Z95.1) [address] 10/15/2024 History of coronary artery bypass graft x 3 (ICD-10 - Z95.1) 1998, [place], [place] 10/15/2024 GERD without esophagitis (ICD-10 - K21.9) 10/24/2024 GERD without esophagitis (ICD-10 - K21.9) 10/24/2024 Other thank you for including me in the care of your patient! Plan Of Treatment Pending Test Test Name Order Date BASIC METABOLIC PANEL (BMP)MEDICARE 8004 8 05/31/2022 EKG (81818) (MidMark-MMIQECQ) IH 021 Echocardiogram 05/31/2022 Echocardiogram 11/03/2020 BASIC METABOLIC (THI) 03/11/2022 CXR 2 VIEWS (60764) IH 04/13/2021 CT- CTA CHEST AORTA (48682) (CNFL-CTACHE STAO) 04/13/2021 CT- CTA CHEST AORTA (08622) (CNFL-CTACHE STAO) 05/31/2022 Future Test Test Name Order Date LIPID PANEL (THI) 11/24/2020 LIPID PANEL (THI) 05/10/2021 NM- NUCLEAR TREADMILL STRESS TEST (79977, A9500, 24981)(ScImage-SONMTMSTRES) 09/21/2023 CT- CTA CHEST W/ CONTRAST (37208)(LARG-C TCTACHEST) 11/16/2023 COMPREHENSIVE METABOLIC PANEL(Q-60023) 1 URINALYSIS, COMPLETE W/REFLEX TO CULTURE (Q-3020) 04/16/2024 PSA (FREE AND TOTAL) (Q-46160) 4 TSH W/REFLEX TO FT4 (Q-77779) 04/16/2024 HEMOGLOBIN A1c (Q-496) 04/16/2024 CBC (INCLUDES DIFF/PLT)(Q-6399) 04/16/20 LIPID PANEL, STANDARD (Q-0500) 4 Next Appt Details Provider Name:ANASTASIA EDMONDS , 05/06/2025 08:30:00 AM, [address], [place], [place], [id number], Insurance Providers Payer Name Payer Address Payer Phone Subscriber Number Group Number Insured Name Patient Relationship to Insured Coverage Start Date Coverage End Date MEDICARE [place] PART B [address] [facility] JOSE, FANI [id number] Abdirashid Barreto Self - patient is the insured 8 8 [facility] PREFERRED [address] [place], [place] [id number] Abdirashid Barreto Self - patient is the insured 9 9 Medical (General) History Medical History History ICD Code CABGS 1998, [place], [place]-for abn stres s test and angina Ascending aortic aneurysm measuring 4.7 cm in 2019 Hypertension I10 Hyperlipemia E78.5 Gout PVCs Right lower lobe nodule stable on CT sca n GERD without esophagitis K21.9 Surgical History Surgery Date(Month/Year) Cath Right eye cataract surgery 11/2016 left cataract lens implant 2015 knee 2014 back 2005 back 1980s abdominal hernia repair 2011 CABG x 3 vessels 1998 Hospitalization History Reason Date(Month/Year) [facility] 02/2021 see sx hx colonoscopy chest pain right knee pain, [place] 10-09-17 BACK PAIN, [facility] cad/cabg 1998
--- OUTSIDE RECORDS SUMMARY | 2025-01-13 13:19 | XMS_ITS | Patient Health Record ---
Author Organization [facility] Melissa Velez Address [address] [place], [place] [id number] Care Team Providers Care Chart Calculator Name Role Phone VegaFrancisco menchaca Primary Care Provider Lito Marinelli Unavailable [phone] Reason For Referral No Information Medications Medication SIG (Take, Route, Frequency, Duration) Notes Start Date End Date Status Atenolol 50 MG 1 tablet Orally Once a day; Duration: 30 day(s) Active Aspirin 81 MG 1 tablet Orally Once a day; Duration: 30 day(s) Active Advair Diskus 250-50 MCG/DOSE 1 puff Inhalation PRN Active Naproxen 500 MG 1 tablet as needed O rally every 12 hrs Active Simvastatin 80 MG 1 tablet in the even ing Orally Once a day; Duration: 30 day(s) Active Lisinopril 30 MG 1 tablet Orally Once a day; Duration: 30 day(s) Active Problems Problem Type SNOMED Code ICD Code Onset Dates Problem Status W/U Status Risk Notes Problem Urinary tract infectious disease (72034193) Urinary tract infection, site not specified (N39.0) Active confirmed Plan Of Treatment Pending Test Test Name Order Date CYSTOSCOPY 10/20/2016 BLADDER SCAN 09/05/2016 Future Test Test Name Order Date CT Scan : Stone protocol 09/08/2016 CYSTOSCOPY 09/12/2016 Insurance Providers Payer Name Payer Address Payer Phone Subscriber Number Group Number Insured Name Patient Relationship to Insured Coverage Start Date Coverage End Date [facility] Service Options Part B claims [address] [place] [id number] RAQUEL SANFORD Self - patient is the insured [facility] [employer] Plan [address] [place] [address] [phone] [id number] RAQUEL SANFORD Self - patient is the insured Medical (General) History Medical History History ICD Code Heart attack Hypertension Surgical History Surgery Date(Month/Year) Tonsils 1953 Triple bypass 1998 Hernia 2009 Right eye-cataract 10/2016
--- OUTSIDE RECORDS SUMMARY | 2025-01-13 13:19 | XMS_ITS | Patient Health Record ---
Author Organization [facility] Address [address] [place] [address] Care Team Providers Care Protective Services Social Worker Name Role Phone Morteza Viera M.D. Primary Care Provider Estefania radha Alcaraz Jr Wilfrido Unavailable [phone] Allergies Allergen (clinical drug ingredient) Drug/Non Drug [...] Problem Status W/U Status Risk Notes Problem 367716047 Colon cancer screening (Z12.11) Active confirmed Problem 380644883 group home current use of non-steroidal anti-inflammato bernarda (NSAID) (Z79.1) Active confirmed Plan Of Treatment Future Test Test Name Order Date COLONOSCOPY 12/05/2018 Insurance Providers Payer Name Payer Address Payer Phone Subscriber Number Group Number Insured Name Patient Relationship to Insured Coverage Start Date Coverage End Date MEDICARE OF [place] [address] [place] [address] [id number] RAQUEL SANFORD Self - patient is the insured [facility](N o referral needed) [address] [place] [address] [id number] RAQUEL SANFORD Self - patient is the insured Medical (General) History Medical History History ICD Code coronary artery disease [place] 1998 mini stroke hypertension elevated cholesterol pseudogout Surgical History Surgery Date(Month/Year) back surgery 1988,2004 cataract-lens implants both eyes 2016 right knee arthroscopy 2015 CABG x3 1999
== END 2025-01-13 14:49 | disposition home or self-care (01) ==
LOC: HO.HPS 12:36
PROVIDERS: PCP Internal Medicine; Visit Provider Internal Medicine Pulmonary Disease
DX: J44.9 Chronic obstructive pulmonary disease, unspecified (principal); J92.9 Pleural plaque without asbestos; R05.9 Cough, unspecified
CPT/HCPCS: 99214; G2211

== ENCOUNTER → 2025-01-13 12:35 | Outpatient (BNVA) | payer MEDICARE, SELFPAY | PROVIDERS: PCP Internal Medicine; Visit Provider Internal Medicine Pulmonary Disease | DX: J44.9 Chronic obstructive pulmonary disease, unspecified (principal); J92.9 Pleural plaque without asbestos; R05.9 Cough, unspecified; Z87.891 Personal history of nicotine dependence | CPT/HCPCS: 99212 ==

== ENCOUNTER 2025-01-14 07:58 | Outpatient (AMB) | payer MEDICARE, SELFPAY ==
--- OUTSIDE RECORDS SUMMARY | 2025-01-14 08:02 | XMS_ITS | Patient Health Record ---
Author Organization [facility]rology Melissa Velez Address [address] [place], [place] [id number] Care Team Providers Care Public Address Announcer Name Role Phone VegaFrancisco menchaca Primary Care Provider Lito Marinelli Unavailable [phone] Reason For Referral No Information Medications Medication [...] Risk Notes Problem Urinary tract infectious disease (55759045) Urinary tract infection, site not specified (N39.0) Active confirmed Plan Of Treatment Pending Test Test Name Order Date CYSTOSCOPY 10/20/2016 BLADDER SCAN 09/05/2016 Future Test Test Name Order Date CT Scan : Stone protocol 09/08/2016 CYSTOSCOPY 09/12/2016 Insurance Providers Payer Name Payer Address Payer Phone Subscriber Number Group Number Insured Name Patient Relationship to Insured Coverage Start Date Coverage End Date [facility] Service Options Part B claims [address] [place] [id number] RAQUEL SANFORD Self - patient is the insured [facility] [employer] Plan [address] [place] [address] [id number] RAQUEL SANFORD Self - patient is the insured Medical (General) History Medical History History ICD Code Heart attack Hypertension Surgical History Surgery Date(Month/Year) Tonsils 1953 Triple bypass 1998 Hernia 2009 Right eye-cataract 10/2016
--- OUTSIDE RECORDS SUMMARY | 2025-01-14 08:02 | XMS_ITS | Patient Health Record ---
Author Organization [facility] Deepak blanco Billing Info Address [address] [place] [address] Care Team Providers Care Asphalt Mixer Name Role Phone Nahum Corona Primary Care Provider Laureano rosario ANASTASIA EDMONDS Unavailable [phone] Becca Bentley Unavailable Unavailable Allergies Allergen (clinical drug ingredient) Drug/Non Drug Allergy documented on EMR Reaction Allergy Type Onset Date Status angiotensin-converti ng enzyme inhibitor (FN) MELIDA-I (uncoded) cough Allergy Active atorvastatin Atorvastatin Calcium itching Drug Allergy Active ezetimibe Ezetimibe Unknown Drug Allergy Active rosuvastatin Rosuvastatin Calcium itching/nausea Drug Allergy Active Results Component Value Reference Range Notes EKG (95506) (MidMark-MMIQECQ ) IH Reviewed date: Interpretation: Performing Lab: Notes/Report: Heart Rate 75 Systolic Blood Pressure 0 Diastolic Blood Pressure 0 VT Interval 232 QT Interval 378 QTc Interval 0 QRS Duration 115 PWave [place] 12 QrsWave [place] -15 TWave [place] -20 Mean Heart Rate 0 Diastolic Blood [...] Administered [id number]-0006-49 37-0 1 PNEUMOCOCCAL 13 CONJ ([id number]) Unknown 04/21/2016 Pending PNEUMOCOCCAL 13 CONJ ([id number]) Unknown 04/21/2016 Administered FLU (Past vaccine of [...] Problem Status W/U Status Risk Notes Problem 800052592 Mixed hyperlipidemia (E78.2) Active confirmed Problem 90203514 Other chronic pa in (G89.29) Active confirmed Problem Angina co-occurrent and due to coronary arteriosclerosis (disorder) (94573854195997602) 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) Active confirmed Problem 447178752 Ischemic cardiomyopathy (I25.5) Active confirmed Problem 19086937 Chronic cough (R05.3) Active confirmed Problem 129094957 Other specified cough (R05.8) Active confirmed Problem 22902036 Essential hypertension (I10) Active confirmed Problem 183733838 Dyslipidemia (E78.5) Active confirmed Problem 193592240 Primary osteoarthritis of both knees (M17.0) Active confirmed Problem 363776343 Primary osteoarthritis of left knee (M17.12) Active confirmed Problem Aortic aneurysm (91477548) Aortic aneurysm (I71.9) Active confirmed Problem 08556000 Chronic cystitis (N30.20) Active confirmed Problem 167647028 Abnormal ECG (R94.31) Active confirmed Problem 246584128 Intermittent palpitations (R00.2) Active confirmed Problem 35854584 Muscle spasm (M62.838) Active confirmed Problem 60510215152637050 Pain of right sacroiliac joint (M53.3) Active confirmed Problem 27470810 Acute pain of le ft knee (M25.562) Active confirmed Problem 652160084 Ascending aortic aneurysm (I71.2) Active confirmed Problem History of coronary artery bypass grafting (271144314) 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) Active confirmed [facility], [place] Problem 801331825 Gastroesophageal reflux disease without esophagitis (K21.9) Active confirmed Problem 285768185 Somatic dysfunction of spine, lumbar (M99.03) Active confirmed Problem 375081935 Wellness examination (Z00.00) Active confirmed Problem 5239713056310 Coronary artery disease involving [place] coronary artery of [place] heart without angina pectoris (I25.10) Active confirmed Problem 67546191 Gout, unspecifie d cause, unspecified chronicity, unspecified site (M10.9) Active confirmed Problem 285160243 Degenerative tea r of left medial meniscus (M23.204) Active confirmed Problem 253557166 Chronic low back pain without sciatica, unspecified back pain laterality (M54.5) Active confirmed Problem 365971728 Pseudogout (M11.20) Active confirmed Problem 350839524 Right lower lobe pulmonary nodule (R91.1) Active confirmed Problem 330945098 HFrEF (heart failure with reduced ejection fraction) (I50.20) Active confirmed Problem 722275524 Aneurysm of ascending aorta without rupture (I71.21) Active confirmed Vital Signs Heart Rate 81 /min 10/24/2024 Respiratory Rate 17 /min 10/24/2024 Oximetry 94 10/24/2024 Blood pressure diastolic 70 mm Hg 04/16/2024 Height 69 in 10/24/2024 Blood pressure systolic 150 mm Hg 04/16/2024 Weight 216.4 lbs 10/24/2024 BMI 31.95 kg/m2 10/24/2024 Encounters Encounter Location Date Provider Diagnosis [id number] [address] [place], [place] [id number] 08/28/2024 ANASTASIA EDMONDS [id number] [address] [place] [id number] 10/11/2024 ANASTASIA EDMONDS [id number] [address] [place] [address] [id number] 10/31/2024 ANASTASIA EDMONDS [id number] [address] [place] [id number] 04/16/2024 ANASTASIA EDMONDS Bradycardia R00.1 ; Aneurysm of ascending aorta without rupture I71.21 ; Atherosclerotic heart disease of [place]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 I25.118 ; Intermittent palpitations R00.2 ; Essential hypertension I10 ; Mixed hyperlipidemia E78.2 ; Ischemic cardiomyopathy I25.5 ; History of coronary artery bypass graft x 3 Z95.1 and GERD without esophagitis K21.[id number] [place] [id number] 10/15/2024 ANASTASIA EDMONDS Essential hypertensi on I10 ; Bradycardia R00.1 ; Aneurysm of ascending aorta without rupture I71.21 ; Atherosclerotic heart disease of [place]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 I25.118 ; Intermittent palpitations R00.2 ; Mixed hyperlipidemia E78.2 ; Ischemic cardiomyopathy I25.5 ; History of coronary artery bypass graft x 3 Z95.1 and GERD without esophagitis K21.[id number] [place] [id number] 10/24/2024 ANASTASIA EDMONDS Essential hypertensi on I10 ; Bradycardia R00.1 ; Aneurysm of ascending aorta without rupture I71.21 ; Atherosclerotic heart disease of [place] coronary artery with other forms of angina [...] asymptomatic. Monitor. 04/16/2024 Atherosclerotic heart disease of [place] coronary artery with other forms of angina [...] pressure control. 10/24/2024 Atherosclerotic heart disease of [place] coronary artery with other forms of angina [...] and simvastatin 10/15/2024 Atherosclerotic heart disease of [place] coronary artery with other forms of angina [...] bypass graft x 3 (ICD-10 - Z95.1) 1998 [place] 04/16/2024 GERD without esophagitis (ICD-10 - K21.9) 10/24/2024 History of coronary artery bypass graft x 3 (ICD-10 - Z95.1) 1998 [place] 10/15/2024 History of coronary artery bypass graft x 3 (ICD-10 - Z95.1) 1998, [place] 10/15/2024 GERD without esophagitis (ICD-10 - K21.9) 10/24/2024 GERD without esophagitis (ICD-10 - K21.9) 10/24/2024 Other thank you for including me in the care of your patient! Plan Of Treatment Pending Test Test Name Order Date BASIC METABOLIC PANEL (BMP)MEDICARE [id number] 8 05/31/2022 EKG (11025) (MidMark-MMIQECQ) IH 021 Echocardiogram 05/31/2022 Echocardiogram 11/03/2020 BASIC METABOLIC (THI) 03/11/2022 CXR 2 VIEWS (65621) IH 04/13/2021 CT- CTA CHEST AORTA (30372) (CNFL-CTACHE STAO) 04/13/2021 CT- CTA CHEST AORTA (14998) (CNFL-CTACHE STAO) 05/31/2022 Future Test Test Name Order Date LIPID PANEL (THI) 11/24/2020 LIPID PANEL (THI) 05/10/2021 NM- NUCLEAR TREADMILL STRESS TEST (44425, A9500, 11830)(ScImage-SONMTMSTRES) 09/21/2023 CT- CTA CHEST W/ CONTRAST (39436)(LARG-C TCTACHEST) 11/16/2023 COMPREHENSIVE METABOLIC PANEL(Q-81382) 1 URINALYSIS, COMPLETE W/REFLEX TO CULTURE (Q-3020) 04/16/2024 PSA (FREE AND TOTAL) (Q-85771) 4 TSH W/REFLEX TO FT4 (Q-15442) 04/16/2024 HEMOGLOBIN A1c (Q-496) 04/16/2024 CBC (INCLUDES DIFF/PLT)(Q-6399) 04/16/20 24 LIPID PANEL, STANDARD (Q-7600) 4 Next Appt Details Provider Name:ANASTASIA EDMONDS , 05/06/2025 08:30:00 AM, [address], [address], [place], [place], [id number], Insurance Providers Payer Name Payer Address Payer Phone Subscriber Number Group Number Insured Name Patient Relationship to Insured Coverage Start Date Coverage End Date MEDICARE [place] PART B [address] [facility] GARCIA [id number] Estevan Abdirashid Self - patient is the insured 8 8 [facility] [address] [place], [place] [id number] Abdirashid Barreto Self - patient is the insured 9 9 Medical (General) History Medical History History ICD Code CABGS 1998, [place]for abn stres s test and angina Ascending aortic aneurysm measuring 4.7 cm in 2019 Hypertension I10 Hyperlipemia E78.5 Gout PVCs Right lower lobe nodule stable on CT sca n GERD without esophagitis K21.9 Surgical History Surgery Date(Month/Year) Cath Right eye cataract surgery 11/2016 left cataract lens implant 2014 knee 2013 back 2005 back abdominal hernia repair 2011 CABG x 3 vessels 1998 Hospitalization History Reason Date(Month/Year) [facility] 02/2021 see sx hx colonoscopy chest pain right knee pain, [place] 10-09-17 BACK PAIN, [place] cad/cabg 1998
--- OUTSIDE RECORDS SUMMARY | 2025-01-14 08:02 | XMS_ITS | Patient Health Record ---
Author Organization [facility] Address [address] [place] [address] Care Team Providers Care Hazard Waste Handler Name Role Phone Morteza Viera M.D. Primary [...] Problem Status W/U Status Risk Notes Problem 578517572 Colon cancer screening (Z12.11) Active confirmed Problem 066289560 care home current use of non-steroidal anti-inflammato bernarda (NSAID) (Z79.1) Active confirmed Plan Of Treatment Future Test Test Name Order Date COLONOSCOPY 12/05/2018 Insurance Providers Payer Name Payer Address Payer Phone Subscriber Number Group Number Insured Name Patient Relationship to Insured Coverage Start Date Coverage End Date MEDICARE OF [place] [address] [place] [address] [id number] RAQUEL SANFORD Self - patient is the insured [facility](N o referral needed) [address] [place] [address] [id number] RAQUEL SANFORD Self - patient is the insured Medical (General) History Medical History History ICD Code coronary artery disease [place] 1998 mini stroke hypertension elevated cholesterol pseudogout Surgical History Surgery Date(Month/Year) back surgery 1988,2004 cataract-lens implants both eyes 2016 right knee arthroscopy 2015 CABG x3 1999
--- NOTE | 2025-01-14 08:20 | A.OFFVIS_ITS ---
Vital Signs 01/14/25 08:21 Height 5 ft 9 in Weight 211 lb 10.3 oz BMI 31.3 BP 118/60 Blood Pressure Location Lt brachial Position Sitting Pulse 80 Pulse Source Monitor Intake Visit Reasons: 1 yr follow up Allergies Statins Adverse Reaction (Intermediate, Uncoded 03/13/24 16:32) Unknown Medication List - Last Reviewed 01/14/25 by Aury Cherry albuterol sulfate 90 mcg/actuation 2 puffs inhalation Q6H PRN amlodipine 10 mg PO DAILY aspirin 81 mg PO DAILY azithromycin For 250 mg dose pack: take 500 mg today (day 1), then 250 mg for 4 days (days 2-5) PO diclofenac sodium 3% 1 appl topical BID PRN 30 days fluticasone furoate-vilanterol 100-25 mcg/dose (Breo Ellipta) 1 inh inhalation DAILY losartan 100 mg PO DAILY magnesium oxide 400 mg PO DAILY multivitamin 1 tab PO DAILY naproxen 500 mg PO BID PRN 30 days omeprazole 40 mg PO QAM 90 days prednisone 40 mg (2 x 20 mg) PO DAILY simvastatin 80 mg PO BEDTIME 90 days HPI Comments Details: Abdirashid is here for follow-up regarding thoracic aortic aneurysm. History of coronary disease and bypass surgery more than 20 years ago. He lives 8 months in [place] and reminder locally. He sees a commercial portfolio manager as well as cardiac surgeon in [place]. Overall, he feels fine for the most part. No specific concerns like angina. Rare dizziness but transient. [facility] Medical History Obesity (BMI 30-39.9) GERD without esophagitis Lumbar degenerative disc disease Primary osteoarthritis of knees, bilateral Pseudogout Chronic obstructive pulmonary disease (COPD) Pure hypercholesterolemia Benign essential hypertension Essential hypertension Atherosclerotic cardiovascular disease Ascending aortic aneurysm Surgical History History of esophagogastroduodenoscopy (EGD) Hx of colonoscopy (~02/20/19) History of laminectomy (~2007) S/P arthroscopy of knee (~2014) History of coronary artery bypass graft x 3 (~1998) Family History Father Myocardial infarction Mother No problems noted. Social History Household Members: Spouse Housing: Condominium Alcohol intake: current Alcohol intake frequency: does not drink Patient Tobacco Use Status: Former Tobacco user e-Cigarette/Vaping Use: Never Used Second Hand Smoke Exposure: No service: Yes (Scaled Inference) Current occupational status: retired Cognitive needs: No Hearing needs: No Vision needs: Yes Review of Systems Const Denies weakness ENT Denies dizziness Card Denies chest pain, Denies chest pain with activity, Denies syncope, Denies rapid heart rate, Denies pedal edema, Denies edema, Denies leg edema, Denies lightheadedness, Denies palpitations, Denies dyspnea, Denies dyspnea on exertion and Denies orthopnea Resp Denies cough, Denies dyspnea and Denies dyspnea on exertion GI Denies hematochezia and Denies change in stool character Musc Denies abnormal gait, Denies muscle cramps, Denies muscle weakness, Denies numbness, Denies radiating pain into limb and Denies tingling Neuro Denies abnormal gait, Denies dizziness, Denies syncope, Denies numbness, Denies tingling and Denies weakness Endo Denies palpitations Physical Exam Vital Signs: Last Vital Signs Pulse 80 01/14/25 08:21 BP 118/60 01/14/25 08:21 BMI result Body Mass Index 31.3 Const General: comfortable and no acute distress Orientation/consciousness: patient oriented x3 HEENT Other: Unremarkable Head: Yes normal to inspection Neck Neck: Yes normal visual inspection Chest Chest palpation & inspection: normal inspection of the chest Resp Auscultation: clear to auscultation bilaterally Cardio Palpation: normal PMI Heart sounds: S1 normal heart sound present, S2 normal heart sound present, no gallops, Murmur heart sound present systolic I/ and at the right sternal border and no rubs GI Palpation (GI): Soft to palpation Back/Spine/Pelvis Other: unremarkable Skin General skin exam: no rashes or lesions noted Neuro General: patient oriented x3 Extrem General: Yes normal to inspection Psych Mental Status: mental status grossly normal Office Procedures EKG Details: EKG with underlying sinus rhythm at 80/Min; cannot exclude old inferior infarct or anterior infarct; PVCs. 28427-Ldlqwntlndkkibeeh, Complete Assessment & Plan Assessment & Plan (1) Ascending aortic aneurysm: Code(s): I71.2 - Thoracic aortic aneurysm, without rupture Category: Medical Qualifiers: Presence of rupture: without rupture Qualified Code(s): I71.21 - Aneurysm of the ascending aorta, without rupture Plan: In the most recent CT scan from [place], ascending aortic size 4.7/4.6 cm. Per their conclusion, unchanged compared to the previous study from 2023. CTA in [place] 2020- 4.9/4.7 cm. Aortic arch and descending aorta are unremarkable. No dissection or other pathology. Various other studies, had 4.6/4.7 cm and 4.5/4.4 cm. Overall, seems stable. No specific management as such but follow-up periodically. He gets his scans in [place]. (2) Atherosclerotic cardiovascular disease: Comment: S/P CABG in 1998 Code(s): I25.10 - Atherosclerotic heart disease of [place] coronary artery without angina pectoris Category: Medical Plan: History of bypass surgery more than 20 years ago. Uupedzyyigxpmg-Dzylmaa-36/2024-LVEF 50-55%; no wall motion abnormalities. Mild mitral regurgitation. Cardiac catheterization in [place]-10/20236125-bpnqawpjli-zgh vessel HYDRO GENERATION MANAGER-fills distally via collateral; LAD occluded in the mid section; RCA HYDRO GENERATION MANAGER; left main large without disease. RAMEY to LAD and free radial to OM patent. No other SVG. Recommended medical therapy. Clinically, no angina. Continue statins. He is on high-dose simvastatin but states that has tried numerous other statins and had many side effects. Hence no changes. LDL cholesterol seems well controlled. (3) Essential hypertension: Code(s): I10 - Essential (primary) hypertension Category: Medical Plan: On amlodipine/losartan. Plan Discussion Notes I discussed with the patient the possibility that his lightheadedness could be related to his blood pressure medication. We talked about the option of reducing the losartan dosage if symptoms persist. The patient is advised to take precautions when standing up to avoid dizziness. Patient was informed and verbally consented to the use of an ambient scribe for clinic note documentation during this visit. Patient Instructions: - Monitor blood pressure regularly. - Be cautious when changing positions to prevent dizziness. - Follow up with your [place] commercial portfolio manager as scheduled. Coding Level of Care Code Est Pt Level 4 (50501) Complex EM visit Add On G2211 Diagnoses Aneurysm of ascending aorta without rupture I71.21 Presence of rupture: without rupture Atherosclerotic cardiovascular disease I25.10 Essential hypertension I10 CPT Codes EKG - CPT: 09044-Hmadbwpbsjuuhgljo, Complete ([id number])
[2025-01-14 08:21] VITALS: BP 118/60; PULSE 80; BMI 31.3
== END 2025-01-14 08:41 | disposition home or self-care (01) ==
LOC: HO.HCS 07:59
PROVIDERS: PCP Internal Medicine; Visit Provider Internal Medicine
DX: I71.21 Aneurysm of the ascending aorta, without rupture (principal); I25.10 Atherosclerotic heart disease of native coronary artery without angina pectoris; I10 Essential (primary) hypertension
CPT/HCPCS: 93010; 99214; G2211

== ENCOUNTER → 2025-01-14 07:58 | Outpatient (BNVA) | payer MEDICARE, SELFPAY | PROVIDERS: PCP Internal Medicine; Visit Provider Internal Medicine | DX: I25.10 Atherosclerotic heart disease of native coronary artery without angina pectoris (principal); I71.21 Aneurysm of the ascending aorta, without rupture; I10 Essential (primary) hypertension | CPT/HCPCS: 93005; 99212 ==

== ENCOUNTER 2025-01-24 08:12 | Outpatient (AMB) | payer MEDICARE, SELFPAY ==
--- NOTE | 2025-01-24 08:16 | A.OFFPC_ITS ---
Vital Signs 01/24/25 08:17 Height 5 ft 9 in Weight 213 lb 8 oz BMI 31.5 BP 110/66 Blood Pressure Location Lt brachial Position Sitting Pulse 76 Pulse Source Pulse Oximeter Temp 97.1 F Temp Source Temporal Artery Scan Pulse Oximetry (%) 96 Oxygen Delivery Method Room Air Intake Visit Reasons: f/u Intake Note: Patient is here to follow up on Chronic pain syndrome, Asthma, COPD, HTN. Production Associate Required: No Cognos Consultant: Not Required per policy Accompanied by: Self / Same As Patient Allergies Statins Adverse Reaction (Intermediate, Uncoded 01/24/25 08:32) Unknown Medication List - Last Reconciled 01/24/25 by JOSE ALEJANDRO De Leon albuterol sulfate 90 mcg/actuation 2 puffs inhalation Q6H PRN amlodipine 10 mg PO DAILY aspirin 81 mg PO DAILY diclofenac sodium 3% 1 appl topical BID PRN 30 days fluticasone furoate-vilanterol 100-25 mcg/dose (Breo Ellipta) 1 inh inhalation DAILY losartan 100 mg PO DAILY magnesium oxide 400 mg PO DAILY multivitamin 1 tab PO DAILY naproxen 500 mg PO BID PRN 30 days omeprazole 40 mg PO QAM 90 days simvastatin 80 mg PO BEDTIME 90 days Tobacco use date assessed: 01/24/25 Fall risk assessment: No Falls in past year Last assessed Fall Risk: 01/24/25 Dental Screening Dental Screen Date: 01/24/25 Did you have a dental visit in the last 12 months?: Yes Did you have a dental problem in the last 6 months where you did not have access to dental care?: No Was dental information given to patient?: Patient has dentist HPI f/u HPI Details The patient is a 79-year-old male presenting For follow up appointment for chronic conditions. He is presenting with concerns about earache. The patient reports experiencing earache, which is a new problem for him. He has a history of using ear drops to manage similar symptoms in the past, which were effective. The earache is associated with impacted cerumen, which has caused irritation in the ear canal. The patient also has a history of back pain, which is currently well-managed with stretching exercises. He reports no current pain as long as he continues his stretching regimen. The patient has a significant medical history of undergoing open-heart surgery 26 years ago. He maintains his health through regular check-ups and is proactive in managing his conditions. [facility] Medical History Obesity (BMI 30-39.9) GERD without esophagitis Lumbar degenerative disc disease Primary osteoarthritis of knees, bilateral Pseudogout Chronic obstructive pulmonary disease (COPD) Pure hypercholesterolemia Benign essential hypertension Essential hypertension Atherosclerotic cardiovascular disease Ascending aortic aneurysm Surgical History History of esophagogastroduodenoscopy (EGD) Hx of colonoscopy (~02/20/19) History of laminectomy (~2007) S/P arthroscopy of knee (~2014) History of coronary artery bypass graft x 3 (~1998) Family History Father Myocardial infarction Mother No problems noted. Social History Household Members: Spouse Housing: [facility] Alcohol intake: current Alcohol intake frequency: does not drink Patient Tobacco Use Status: Former Tobacco user e-Cigarette/Vaping Use: Never Used Second Hand Smoke Exposure: Yes service: Yes ([employer]) Current occupational status: retired Cognitive needs: No Hearing needs: No Vision needs: Yes (Glasses) Questionnaire PHQ-9 Over the last 2 weeks, how often have you been bothered by any of the following problems? 1. Little interest or pleasure in doing things: not at all 2. Feeling down, depressed, or hopeless: not at all 3. Trouble falling or staying asleep, or sleeping too much: not at all 4. Feeling tired or having little energy: not at all 5. Poor appetite or overeating: not at all 6. Feeling bad about yourself - or that you are a failure or have let yourself or your family down: not at all 7. Trouble concentrating on things, such as reading the newspaper or watching television: not at all 8. Moving or speaking so slowly that other people could have noticed. Or the opposite - being so fidgety or restless that you have been moving around a lot more than usual: not at all 9. Thoughts that you would be better off or of hurting yourself in some way: not at all Total score: 0 Depression Screening Interpretation: Negative Depression Screening Done: Yes 85631 - PHQ-9 Billing: Yes Source: Developed by Drs. Oliver Jean, Pérez Bland and colleagues, with an educational bar from [employer]. Thrive Questionnaire Date Thrive assessed: 01/24/25 I am a: Patient What is your living situation today?: I have a steady place to live Within the past 12 months, did the food you bought not last and you didn't have the money to get more?: Never true Within the past 12 months, did you worry whether your food would run out before you got money to buy more?: Never true Do you have trouble paying for medicines?: No Do you have trouble getting transportation to medical appointments?: No Do you have trouble paying your heating and electricity bill?: No Do you have trouble taking care of your child, family member or friend?: No Do you have trouble with day-to-day activities such as bathing, preparing meals, shopping, managing finances, etc.?: No Are you currently unemployed and looking for a job?: No Are you interested in more education?: No Please select the resources that you would like help with: None Currently or been in a relationship where the following occur: No concerns reported THRIVE Score: 0 AUDIT C Alcohol Use Questionnaire (AUDIT-C) 1. How often do you have a drink containing alcohol?: Never Total Score: 0 CHER-7 AMB Questionnaire CHER-7 Date CHER - 7 assessed: 01/24/25 Feeling nervous, anxious, or on edge: 0 = Not at all Not being able to stop or control worryin = Not at all Worrying too much about different things: 0 = Not at all Trouble relaxin = Not at all Being so restless that it is hard to sit still: 0 = Not at all Becoming easily annoyed or irritable: 0 = Not at all Feeling afraid as if something awful might happen: 0 = Not at all Total CHER-7 score (0-4 normal; 5-9 mild; 10-14 moderate; 15-21 severe): 0 Source: Developed by Alfreda Harmon Kurt Kroenke and colleagues, with an educational bar from [employer]. CHER-7 Assessment Billing CHER-7 Assessment Tool: CHER-7 Assessment 34585 Review of Systems Const Denies headache(s) Eyes Denies loss of vision ENT Denies vertigo, Denies dizziness, Reports otalgia (Intermittently alternating from [id number]), Denies headache(s) and Denies sore throat Card Denies chest pain, Denies leg edema and Denies lightheadedness Resp Denies cough, Denies hemoptysis and Denies wheezing GI Denies abdominal pain, Denies melena, Denies constipation, Denies diarrhea and Denies vomiting Denies dysuria, Denies urinary frequency and Denies urinary urgency Musc Reports back pain (resolves with stretching), Denies joint swelling, Denies numbness and Denies tingling Neuro Denies Abnormal speech present, Denies behavioral changes, Denies vertigo, Denies dizziness, Denies headache(s), Denies loss of vision, Denies memory loss, Denies numbness and Denies tingling Psych Denies anxiety, Denies behavioral changes, Denies depression, Denies memory loss and Denies panic attacks Khris/Lymph Denies easy bleeding and Denies easy bruising Aller/Immun Denies wheezing Physical exam (Primary Care) Vital Signs: Last Vital Signs Temp 97.1 F 01/24/25 08:17 Pulse 76 01/24/25 08:17 BP 110/66 01/24/25 08:17 Pulse Ox 96 01/24/25 08:17 Oxygen Delivery Method Room Air 01/24/25 08:17 BMI result Body Mass Index 31.5 Tobacco/Smoking Status: Tobacco use Status Tobacco use date assessed 01/24/25 01/24/25 08:22 Patient Tobacco Use Status Former Tobacco user 01/24/25 08:22 e-Cigarette/Vaping Use Never Used 01/24/25 08:22 PHQ-9: PHQ-9 Score PHQ-9: Total score 0 01/24/25 09:11 Depression Screening Interpretation: Negative Thrive Assessment: Date of Thrive Assessment Date Thrive assessed 01/24/25 01/24/25 08:22 Currently or been in a relationship where the following occur: No concerns re ported Const General: healthy appearing, no acute distress, alert and awake Nutritional Appearance: well nourished Orientation/consciousness: oriented to person, oriented to place and oriented to time HENDE Ears: Abnormal EAC present excessive cerumen bilateral and erythema (Dried up brown wax partially blocking TMs) bilateral General nose exam: Normal nasal mucous membranes and turbinates present Eyes Conjunctivae: conjunctivae normal Sclerae: sclerae normal Pupils: Equal, round and reactive pupils present Neck Neck: Yes no lymphadenopathy and Yes no JVD Thyroid: Thyroid normal Carotids: no bruits Resp Effort & Inspection: normal respiratory effort and not tachypneic Auscultation: no crackles, no rales, no rhonchi and no wheezes Cardio Rate: regular rate Rhythm: regular rhythm Heart sounds: S1 normal heart sound present, S2 normal heart sound present, no murmurs and normal S1 and S2 GI Palpation (GI): Soft to palpation, nontender, no hepatomegaly and no splenomegaly Auscultation: normal bowel sounds General: Yes no CVA tenderness Back/Spine/Pelvis Back: no CVA tenderness Thoracic/Lumbar Spine: No thoracic spinal tenderness and No lumbar spinal tenderness Skin General skin exam: no rashes or lesions noted and dry skin Neuro General: oriented to person, oriented to place and oriented to time Cranial nerves: Yes Equal, round and reactive pupils present Speech: No Abnormal speech present Gait exam (Neuro): Normal gait present Motor exam (neuro): no tremor noted Extrem Right upper extremity: full ROM Left upper extremity: full ROM Right lower extremity: full ROM; no edema Left lower extremity: full ROM; no edema Psych Mental Status: mental status grossly normal Speech and movement: Normal speech and movement present Affect: normal affect Attitude: cooperative Thought process: Normal thought process present Results Reviewed Results Reviewed: Laboratory Tests 12/18/24 12/18/24 09:48 12:10 WBC 10.7 RBC 4.94 Hgb 16.4 Hct 47.5 MCV 96.2 MCH 33.2 H MCHC 34.5 RDW 12.9 Plt Count 318 D Sodium 140 Potassium 4.5 D Chloride 104 Carbon Dioxide 27 Anion Gap 14 BUN 19 H Creatinine 1.35 Estimated GFR 51 Fasting Glucose 103 H Calcium 9.9 Total Bilirubin 0.7 AST 35 ALT 15 Alkaline Phosphatase 85 Total Protein 8.1 H Albumin 4.4 Triglycerides 141 Cholesterol 139 LDL Cholesterol, Calc 68 HDL Cholesterol 43 25-OH Vitamin D Total 31.4 TSH 1.27 Urine Color Yellow Urine Appearance Clear Urine pH 6.0 Ur Specific [place] 1.010 Urine Protein Negative Urine Glucose (UA) Negative Urine Ketones Negative Urine Blood Negative Urine Nitrite Negative Ur Leukocyte Esterase Negative Coding Level of Care Code Est Pt Level 4 (49770) Diagnoses Otitis externa of both ears, unspecified chronicity, unspecified type H60.93 Chronicity: unspecified Laterality: bilateral Otitis externa type: unspecified type Essential hypertension I10 Ischemic cardiomyopathy I25.5 Atherosclerotic cardiovascular disease I25.10 Aneurysm of ascending aorta without rupture I71.21 Presence of rupture: without rupture Pure hypercholesterolemia E78.00 Impaired fasting glucose R73.01 Obesity (BMI 30-39.9) E66.9 GERD without esophagitis K21.9 Bilateral sacroiliitis M46.1 Acute pain of right shoulder M25.511 Chronicity: acute Degeneration of intervertebral disc of lumbar region, unspecified whether pain present M51.369 Disc-related pain type: unspecified whether pain present Asthma-COPD overlap syndrome J44.9 Pancreatic lesion K86.9 Additional Codes CHER-7 Assessment Billing - CHER-7 Assessment Tool: CHER-7 Assessment 98487 ([id number]) PHQ-9 - 05465 - PHQ-9 Billing: Yes ([id number]) Time Spent (min) 41 Assessment & Plan Assessment & Plan (1) Otitis externa: Code(s): H60.90 - Unspecified otitis externa, unspecified ear Category: Medical Qualifiers: Chronicity: unspecified Laterality: bilateral Otitis externa type: unspecified type Qualified Code(s): H60.93 - Unspecified otitis externa, bilateral Plan: Complaints of on and off otalgia in both ears. On exam bilateral ear canals are reddened and irritated. He also has excessive amount of dried up cerumen in bilateral ear canal. Will treat the patient with neomycin/polymyxin ear drops for 10 days, then have the patient use debrox to soften his ear wax and schedulel an appt for ear cleaning in office. (2) Essential hypertension: Code(s): I10 - Essential (primary) hypertension Category: Medical Plan: Blood pressure is 110/66, within goal Encouraged DASH diet and activity as tolerated-goal systolic is less than 130 mmhg Continue amlodipine 10 mg daily, losartan 100 mg daily (3) Ischemic cardiomyopathy: Code(s): I25.5 - Ischemic cardiomyopathy Category: Medical Plan: Echocardiogram in [place] for 2023, LVEF 50-55%. With no wall motion abnormalities. Clinically he asymptomatic. Follow up with Cardiology as scheduled (4) Atherosclerotic cardiovascular disease: Comment: S/P CABG in 1998 Code(s): I25.10 - Atherosclerotic heart disease of [place] coronary artery without angina pectoris Category: Medical Plan: Status post CABG in 1998- History of bypass surgery more than 10 years ago Echocardiogram in [place] for 2023, LVEF 50-55%. With no wall motion abnormalities. Mild mitral regurgitation. 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 Patient continues on statins.. He was on high-dose statins and had a lot of side effects. He is currently on simvastatin at this time. LDL was well controlled (5) Ascending aortic aneurysm: Code(s): I71.2 - Thoracic aortic aneurysm, without rupture Category: Medical Qualifiers: Presence of rupture: without rupture Qualified Code(s): I71.21 - Aneurysm of the ascending aorta, without rupture Plan: The patient most recent CT scan from [place], ascending aorta size 4.7/4.6 cm. Primary care from [facility], unchanged compared to previous study from 2023. CTA in [place] 2020 4.9/4.7 cm. Aortic arch and descending aorta are unremarkable. No dissection or other pathology. Overall the patient seems stable follow up with Cardiology as scheduled (6) Pure hypercholesterolemia: Code(s): E78.00 - Pure hypercholesterolemia, unspecified Category: Medical Plan: Triglycerides 141, total cholesterol 139, LDL 68, HDL 43 Reinforced low-cholesterol diet Continue simvastatin 80 mg at bedtime We will continue to monitor (7) Impaired fasting glucose: Code(s): R73.01 - Impaired fasting glucose Category: Medical Plan: Fasting glucose 103 and A1c 5.5% Reinforced low sugar/carbohydrate diet We will continue to monitor fasting glucose and A1c (8) Obesity (BMI 30-39.9): Code(s): E66.9 - Obesity, unspecified Category: Medical Plan: Reinforced low-cholesterol diet and activity as tolerated (9) GERD without esophagitis: Code(s): K21.9 - Gastro-esophageal reflux disease without esophagitis Category: Medical Plan: Do not eat meals or drink carbonated beverages within 3 hr of bedtime Decrease the amount of fried, fatty, and spicy foods to decrease gastric acid production Raise the head of the bed using 4 to 6-inch blocks, especially if nocturnal symptoms are present Lose weight if indicated; avoid tight-fitting clothing, especially around the waist Avoid foods that relax the Lower esophageal sphincter (chocolate, peppermint, high-fat foods etc.,) Continue omeprazole 40 mg daily (10) Bilateral sacroiliitis: Code(s): M46.1 - Sacroiliitis, not elsewhere classified Category: Medical Plan: History. The patient is denying pain today. Reports that his pain has been good with stretching (11) Right shoulder pain: Code(s): M25.511 - Pain in right shoulder Category: Medical Qualifiers: Chronicity: acute Qualified Code(s): M25.511 - Pain in right shoulder Plan: He denies pain. We will continue to monitor (12) Lumbar degenerative disc disease: Code(s): M51.36 - Other intervertebral disc degeneration, lumbar region Category: Medical Qualifiers: Disc-related pain type: unspecified whether pain present Qualified Code(s): M51.369 - Other intervertebral disc degeneration, lumbar region without mention of lumbar back pain or lower extremity pain Plan: Similarly the patient denies pain. Reports that his pain subsides with stretching and he has been doing well (13) Asthma-COPD overlap syndrome: Code(s): J44.9 - Chronic obstructive pulmonary disease, unspecified Category: Medical Plan: The patient has a 30 pack plus year. His last visit with pulmonology was on 01/13/2025. Patient had hi follow up CT scan on September 2024 that shows stable pleural plaque, plans to continue to monitor. The patient condition is stable on on Breo and albuterol MDI Follow up with pulmonology as scheduled (14) Pancreatic lesion: Comment: EUS and Bx of pancreatic & esophageal lesions came out BENIGN on pathology Code(s): K86.9 - Disease of pancreas, unspecified Category: Medical Plan: Patient underwent EUS and Bx of his pancreatic and esophageal lesions last year (2022) - pathology came out BENIGN and 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 Squamous mucosa with mild active esophagitis, and GMS and PASD stains for fungal organisms are negative Patient was reassured of his benign findings Follow up with GI as scheduled Orders: Orders Complete Blood Count Auto Diff 10 Months E66.9 - Obesity, unspecified, I10 - Essential (primary) hypertension, I25.10 - Atherosclerotic heart disease of [place] coronary artery without angina pectoris, I25.5 - Ischemic cardiomyopathy, I44.0 - Atrioventricular block, first degree, I49.3 - Ventricular premature depolarization, I49.9 - Cardiac arrhythmia, unspecified, I71.21 - Aneurysm of the ascending aorta, without rupture, J44.9 - Chronic obstructive pulmonary disease, unspecified, K21.9 - Gastro-esophageal reflux disease without esop hagitis, R00.1 - Bradycardia, unspecified, R73.01 - Impaired fasting glucose UA CC w/rflx Micro + Cult 10 Months E66.9 - Obesity, unspecified, I10 - Essential (primary) hypertension, I25.10 - Atherosclerotic heart disease of [place] coronary artery without angina pectoris, I25.5 - Ischemic cardiomyopathy, I44.0 - Atrioventricular block, first degree, I49.3 - Ventricular premature depolarization, I49.9 - Cardiac arrhythmia, unspecified, I71.21 - Aneurysm of the ascending aorta, without rupture, J44.9 - Chronic obstructive pulmonary disease, unspecified, K21.9 - Gastro-esophageal reflux disease without esophagitis, R00.1 - Bradycardia, unspecified, R73.01 - Impaired fasting glucose TSH reflex Free T4 10 Months E66.9 - Obesity, unspecified, I10 - Essential (primary) hypertension, I25.10 - Atherosclerotic heart disease of [place] coronary artery without angina pectoris, I25.5 - Ischemic cardiomyopathy, I44.0 - Atrioventricular block, first degree, I49.3 - Ventricular premature depolarization, I49.9 - Cardiac arrhythmia, unspecified, I71.21 - Aneurysm of the ascending aorta, without rupture, J44.9 - Chronic obstructive pulmonary disease, unspecified, K21.9 - Gastro-esophageal reflux disease without esophagitis, R00.1 - Bradycardia, unspecified, R73.01 - Impaired fasting glucose Lipid Panel 10 Months E66.9 - Obesity, unspecified, I10 - Essential (primary) hypertension, I25.10 - Atherosclerotic heart disease of [place] coronary artery without angina pectoris, I25.5 - Ischemic cardiomyopathy, I44.0 - Atri oventricular block, first degree, I49.3 - Ventricular premature depolarization, I49.9 - Cardiac arrhythmia, unspecified, I71.21 - Aneurysm of the ascending aorta, without rupture, J44.9 - Chronic obstructive pulmonary disease, unspecified, K21.9 - Gastro-esophageal reflux disease without esophagitis, R00.1 - Bradycardia, unspecified, R73.01 - Impaired fasting glucose Hemoglobin A1c 10 Months E66.9 - Obesity, unspecified, I10 - Essential (primary) hypertension, I25.10 - Atherosclerotic heart disease of [place] coronary artery without angina pectoris, I25.5 - Ischemic cardiomyopathy, I44.0 - Atrioventricular block, first degree, I49.3 - Ventricular premature depolarization, I49.9 - Cardiac arrhythmia, unspecified, I71.21 - Aneurysm of the ascending aorta, without rupture, J44.9 - Chronic obstructive pulmonary disease, unspecified, K21.9 - Gastro-esophageal reflux disease without esophagitis, R00.1 - Bradycardia, unspecified, R73.01 - Impaired fasting glucose Vitamin D 25-OH Total 10 Months E66.9 - Obesity, unspecified, I10 - Essential (primary) hypertension, I25.10 - Atherosclerotic heart disease of [place] coronary artery without angina pectoris, I25.5 - Ischemic cardiomyopathy, I44.0 - Atrioventricular block, first degree, I49.3 - Ventricular premature depolarization, I49.9 - Cardiac arrhythmia, unspecified, I71.21 - Aneurysm of the ascending aorta, without rupture, J44.9 - Chronic obstructive pulmonary disease, unspecified, K21.9 - Gastro-esophageal reflux disease without esophagitis, R00.1 - Bradycardia, unspecified, R73.01 - Impaired fasting glucose Comprehensive [place]. Panel Fast 10 Months E66.9 - Obesity, unspecified, I10 - Essential (primary) hypertension, I25.10 - Atherosclerotic heart disease of [place] coronary artery without angina pectoris, I25.5 - Ischemic cardiomyopathy, I44.0 - Atrioventricular block, first degree, I49.3 - Ventricular premature depolarization, I49.9 - Cardiac arrhythmia, unspecified, I71.21 - Aneurysm of the ascending aorta, without rupture, J44.9 - Chronic obstructive pulmonary disease, unspecified, K21.9 - Gastro-esophageal reflux disease without esophag itis, R00.1 - Bradycardia, unspecified, R73.01 - Impaired fasting glucose Medications: New [id number] 3.5-10,000-1 mg/mL-unit/mL-% 4 drps otic (ears) Q8H 10 mL 0RF 10 days carbamide peroxide 6.5% (Debrox) 5 drps otic (ears) Q12H 15 mL 0RF 4 days
--- OUTSIDE RECORDS SUMMARY | 2025-01-24 08:16 | XMS_ITS | Patient Health Record ---
Author Organization [facility] Address [address] [place] [address] Care Team Providers Care Logistics Loss Prevention Manager Name Role Phone Morteza Viera M.D. Primary Care Provider Estefania radha Alcaraz Jr Wilfrido Unavailable [phone] Allergies Allergen (clinical drug ingredient) Drug/Non Drug [...] Problem Status W/U Status Risk Notes Problem 499708867 Colon cancer screening (Z12.11) Active confirmed Problem 701546726 [facility] current use of non-steroidal anti-inflammato bernarda (NSAID) (Z79.1) Active confirmed Plan Of Treatment Future Test Test Name Order Date COLONOSCOPY 12/05/2018 Insurance Providers Payer Name Payer Address Payer Phone Subscriber Number Group Number Insured Name Patient Relationship to Insured Coverage Start Date Coverage End Date MEDICARE OF [place] [address] [place] [address] [id number] RAQUEL SANFORD Self - patient is the insured [facility](N o referral needed) [address] [place] [address] [id number] RAQUEL SANFORD Self - patient is the insured Medical (General) History Medical History History ICD Code coronary artery disease [place] 1998 mini stroke hypertension elevated cholesterol pseudogout Surgical History Surgery Date(Month/Year) back surgery 1988,2004 cataract-lens implants both eyes 2016 right knee arthroscopy 2015 CABG x3 1999
[2025-01-24 08:17] VITALS: BP 110/66; PULSE 76; TEMP 36.2; O2SAT 96; BMI 31.5
--- OUTSIDE RECORDS SUMMARY | 2025-01-24 08:17 | XMS_ITS | Patient Health Record ---
Author Organization [facility] Melissa Velez Address [address] [place], [place] [id number] Care Team Providers Care Control Clerk [employer] Name Role Phone VegaFrancisco Primary Care Provider Lito Marinelli Unavailable [phone] Reason For Referral No Information Medications Medication [...] Risk Notes Problem Urinary tract infectious disease (disorder) (60511769) Urinary tract infection, site not specified (N39.0) Active confirmed Plan Of Treatment Pending Test Test Name Order Date CYSTOSCOPY 10/20/2016 BLADDER SCAN 09/05/2016 Future Test Test Name Order Date CT Scan : Stone protocol 09/08/2016 CYSTOSCOPY 09/12/2016 Insurance Providers Payer Name Payer Address Payer Phone Subscriber Number Group Number Insured Name Patient Relationship to Insured Coverage Start Date Coverage End Date [facility] Options Part B claims [address] [place] [id number] [phone] [id number] RAQUEL SANFORD Self - patient is the insured [employer] [facility] [address] [place] [address] [phone] [id number] RAQUEL SANFORD Self - patient is the insured Medical (General) History Medical History History ICD Code Heart attack Hypertension Surgical History Surgery Date(Month/Year) Tonsils 1953 Triple bypass 1998 Hernia 2009 Right eye-cataract 10/2016
--- OUTSIDE RECORDS SUMMARY | 2025-01-24 08:17 | XMS_ITS | Patient Health Record ---
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 Name Role Phone Nahum Corona Primary Care Provider Laureano rosario ANASTASIA EDMONDS Unavailable [phone] Becca Bentley Unavailable Unavailable Allergies Allergen (clinical drug ingredient) Drug/Non Drug Allergy documented on EMR Reaction Allergy Type Onset Date Status angiotensin-converti ng enzyme inhibitor (FN) MELIDA-I (uncoded) cough Allergy Active atorvastatin Atorvastatin Calcium itching Drug Allergy Active ezetimibe Ezetimibe Unknown Drug Allergy Active rosuvastatin Rosuvastatin Calcium itching/nausea Drug Allergy Active Results Component Value Reference Range Notes EKG (18016) (MidMark-MMIQECQ ) IH Reviewed date: Interpretation: Performing Lab: Notes/Report: Heart Rate 75 Systolic Blood Pressure 0 Diastolic Blood Pressure 0 AL Interval 232 QT Interval 378 QTc Interval 0 QRS Duration 115 PWave Lacey 12 QrsWave Lacey -15 TWave Lacey -20 Mean Heart Rate 0 Diastolic Blood [...] Administered [id number] 37-0 1 PNEUMOCOCCAL 13 CONJ ([id number]) Unknown 04/21/2016 Pending PNEUMOCOCCAL 13 CONJ ([id number]) Unknown 04/21/2016 Administered FLU (Past vaccine of [...] Problem Status W/U Status Risk Notes Problem 061764713 Mixed hyperlipidemia (E78.2) Active confirmed Problem 48296929 Other chronic pa in (G89.29) Active confirmed Problem Angina co-occurrent and due to coronary arteriosclerosis (disorder) (79024105016191854) 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) Active confirmed Problem 224879192 Ischemic cardiomyopathy (I25.5) Active confirmed Problem 47282491 Chronic cough (R05.3) Active confirmed Problem 127522147 Other specified cough (R05.8) Active confirmed Problem 12293259 Essential hypertension (I10) Active confirmed Problem 481715508 Dyslipidemia (E78.5) Active confirmed Problem 815828676 Primary osteoarthritis of both knees (M17.0) Active confirmed Problem 620738308 Primary osteoarthritis of left knee (M17.12) Active confirmed Problem Aortic aneurysm (83032184) Aortic aneurysm (I71.9) Active confirmed Problem 91909184 Chronic cystitis (N30.20) Active confirmed Problem 087786723 Abnormal ECG (R94.31) Active confirmed Problem 888083955 Intermittent palpitations (R00.2) Active confirmed Problem 60131555 Muscle spasm (M62.838) Active confirmed Problem 26878504178447202 Pain of right sacroiliac joint (M53.3) Active confirmed Problem 12470550 Acute pain of le ft knee (M25.562) Active confirmed Problem 131729760 Ascending aortic aneurysm (I71.2) Active confirmed Problem History of coronary artery bypass grafting (872208242) 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) Active confirmed [facility], [place] Problem 938849406 Gastroesophageal reflux disease without esophagitis (K21.9) Active confirmed Problem 374873719 Somatic dysfunction of spine, lumbar (M99.03) Active confirmed Problem 096318415 Wellness examination (Z00.00) Active confirmed Problem 0410122110346 Coronary artery disease involving [place] coronary artery of [place] heart without angina pectoris (I25.10) Active confirmed Problem 86317406 Gout, unspecifie d cause, unspecified chronicity, unspecified site (M10.9) Active confirmed Problem 683441080 Degenerative tea r of left medial meniscus (M23.204) Active confirmed Problem 985248055 Chronic low back pain without sciatica, unspecified back pain laterality (M54.5) Active confirmed Problem 528368467 Pseudogout (M11.20) Active confirmed Problem 367010702 Right lower lobe pulmonary nodule (R91.1) Active confirmed Problem 309595321 HFrEF (heart failure with reduced ejection fraction) (I50.20) Active confirmed Problem 099016655 Aneurysm of ascending aorta without rupture (I71.21) Active confirmed Vital Signs Heart Rate 81 /min 10/24/2024 Respiratory Rate 17 /min 10/24/2024 Oximetry 94 10/24/2024 Blood pressure diastolic 70 mm Hg 04/16/2024 Height 69 in 10/24/2024 Blood pressure systolic 150 mm Hg 04/16/2024 Weight 216.4 lbs 10/24/2024 BMI 31.95 kg/m2 10/24/2024 Encounters Encounter Location Date Provider Diagnosis [id number] [address] [place], [place] [id number] 08/28/2024 ANASTASIA EDMONDS [id number] [address] [place] [id number] 10/11/2024 ANASTASIA EDMONDS [id number] [address] [place] [address] [id number] 10/31/2024 ANASTASIA EDMONDS [id number] [address] [place] [address] [id number] 04/16/2024 ANASTASIA EDMONDS Bradycardia R00.1 ; Aneurysm of ascending aorta without rupture I71.21 ; Atherosclerotic heart disease of [place]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 I25.118 ; Intermittent palpitations R00.2 ; Essential hypertension I10 ; Mixed hyperlipidemia E78.2 ; Ischemic cardiomyopathy I25.5 ; History of coronary artery bypass graft x 3 Z95.1 and GERD without esophagitis K21.[id number] [place] [id number] 10/15/2024 ANASTASIA EDMONDS Essential hypertensi on I10 ; Bradycardia R00.1 ; Aneurysm of ascending aorta without rupture I71.21 ; Atherosclerotic heart disease of [place]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 I25.118 ; Intermittent palpitations R00.2 ; Mixed hyperlipidemia E78.2 ; Ischemic cardiomyopathy I25.5 ; History of coronary artery bypass graft x 3 Z95.1 and GERD without esophagitis K21.[id number] [place] [address] [id number] 10/24/2024 ANASTASIA EDMONDS Essential hypertensi on I10 ; Bradycardia R00.1 ; Aneurysm of ascending aorta without rupture I71.21 ; Atherosclerotic heart disease of [place] coronary artery with other forms [...] asymptomatic. Monitor. 04/16/2024 Atherosclerotic heart disease of [place] coronary artery with other forms [...] pressure control. 10/24/2024 Atherosclerotic heart disease of [place] coronary artery with other forms [...] and simvastatin 10/15/2024 Atherosclerotic heart disease of [place] coronary artery with other forms [...] graft x 3 (ICD-10 - Z95.1) 1998 [place] 04/16/2024 GERD without esophagitis (ICD-10 - K21.9) 10/24/2024 History of coronary artery bypass graft x 3 (ICD-10 - Z95.1) 1998 [place] 10/15/2024 History of coronary artery bypass graft x 3 (ICD-10 - Z95.1) 1998, [place], [place] 10/15/2024 GERD without esophagitis (ICD-10 - K21.9) 10/24/2024 GERD without esophagitis (ICD-10 - K21.9) 10/24/2024 Other thank you for including me in the care of your patient! Plan Of Treatment Pending Test Test Name Order Date BASIC METABOLIC PANEL (BMP)MEDICARE 8004 8 05/31/2022 EKG (52712) (MidMark-MMIQECQ) IH 021 Echocardiogram 05/31/2022 Echocardiogram 11/03/2020 BASIC METABOLIC (THI) 03/11/2022 CXR 2 VIEWS (04711) IH 04/13/2021 CT- CTA CHEST AORTA (39063) (CNFL-CTACHE STAO) 04/13/2021 CT- CTA CHEST AORTA (30539) (CNFL-CTACHE STAO) 05/31/2022 Future Test Test Name Order Date LIPID PANEL (THI) 11/24/2020 LIPID PANEL (THI) 05/10/2021 NM- NUCLEAR TREADMILL STRESS TEST (99772, A9500, 17258)(ScImage-SONMTMSTRES) 09/21/2023 CT- CTA CHEST W/ CONTRAST (17197)(LARG-C TCTACHEST) 11/16/2023 COMPREHENSIVE METABOLIC PANEL(Q-23719) 1 URINALYSIS, COMPLETE W/REFLEX TO CULTURE (Q-3020) 04/16/2024 PSA (FREE AND TOTAL) (Q-20023) 4 TSH W/REFLEX TO FT4 (Q-25543) 04/16/2024 HEMOGLOBIN A1c (Q-496) 04/16/2024 CBC (INCLUDES DIFF/PLT)(Q-6399) 04/16/20 24 LIPID PANEL, STANDARD (Q-7600) 4 Next Appt Details Provider Name:ANASTASIA EDMONDS , 05/06/2025 08:30:00 AM, [address], [address], [place], [place], [id number], Insurance Providers Payer Name Payer Address Payer Phone Subscriber Number Group Number Insured Name Patient Relationship to Insured Coverage Start Date Coverage End Date MEDICARE [place] PART B [address] [facility] FANI GARICA [id number] Estevan Abdirashid Self - patient is the insured 8 8 [facility] PREFERRED [address] [place], [place] [phone] [id number] Abdirashid Barreot Self - patient is the insured 9 9 Medical (General) History Medical History History ICD Code CABGS 1998[place] and angina Ascending aortic aneurysm measuring 4.7 cm in 2019 Hypertension I10 Hyperlipemia E78.5 Gout PVCs Right lower lobe nodule stable on CT sca n GERD without esophagitis K21.9 Surgical History Surgery Date(Month/Year) CABG x 3 vessels 1998 abdominal hernia repair 2011 back back 2005 knee 2014 left cataract lens implant 2014 Right eye cataract surgery 11/2016 Cath Hospitalization History Reason Date(Month/Year) [facility] 02/2021 see sx hx colonoscopy chest pain right knee pain, [place] 10-09-17 BACK PAIN, [facility] cad/cabg 1998
== END 2025-01-24 08:54 | disposition home or self-care (01) ==
LOC: HO.HMCH 08:13
PROVIDERS: PCP Internal Medicine
DX: H60.93 Unspecified otitis externa, bilateral (principal); J44.9 Chronic obstructive pulmonary disease, unspecified; I10 Essential (primary) hypertension; Z68.31 Body mass index [BMI] 31.0-31.9, adult; E66.9 Obesity, unspecified; E78.00 Pure hypercholesterolemia, unspecified; I25.5 Ischemic cardiomyopathy; I25.10 Atherosclerotic heart disease of native coronary artery without angina pectoris; I71.21 Aneurysm of the ascending aorta, without rupture; R73.01 Impaired fasting glucose; K21.9 Gastro-esophageal reflux disease without esophagitis; M25.511 Pain in right shoulder

== ENCOUNTER → 2025-01-24 08:12 | Outpatient (BNVA) | payer MEDICARE, SELFPAY | PROVIDERS: PCP Internal Medicine | DX: H60.93 Unspecified otitis externa, bilateral (principal); I10 Essential (primary) hypertension; I25.5 Ischemic cardiomyopathy; I25.10 Atherosclerotic heart disease of native coronary artery without angina pectoris; I71.21 Aneurysm of the ascending aorta, without rupture; E78.00 Pure hypercholesterolemia, unspecified; R73.01 Impaired fasting glucose; E66.9 Obesity, unspecified; M46.1 Sacroiliitis, not elsewhere classified; M25.511 Pain in right shoulder; M51.369 Other intervertebral disc degeneration, lumbar region without mention of lumbar back pain or lower extremity pain; J44.9 Chronic obstructive pulmonary disease, unspecified; K86.9 Disease of pancreas, unspecified | CPT/HCPCS: 96127; 99212 ==

== ENCOUNTER 2025-03-21 08:33 | Outpatient (AMB) | payer MEDICARE, SELFPAY ==
--- OUTSIDE RECORDS SUMMARY | 2024-08-28 12:23 | XMS_ITS ---
Author Organization [facility] Billing Info Address [address] [place] [address] [place] [address] Care Team Providers Care Embroidery Operator Name Role Phone Nahum Corona Primary Care Provider UnavailANASTASIA Feng Unavailable [phone] Becca Bentley Unavailable Unavailable REASON FOR VISIT CT Encounters Encounter Location Date Provider Diagnosis [id number] [place], [place] [id number] 08/28/2024 ANASTASIA EDMONDS Plan Of Treatment Next Appt Details Provider Name:ANASTASIA EDMONDS , 05/06/2025 02:30:00 PM, [address] [facility] , [address], [place], [place], [id number], Progress Notes * Abdirashid BARRETO EDOB: [birth year] (78 yo M)Acc No.[id number]:08/28/2024 Patient: Abdirashid LEOS :1945 A ge:78 Y S ex:Male Address:[address], [place], [address] * true * Date: Generated for Printi ng/Faxing/eTransmitting on: 0 03/21/2025 08:55 AM EDT
--- OUTSIDE RECORDS SUMMARY | 2024-10-11 12:41 | XMS_ITS ---
Author Organization [facility] Billing Info Address [address] [place] [address] [place] [address] Care Team Providers Care Production Director Name Role Phone Nahum Corona Primary Care Provider UnavailANASTASIA Feng Unavailable [phone] Becca Bentley Unavailable Unavailable REASON FOR VISIT Lab/Test results Encounters Encounter Location Date Provider Diagnosis [id number] [address] [place], [place] [id number] 10/11/2024 ANASTASIA EDMONDS Plan Of Treatment Next Appt Details Provider Name:ANASTASIA EDMONDS , 05/06/2025 02:30:00 PM, [address] [facility] , [address], [place], [place], [phone], Progress Notes * Abdirashid BARRETO EDOB: [birth year] (78 yo M)Acc No.[id number]:10/11/2024 Patient: Abdirashid LEOS :1945 A ge:78 Y S ex:Male Address:[address], [place], [address] * true * Date: Generated for Printi ng/Faxing/eTransmitting on: 0 03/21/2025 08:54 AM EDT
--- OUTSIDE RECORDS SUMMARY | 2024-10-15 04:30 | XMS_ITS ---
Author Organization [facility] Billing Info Address [address] [place] [id number] Care Team Providers Care Security And Privacy Consultant Name Role Phone Nahum Corona Primary Care Provider UnavailANASTASIA Feng Unavailable [phone] Becca Bentley Unavailable Unavailable Allergies Allergen (clinical drug ingredient) Drug/Non Drug Allergy documented on EMR Reaction Allergy Type Onset Date Status angiotensin-converti ng enzyme inhibitor (FN) MELIDA-I (uncoded) cough Allergy Active atorvastatin Atorvastatin Calcium itching Drug Allergy Active ezetimibe Ezetimibe Unknown Drug Allergy Active rosuvastatin Rosuvastatin Calcium itching/nausea Drug Allergy Active Results Component Value Reference Range Notes EKG (13912) ([facility]Mark-MMIQECQ ) IH Reviewed date: Interpretation: Performing Lab: Notes/Report: Heart Rate 75 Systolic Blood Pressure 0 Diastolic Blood Pressure 0 DC Interval 232 QT Interval 378 QTc Interval 0 QRS Duration 115 PWave [place] 12 QrsWave [place] -15 TWave [place] -20 Mean Heart Rate 0 Diastolic Blood Pressure 0 Systolic Blood Pressure 0 MeanRR Interval 0 MinRR Interval 0 MaxRR Interval 0 NumBeats 0 REASON FOR VISIT 6 month f/u, CTA Chest not done due to miscommunication Medications Medication SIG (Take, Route, Frequency, Duration) Notes Start Date End Date Status Simvastatin 80 MG 1 tablet in the evening Orally Once a day Active Amoxicillin prn prior to [place] procedures Active Losartan Potassium 50 MG TAKE 1 TABLET BY MOUTH TWICE A DAY FOR 90 DAYS for 90 Active Amlodipine Besylate 5 MG TAKE 1 TABLET BY MOUTH EVERY DAY FOR 90 DAYS for 90 Active Aspir-81 81 MG 1 tablet Orally Once a day Active Omeprazole 40 MG 1 capsule 30 minutes before morning meal Orally Once a day for 90 days 04/13/2021 Active Magnesium 400 MG as directed Orally qd Active Amlodipine Besylate 5 MG 1 tablet Orally BID for 90 days Active Losartan Potassium 50 MG 1 tablet Orally twice daily Active Social History Tobacco Use: Social History Observation Description Date Details (start date - stop date) Former Smoker NA - NA Tobacco Status: Question Answer Notes Patient is a former smoker non tobacco user Vital Signs Height 69 in 10/15/2024 Weight 214.8 lbs 10/15/2024 BMI 31.72 kg/m2 10/15/2024 Heart Rate 81 /min 10/15/2024 Respiratory Rate 17 /min 10/15/2024 Oximetry 93 10/15/2024 Encounters Encounter Location Date Provider Diagnosis [id number] [address] [place] [address] [place] [address] [id number] 10/15/2024 ANASTASIA EDMONDS Essential hypertensi on I10 ; Bradycardia R00.1 ; Aneurysm of ascending aorta without rupture I71.21 ; 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 We will increase amlodipine dosing which should optimize his blood pressure control. 10/15/2024 Bradycardia (ICD-10 - R00.1) Currently asymptomatic. Monitor. 10/15/2024 Aneurysm of ascending aorta without rupture (ICD-10 - I71.21) He has a known history of ascending aortic aneurysm. There was concern that it was enlarging on aortogram performed in October of 2023. Repeat CT scan was performed later that month and showed stable aneurysm ( 4.6 x 4.7 cm). Will plan for annual CT scanning and can increase frequency as needed. This was discussed with the patient. 10/15/2024 Atherosclerotic heart disease of [place]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 (ICD-10 - I25.118) He has known history of coronary disease status post CABG in 1998. His most recent ischemic eval was done in October of 2023 which showed two patent grafts and concern that his SVG to RCA graft was down, however the RCA was filled by collaterals and no PCI was indicated. He was switched to amlodipine which improved his anginal symptoms. We will continue optimal medical therapy with baby aspirin and simvastatin 10/15/2024 Intermittent palpitations (ICD-10 - R00.2) 10/15/2024 Mixed hyperlipidemia (ICD-10 - E78.2) Thank you for including me in the care of your patient! 10/15/2024 Ischemic cardiomyopathy (ICD-10 - I25.5) 10/15/2024 History of coronary artery bypass graft x 3 (ICD-10 - Z95.1) 1998, [place], [place] 10/15/2024 GERD without esophagitis (ICD-10 - K21.9) Plan Of Treatment Medication Medication Name Sig Start Date Stop Date Notes Simvastatin 80 MG 1 tablet in the even ing Orally Once a day Aspir-81 81 MG 1 tablet Orally Once a day Amlodipine Besylate 5 MG 1 tablet Orally BID for 90 days Losartan Potassium 50 MG 1 tablet Orally twice daily Treatment Notes Assessment Notes Essential hypertension His blood pressur e is still above systolic goal of less than 130 mm of Hg. We will increase amlodipine dosing which should optimize his blood pressure control. Bradycardia Currently asymptomat ic. Monitor. Aneurysm of ascending aorta without rupt ure He has a known history of ascending aortic aneurysm. There was concern that it was enlarging on aortogram performed in October of 2023. Repeat CT scan was performed later that month and showed stable aneurysm ( 4.6 x 4.7 cm). Will plan for annual CT scanning and can increase frequency as needed. This was discussed with the patient. Atherosclerotic heart diseas e of [place]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 He has known history of coronary disease status post CABG in 1998. His most recent ischemic eval was done in October of 2023 which showed two patent grafts and concern that his SVG to RCA graft was down, however the RCA was filled by collaterals and no PCI was indicated. He was switched to amlodipine which improved his anginal symptoms. We will continue optimal medical therapy with baby aspirin and simvastatin Mixed hyperlipidemia Thank you for inclu ding me in the care of your patient! Next Appt Details Follow Up: 2 Weeks, Reason: Provider Name:ANASTASIA Torres GREY , 05/06/2025 02:30:00 PM, [address] , [address], [place], [place], [id number], Progress Notes * Abdirashid BARRETO EDOB: [birth year] (78 yo M)Acc No.[id number]:10/15/2024 PROGRESS NOTE Patient: Abdirashid LEOS Appointment Provider: Radu EDMONDS DO :1945 A ge:78 Y S ex:Male Date:10/15/2024 C #:[id number] Address:[address] [place] [address], [facility] [address] [place], [place] [phone] Pcp:Nahum Corona Check In:09:02 AM EST Subjective: * Chief Complaints: * 6 month f/uCTA Chest not done due to miscommunication * HPI: P atient History: Rina Barreto is a 78-year-old male with history of multivessel CAD, hypertension, hyperlipidemia who presents today for a follow-up visit. on since his last office visit he has been doing well without any anginal heart failure symptoms. Blood pressures overall seem primarily controlled but does have some slightly elevated blood pressure readings in the 140s. He has been unable to get his CTA done for his screening for his ascending aortic aneurysm and will plan to work on getting that done soon for further evaluation. We have discussed adjusting his blood pressure medicines with the addition of an afternoon dose of amlodipine. On his follow-up visit will discuss further about his blood pressure regimen and his CTA findings. His prior record have been reviewed personally and discussed with him. * ROS: C ARDIOLOGY: Constitutional: d enies fevers, unintentional weight loss.?Cardiovascular: s ee HPI. E yes: d enies diplopia. R espiratory: d enies coughing, wheezing. G astrointestinal: d enies melena, hematochezia. G enitourinary: d enies dysuria, hematuria. M usculoskeletal: d enies muscle pain, focal weakness. N eurological: d enies dizziness, lightheadedness. P sychiatric: d enies depressed mood, SI.?Extremities: d enies rashes. * Medical History: * Surgical History: C ABG x 3 vessels 1998abdominal hernia repair 2012back 1980sback 2005kn2013left cataract lens implant 2015Right eye cataract surgery 11/2016Cath * Hospitalization/Major Diagno stic Procedure: c ad/cabg 1999BACK PAIN, BARDMOOR right knee pain, [place] 6-07-04zwlro pain colonoscopy see sx [facility] CENTER-LOW HEAR RATE 02/2021 * Family History: M other: 99 yrs, dementia. F ather: 58 yrs, CAD. S ister(s): alive, healthy. B rother(s): alive, healthy. 2 brother(s) , 2 sister(s) - healthy. . * Social History: A lcohol Use Patient d oes not use alcohol T obacco Status Patient is a former smoker non tobacco user Quit in: 1 999 E xercise: Golf. M arital Status: . L gene with: spouse. H ealth Literacy Are medication labels often written in a way that is easy to read and understand? Y es Do you have problems completing medical forms because of difficulty understanding the instructions? N o I llicit Drug Use Patient/Family reports: N o illicit drug use A mbulatory Status : i s independent C affeine: coffee. D rugs: none. O ccupation/Work: Retired. * Medications: T akingAmlodipine Besylate 5 MG Tablet TAKE 1 TABLET BY MOUTH EVERY DAY FOR 90 DAYS Amoxicillin , Notes to Pharmacist: prn prior to dental proceduresAspir-81 81 MG Tablet Delayed Release 1 tablet Orally Once a day Losartan Potassium 50 MG Tablet TAKE 1 TABLET BY MOUTH TWICE A DAY FOR 90 DAYS Magnesium 400 MG Tablet as directed Orally , Notes to Pharmacist: qdOmeprazole 40 MG Capsule Delayed Release 1 capsule 30 minutes before morning meal Orally Once a day Simvastatin 80 MG Tablet 1 tablet in the evening Orally Once a day Medication List reviewed and reconciled with the patientTaking Amlodipine Besylate 5 MG Tablet TAKE 1 TABLET BY MOUTH EVERY DAY FOR 90 DAYS Taking Amoxicillin , Notes to Pharmacist: prn prior to dental proceduresTaking Aspir-81 81 MG Tablet Delayed Release 1 tablet Orally Once a day Taking Losartan Potassium 50 MG Tablet TAKE 1 TABLET BY MOUTH TWICE A DAY FOR 90 DAYS Taking Magnesium 400 MG Tablet as directed Orally , Notes to Pharmacist: qdTaking Omeprazole 40 MG Capsule Delayed Release 1 capsule 30 minutes before morning meal Orally Once a day Taking Simvastatin 80 MG Tablet 1 tablet in the evening Orally Once a day Medication List reviewed and reconciled with the patient * Allergies: R osuvastatin Calcium: itching/nausea - AllergyAtorvastatin Calcium: itching - AllergyEzetimibeACE-I: cough - Side Effectsno[Allergies Verified] Objective: * Vitals: H t: 69 in, Ht-cm: 175.26 cm, Wt: 214.8 lbs, Wt-k.43 kg, BMI:31.72, Weight Change: 5.2 lbs, Body Surface Area: 2.18, BP Left:136/82, HR:81, Respiratory Rate:17, Oxygen sat %:93. * Examination: C ARDIOLOGY: Constitutional: w ell developed, well nourished, no acute distress. Head and Face: n ormocephalic, atraumatic. Eyes: s clera anicteric, conjunctiva pink. Ears, Nose, Mouth, Throat: o ral mucosa moist. Neck: n o carotid bruits, no JVD. Respiratory: g ood inspiratory effort, clear to auscultation bilaterally without, rales, ronchi, wheezes. Cardiovascular: R egular rate and rhythm, normal S1 and S2, without murmurs, rubs, or gallops. Gastrointestinal/Abdomen: a bdomen soft, nontender, non distended, normal bowel sounds. Extremities: n o clubbing, cyanosis or edema, pulses 2+ bilaterally. Skin: w arm, dry and intact. Neurologic/Psychiatric: a lert and oriented to person, place and time, appropriate mood and affect. P revious Cardiology Testing: CT: : STABLE APPEARING 4.6 X 4.7 CM ASCENDING THORACIC AORTIC ANEURYSM, NO D ISSECTION . Other: : ENuc: 1. Myocardial perfusion imaging is abnormal. 2. Perfusion defect size is large. Extent and severity are moderate. The defect demnstrates no reversibility. 3. Perfusion defect size is large. Extent and severity are moderate. The defect shows complete reversibility. 4. There is mild to moderate left ventricular dysfunction. Stress Left Ventricular Ejection Fraction is 38 %. SDS: 10. 5. Consider coronary angiography. 6. This is a high risk study 10/20/23: 1. Normal left ventricular size. Moderately increased left ventricular wall thickness. Normal left ventricular systolic function. LV Ejection Fraction, visually, is 50-55 %. 2. There are no regional wall motion abnormalities. 3. Mildly dilated left atrium. 4. There is mild mitral valve regurgitation. 5. Trileaflet aortic valve. Trace aortic valve regurgitation. No aortic valve stenosis. 6. There is trivial tricuspid regurgitation. 7. No pericardial effusion. 8. There is mild aortic root dilation. 11/03/23: LHC - LM - large without disease- LCX - there is a mid vessel COLORER HIDES AND SKINS that fills distally via epicardial collaterals- LAD - occluded in the mid section- RCA - COLORER HIDES AND SKINS RAMEY - LAD - patentFree Radial to OM - patent No other SVG found. Assessment: * Assessment: 1. A neurysm of ascending aorta without rupture - I71.21 (Primary) 2 . E ssential hypertension - I10 3 . B radycardia - R00.1 4 . A therosclerotic heart disease of [place]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 - I25.118 5. I ntermittent palpitations - R00.2 6 . M ixed hyperlipidemia - E78.2 7 . I schemic cardiomyopathy - I25.5 8 . H istory of coronary artery bypass graft x 3 - Z95.1 N otes :1998, [place], [place] 9 . G ERD without esophagitis - K21.9 Plan: * Treatment: 2. E ssential hypertension Continue Losartan Potassium Tablet, 50 MG, 1 tablet, Orally, twice daily; I ncrease Amlodipine Besylate Tablet, 5 MG, 1 tablet, Orally, BID, 90 days, 180 Tablet, Refills 3. I maging: ECG (00678) (MidMark-MMIQECQ) IH Notes: His blood pressure is still above systolic goal of less than 130 mm of Hg. We will increase amlodipine dosing which should optimize his blood pressure control.??3.?Bradycardia? Notes: Currently asymptomatic. Monitor.??4.?Atherosclerotic heart disease of [place]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? Continue Aspir-81 Tablet Delayed Release, 81 MG, 1 tablet, Orally, Once a day;?Continue Simvastatin Tablet, 80 MG, 1 tablet in the evening, Orally, Once a day.?? Notes: He has known history of coronary disease status post CABG in 1998. His most recent ischemic eval was done in October of 2023 which showed two patent grafts and concern that his SVG to RCA graft was down, however the RCA was filled by collaterals and no PCI was indicated. He was switched to amlodipine which improved his anginal symptoms. We will continue optimal medical therapy with baby aspirin and simvastatin??5.?Mixed hyperlipidemia? Notes: Thank you for including me in the care of your patient!?? * Procedure Codes: 9 3000 EKG COMPLETE * Preventive Medicine: [place] PAF (Patient Assessment Form): F all Risk Assessment Date Screening Completed: 0 10/15/2024 Increased Fall Risk factors: N o fall risk factors History Falls in Past Year: N o falls in the past year Quality Measures: H igh Blood Pressure screening and follow up: Intervention Order Y es Follow Up for BP reading with PCP/Alternative Provider F ollow-up 1 month (finding) Lifestyle Recommendation L ifestyle education (procedure) (and prescribeanti-hypertensive pharmacology therapy, labtest for hypertension / electrocardiogram) W eight Assessment Above Normal BMI Follow-Up L ifestyle education regarding diet * Follow Up: 2 Weeks * Care Plan Details* * Sign off status: Completed true * Appointment Provider: Radu EDMONDS DO Date: 0 10/15/2024 Generated for Radha ayers/Campos/Pjitting on: 0 03/21/2025 08:55 AM EDT History and Physical Notes * HPI (History of Present Illness) Category Sub-Category Detail Notes Category Not es Patient History Abdirashid Barreto is a 78-year-old male with history of multivessel CAD, hypertension, hyperlipidemia who presents today for a follow-up visit. on since his last office visit he has been doing well without any anginal heart failure symptoms. Blood pressures overall seem primarily controlled but does have some slightly elevated blood pressure readings in the 140s. He has been unable to get his CTA done for his screening for his ascending aortic aneurysm and will plan to work on getting that done soon for further evaluation. We have discussed adjusting his blood pressure medicines with the addition of an afternoon dose of amlodipine. On his follow-up visit will discuss further about his blood pressure regimen and his CTA findings. His prior record have been reviewed personally and discussed with him. Examination Category Sub-Category Detail Notes Category Not es CARDIOLOGY Constitutional: well developed, well nourished, no acute distress Head and Face: normocephalic, atrau matic Eyes: sclera anicteric, co njunctiva pink Ears, Nose, Mouth, Throat: oral mucosa m oist Neck: no carotid bruits, n o JVD Respiratory: good inspiratory eff ort, clear to auscultation bilaterally without, rales, ronchi, wheezes Cardiovascular: Regular rate and rhy thm, normal S1 and S2, without murmurs, rubs, or gallops Gastrointestinal/Abdomen: abdomen soft, nontender, non distended, normal bowel sounds Extremities: no clubbing, cyanosi s or edema, pulses 2+ bilaterally Skin: warm, dry and intact Neurologic/Psychiatric: alert and orient ed to person, place and time, appropriate mood and affect Previous Cardiology Testing CT: 11/15: STABLE APPEARING 4.6 X 4.7 CM ASCENDING THORACIC AORTIC ANEURYSM, NO DISSECTION Other: 10/19/23: ENuc: 1. My ocardial perfusion imaging is abnormal.2. Perfusion defect size is large. Extent and severity are moderate. The defect demnstrates no reversibility.3. Perfusion defect size is large. Extent and severity are moderate. The defect shows complete reversibility.4. There is mild to moderate left ventricular dysfunction. Stress Left Ventricular Ejection Fraction is 38 %. SDS: 10.5. Consider coronary angiography.6. This is a high risk study10/20/23: 1. Normal left ventricular size. Moderately increased left ventricular wall thickness. Normal left ventricular systolic function.LV Ejection Fraction, visually, is 50-55 %.2. There are no regional wall motion abnormalities.3. Mildly dilated left atrium.4. There is mild mitral valve regurgitation.5. Trileaflet aortic valve. Trace aortic valve regurgitation. No aortic valve stenosis.6. There is trivial tricuspid regurgitation.7. No pericardial effusion.8. There is mild aortic root dilation.11/03/23: LHC- LM - large without disease- LCX - there is a mid vessel COLORER HIDES AND SKINS that fills distally via epicardial collaterals- LAD - occluded in the mid section- RCA - CTOLIMA - LAD - patentFree Radial to OM - patentNo other SVG found
--- OUTSIDE RECORDS SUMMARY | 2024-10-24 04:45 | XMS_ITS ---
Author Organization [facility] Billing Info Address [address] [place] [address] Care Team Providers Care Retail Merchandising Manager Name Role Phone Nahum Corona Primary Care Provider UnavailANASTASIA Feng Unavailable [phone] Becca Bentley Unavailable Unavailable Allergies Allergen (clinical drug ingredient) Drug/Non Drug Allergy documented on EMR Reaction Allergy Type Onset Date Status angiotensin-converti ng enzyme inhibitor (FN) MELIDA-I (uncoded) cough Allergy Active atorvastatin Atorvastatin Calcium itching Drug Allergy Active ezetimibe Ezetimibe Unknown Drug Allergy Active rosuvastatin Rosuvastatin Calcium itching/nausea Drug Allergy Active REASON FOR VISIT f/u with CTA, Has not been taking Amlodipine due to itching and leg cramps-took this AM for BP purposes Medications Medication SIG (Take, Route, Frequency, Duration) Notes Start Date End Date Status Losartan Potassium 50 MG 1 tablet Orally twice daily Active Amlodipine Besylate 5 MG 1 tablet Orally BID for 90 days Active Omeprazole 40 MG 1 capsule 30 minutes before morning meal Orally Once a day for 90 days 04/13/2021 Active Simvastatin 80 MG 1 tablet in the evening Orally Once a day Active Aspir-81 81 MG 1 tablet Orally Once a day Active Amoxicillin prn prior to den wilmer procedures Active Magnesium 400 MG as directed Orally qd Active Social History Tobacco Use: Social History Observation Description Date Details (start date - stop date) Former Smoker NA - NA Tobacco Status: Question Answer Notes Patient is a former smoker non tobacco user Vital Signs Height 69 in 10/24/2024 Weight 216.4 lbs 10/24/2024 BMI 31.95 kg/m2 10/24/2024 Heart Rate 81 /min 10/24/2024 Respiratory Rate 17 /min 10/24/2024 Oximetry 94 10/24/2024 Encounters Encounter Location Date Provider Diagnosis [id number] [address] [place], [place] [id number] 10/24/2024 ANASTASIA EDMONDS Essential hypertensi on I10 ; Bradycardia R00.1 ; Aneurysm of ascending aorta without rupture I71.21 ; 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 Continue off of amlodipine for now but may need to start back 5 mg once a day if losartan is not adequate for controlling his blood pressures at home. 10/24/2024 Bradycardia (ICD-10 - R00.1) Historically asymptomatic, normal in the office today 10/24/2024 Aneurysm of ascending aorta without rupture (ICD-10 - I71.21) He has a known history of ascending aortic aneurysm Measuring a stable 4.7 cm as of September 2024. He will need yearly CTAs. 10/24/2024 Atherosclerotic heart disease of [place] coronary artery with other forms of angina [...] medical therapy with baby aspirin and simvastatin 10/24/2024 Intermittent palpitations (ICD-10 - R00.2) 10/24/2024 Mixed hyperlipidemia (ICD-10 - E78.2) cut simvastatin half to 40 mg 10/24/2024 Ischemic cardiomyopathy (ICD-10 - I25.5) 10/24/2024 History of coronary artery bypass graft x 3 (ICD-10 - Z95.1) 1998, [place], [place] 10/24/2024 GERD without esophagitis (ICD-10 - K21.9) 10/24/2024 Other thank you for including me in the care of your patient! Plan Of Treatment Medication Medication Name Sig Start Date Stop Date Notes Losartan Potassium 50 MG 1 tablet Orally twice daily Amlodipine Besylate 5 MG 1 tablet Orally BID for 90 days Simvastatin 80 MG 1 tablet in the even ing Orally Once a day Aspir-81 81 MG 1 tablet Orally Once a day Treatment Notes Assessment Notes Essential hypertension His blood pressur e is still above systolic goal of less than 130 mm of Hg. Continue off of amlodipine for now but may need to start back 5 mg once a day if losartan is not adequate for controlling his blood pressures at home. Bradycardia Historically asympto matic, normal in the office today Aneurysm of ascending aorta without rupt ure He has a known history of ascending aortic aneurysm Measuring a stable 4.7 cm as of September 2024. He will need yearly CTAs. Atherosclerotic heart diseas e of [place] coronary artery with other forms of angina [...] with baby aspirin and simvastatin Mixed hyperlipidemia cut simvastatin raimundo f to 40 mg Other thank you for includ ing me in the care of your patient! Next Appt Details Follow Up: 6 Months, Reason: Provider Name:ANASTASIA EDMONDS , 05/06/2025 02:30:00 PM, [address] , [address], [place], [place], [id number], Progress Notes * Abdirashid BARRETO EDOB: [birth year] (78 yo M)Acc No.[id number]:10/24/2024 PROGRESS NOTE Patient: Abdirashid LEOS Appointment Provider: Radu EDMONDS DO :1945 A ge:78 Y S ex:Male Date:10/24/2024 Luis WRIGHT#:[id number] Address:[address], [id number] Pcp:Nahum Corona Check In:08:38 AM EST Subjective: * Chief Complaints: * f /u with CTAHas not been taking Amlodipine due to itching and leg cramps-took this AM for BP purposes * HPI: P atient History: Rina Barreto is a 78-year-old male with history of multivessel CAD, hypertension, hyperlipidemia who presents today for a follow-up visit. on since his last office visit he has been doing well without any anginal heart failure symptoms. Blood pressures at home seemingly controlled but he has been having symptoms with the increased dose of amlodipine. This is likely interacting with his simvastatin. He has stopped his amlodipine occasionally and notices that his blood pressures are normal on just losartan at home. His simvastatin he believes it is also causing him some itchiness which could be related to its interaction with amlodipine but also could be related to his statin intolerances this is the same symptoms he gets with prior statin use as well. Ultimately we decided to start simvastatin back at 40 mg once a day. He will continue solely on losartan 50 mg b.i.d. and if he notices that his blood pressures elevate significantly then he can take amlodipine 5 mg once a day. Otherwise his CTA is been reviewed showing a stable 4.7 cm ascending aortic aneurysm. He will continue on his other medications as prescribed. He will need a CTA annually. His prior record have been reviewed personally [...] ABG x 3 vessels 1998abdominal hernia repair ack 1980sback 2006knee 2014left cataract lens implant 2015Right eye cataract surgery 11/2016Cath * Hospitalization/Major Diagno stic Procedure: c ad/cabg 1999BACK PAIN, BARDMOOR right knee pain, [place] 8-00-15eyfqc pain colonoscopy see sx [facility] 02/2021 * Family History: [...] Medications: T akingAmlodipine Besylate 5 MG Tablet 1 tablet Orally BID Amoxicillin , Notes to Pharmacist: prn prior to dental proceduresAspir-81 81 MG Tablet Delayed Release 1 tablet Orally Once a day Losartan Potassium 50 MG Tablet 1 tablet Orally twice daily Magnesium 400 MG Tablet as directed Orally , Notes to Pharmacist: qdOmeprazole 40 MG Capsule Delayed Release 1 capsule 30 minutes before morning meal Orally Once a day Taking Amlodipine Besylate 5 MG Tablet 1 tablet Orally BID Taking Amoxicillin , Notes to Pharmacist: prn prior to dental proceduresTaking Aspir-81 81 MG Tablet Delayed Release 1 tablet Orally Once a day Taking Losartan Potassium 50 MG Tablet 1 tablet Orally twice daily Taking Magnesium 400 MG Tablet as directed Orally , Notes to Pharmacist: qdTaking Omeprazole 40 MG Capsule Delayed Release 1 capsule 30 minutes before morning meal Orally Once a day Not-TakingSimvastatin 80 MG Tablet 1 tablet in the evening Orally Once a day Medication List reviewed and reconciled with the patientNot-Taking Simvastatin 80 MG Tablet 1 tablet in the evening Orally Once a day Medication List reviewed and reconciled with the patient * Allergies: R osuvastatin Calcium: itching/nausea - AllergyAtorvastatin Calcium: itching - AllergyEzetimibeACE-I: cough - Side Effectsno[Allergies Verified] Objective: * Vitals: H t: 69 in, Ht-cm: 175.26 cm, Wt: 216.4 lbs, Wt-k.16 kg, BMI:31.95, Weight Change: 1.6 lbs, Body Surface Area: 2.18, BP Left:152/84, HR:81, Respiratory Rate:17, Oxygen sat %:94. * Examination: C ARDIOLOGY: Constitutional: w ell [...] LCX - there is a mid vessel PHARMACOMETRICIAN that fills distally via epicardial collaterals- LAD - occluded in the mid section- RCA - PHARMACOMETRICIAN RAMEY - LAD - patentFree Radial to OM - patent No other SVG found. Assessment: * Assessment: 1. A neurysm of ascending aorta without rupture - I71.21 (Primary) 2 . E ssential hypertension - I10 3 . B radycardia - R00.1 4 . A therosclerotic heart disease of [place]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 - I25.118 5. I ntermittent palpitations - R00.2 6 . M ixed hyperlipidemia - E78.2 7 . I schemic cardiomyopathy - I25.5 8 . H istory of coronary artery bypass graft x 3 - Z95.1 N otes :1998, [place], [place] 9 . G ERD without esophagitis - K21.9 Plan: * Treatment: 2. E ssential hypertension Continue Losartan Potassium Tablet, 50 MG, 1 tablet, Orally, twice daily; I ncrease Amlodipine Besylate Tablet, 5 MG, 1 tablet, Orally, BID, 90 days, 180 Tablet, Refills 3. Notes: His blood pressure is still above systolic goal of less than 130 mm of Hg. Continue off of amlodipine for now but may need to start back 5 mg once a day if losartan is not adequate for controlling his blood pressures at home. 3. B radycardia Notes: Historically asymptomatic, normal in the office today 4. A therosclerotic heart disease of [place]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 Continue Aspir-81 Tablet Delayed Release, 81 MG, 1 tablet, Orally, Once a day; C ontinue Simvastatin Tablet, 80 MG, 1 tablet in the evening, Orally, Once a day. Notes: He has known history of coronary [...] medical therapy with baby aspirin and simvastatin 5. M ixed hyperlipidemia Notes: cut simvastatin half to 40 mg 6. O thers Notes: thank you for including me in the care of your patient! * Procedure Codes: * Preventive Medicine: [place] PAF (Patient Assessment Form): F all Risk Assessment Date Screening Completed: 0 10/24/2024 Increased Fall Risk factors: N o fall [...] BMI Follow-Up L ifestyle education regarding diet L eft Ventricular Ejection Fraction Results (%) 5 0-55 Date 0 10/20/2023 * Follow Up: 6 Months * Care Plan Details* * Sign off status: Completed true * Appointment Provider: Radu EDMONDS DO Date: 0 10/24/2024 Generated for Radha ayers/Campos/Pjitting on: 0 03/21/2025 [...] any anginal heart failure symptoms. Blood pressures at home seemingly controlled but he has been having symptoms with the increased dose of amlodipine. This is likely interacting with his simvastatin. He has stopped his amlodipine occasionally and notices that his blood pressures are normal on just losartan at home. His simvastatin he believes it is also causing him some itchiness which could be related to its interaction with amlodipine but also could be related to his statin intolerances this is the same symptoms he gets with prior statin use as well. Ultimately we decided to start simvastatin back at 40 mg once a day. He will continue solely on losartan 50 mg b.i.d. and if he notices that his blood pressures elevate significantly then he can take amlodipine 5 mg once a day. Otherwise his CTA is been reviewed showing a stable 4.7 cm ascending aortic aneurysm. He will continue on his other medications as prescribed. He will need a CTA annually. His prior record have been reviewed personally [...] LCX - there is a mid vessel PHARMACOMETRICIAN that fills distally via epicardial collaterals- LAD - occluded in the mid section- RCA - CTOLIMA - LAD - patentFree Radial to OM - patentNo other SVG found
--- OUTSIDE RECORDS SUMMARY | 2024-10-31 10:05 | XMS_ITS ---
Author Organization [facility] Billing Info Address [address] [place] [address] [place] [address] Care Team Providers Care Field Laborer Name Role Phone Nahum Corona Primary Care Provider UnavailANASTASIA Feng Unavailable [phone] Becca Bentley Unavailable Unavailable REASON FOR VISIT BP Encounters Encounter Location Date Provider Diagnosis [id number] [address] [place], [place] [id number] 10/31/2024 ANASTASIA EDMONDS Plan Of Treatment Next Appt Details Provider Name:ANASTASIA EDMONDS , 05/06/2025 02:30:00 PM, [address] [facility] , [address], [place], [place], [id number], Progress Notes * Abdirashid BARRETO EDOB: 7 (78 yo M)Acc No.[id number]:10/31/2024 Patient: Abdirashid LEOS :1945 A ge:78 Y S ex:Male Address:[address], [address], [place], [address] * true * Date: Generated for Printi ng/Faxing/eTransmitting on: 0 03/21/2025 08:55 AM EDT
[2025-03-21 08:35] VITALS: BP 136/80; PULSE 42; O2SAT 95; BMI 32.4
--- NOTE | 2025-03-21 08:35 | A.OFFPC_ITS ---
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 Required: No Accompanied by: Self / Same As Patient Allergies Statins Adverse Reaction (Intermediate, Uncoded 03/21/25 09:10) Unknown Medication List - Last Reconciled 03/21/25 by Donald Monroe MD albuterol sulfate 90 mcg/actuation 2 puffs inhalation Q6H PRN amlodipine 10 mg PO DAILY aspirin 81 mg PO DAILY carbamide peroxide 6.5% (Debrox) 5 drps otic (ears) Q12H 4 days diclofenac sodium 3% 1 appl topical BID PRN 30 days fluticasone furoate-vilanterol 100-25 mcg/dose (Breo Ellipta) 1 inh inhalation DAILY losartan 100 mg PO DAILY magnesium oxide 400 mg PO DAILY multivitamin 1 tab PO DAILY naproxen 500 mg PO BID PRN 30 days omeprazole 40 mg PO QAM 90 days simvastatin 80 mg PO BEDTIME 90 days Tobacco use date assessed: 03/21/25 Fall risk assessment: No Falls in past year Last assessed Fall Risk: 03/21/25 Dental Screening Dental Screen Date: 03/21/25 Did you have a dental visit in the last 12 months?: Yes Did you have a dental problem in the last 6 months where you did not have access to dental care?: No Was dental information given to patient?: Patient has dentist HPI Annual Exam HPI Details Patient comes in today for his annual physical examination States that he feels okay and is getting ready to head down to [place] next week for his winter stay down there He denies any headaches or dizziness Denies any chest pains, no SOB No nausea/vomiting, no abdominal pain No change in bowel habits noted Denies any acute urinary symptoms He will be due for repeat colonoscopy in 2028 (10 year recall) with Dr. Alcaraz, [facility] His most recent labs were done back in late November 2024 Needs his Simvastatin Rx refilled today PFSH Medical History Obesity (BMI 30-39.9) GERD without esophagitis Lumbar degenerative disc disease Primary osteoarthritis of knees, bilateral Pseudogout Chronic obstructive pulmonary disease (COPD) Pure hypercholesterolemia Benign essential hypertension Essential hypertension Atherosclerotic cardiovascular disease Ascending aortic aneurysm Surgical History History of esophagogastroduodenoscopy (EGD) Hx of colonoscopy (~02/20/19) History of laminectomy (~2007) S/P arthroscopy of knee (~2014) History of coronary artery bypass graft x 3 (~1998) Family History Father Myocardial infarction Mother No problems noted. Social History Household Members: [facility] Alcohol intake: current Alcohol intake frequency: does not drink Patient Tobacco Use Status: Former Tobacco user e-Cigarette/Vaping Use: Never Used Second Hand Smoke Exposure: Yes service: Yes ([employer]) Current occupational status: retired Cognitive needs: No Hearing needs: No Vision needs: Yes (Glasses) Questionnaire PHQ-9 Over the last 2 weeks, how often have you been bothered by any of the following problems? 1. Little interest or pleasure in doing things: not at all 2. Feeling down, depressed, or hopeless: not at all 3. Trouble falling or staying asleep, or sleeping too much: not at all 4. Feeling tired or having little energy: not at all 5. Poor appetite or overeating: not at all 6. Feeling bad about yourself - or that you are a failure or have let yourself or your family down: not at all 7. Trouble concentrating on things, such as reading the newspaper or watching television: not at all 8. Moving or speaking so slowly that other people could have noticed. Or the opposite - being so fidgety or restless that you have been moving around a lot more than usual: not at all 9. Thoughts that you would be better off or of hurting yourself in some way: not at all Total score: 0 Depression Screening Interpretation: Negative Depression Screening Done: Yes 00074 - PHQ-9 Billing: Yes Source: Developed by Drs. Oliver L. TedAlfreda echevarria Kurt Kroenke and colleagues, with an educational bar from [employer] Thrive Questionnaire Date Thrive assessed: 03/21/25 I am a: Patient What is your living situation today?: I have a steady place to live Within the past 12 months, did the food you bought not last and you didn't have the money to get more?: Never true Within the past 12 months, did you worry whether your food would run out before you got money to buy more?: Never true Do you have trouble paying for medicines?: No Do you have trouble getting transportation to medical appointments?: No Do you have trouble paying your heating and electricity bill?: No Do you have trouble taking care of your child, family member or friend?: No Do you have trouble with day-to-day activities such as bathing, preparing meals, shopping, managing finances, etc.?: No Are you currently unemployed and looking for a job?: No Are you interested in more education?: No Please select the resources that you would like help with: None Currently or been in a relationship where the following occur: No concerns reported THRIVE Score: 0 AUDIT C Alcohol Use Questionnaire (AUDIT-C) 1. How often do you have a drink containing alcohol?: Never 3. How often do you have six or more drinks on one occasion?: Never Total Score: 0 Score Reviewed/Action Taken: Yes CHER-7 AMB Questionnaire CHER-7 Date CHER - 7 assessed: 01/24/25 Source: Developed by Drs. Oliver Jean, Pérez Bland and colleagues, with an educational bar from [employer] Review of Systems Const Denies chills, Denies fatigue, Denies fever(s), Denies headache(s), Denies malaise and Denies weakness Eyes Denies blurry vision, Denies change in vision, Denies irritation and Denies itchy eyes ENT Denies dysphagia, Denies dizziness, Denies otalgia, Denies headache(s), Denies nasal congestion, Denies neck pain, Denies odynophagia and Denies sore throat Card Denies chest pain, Denies rapid heart rate, Denies irregular heart rhythm, Denies palpitations and Denies dyspnea Resp Denies chest congestion, Denies cough, Denies dyspnea and Denies wheezing GI Denies abdominal pain, Denies bloating, Denies constipation, Denies dysphagia, Denies heartburn, Denies diarrhea, Denies nausea, Denies odynophagia and Denies vomiting Denies hematuria, Denies difficulty urinating, Denies dysuria, Denies urinary frequency and Denies urinary urgency Musc Denies back pain, Denies arthralgias, Denies joint swelling, Denies muscle weakn ess and Denies neck pain Skin/Breast Denies change in pigmentation, Denies lesions, Denies rash and Denies unusual bruising Neuro Denies dizziness, Denies headache(s), Denies paresthesias and Denies weakness Endo Denies fatigue and Denies palpitations Aller/Immun Denies itchy eyes and Denies wheezing Physical exam (Primary Care) Vital Signs: Last Vital Signs Pulse 42 L 03/21/25 08:35 BP 110/78 03/21/25 09:26 Pulse Ox 95 03/21/25 08:35 Oxygen Delivery Method Room Air 03/21/25 08:35 BMI result Body Mass Index 32.4 Tobacco/Smoking Status: Tobacco use Status Tobacco use date assessed 03/21/25 03/21/25 08:40 Patient Tobacco Use Status Former Tobacco user 03/21/25 08:40 e-Cigarette/Vaping Use Never Used 03/21/25 08:40 Depression Screening Interpretation: Negative Thrive Assessment: Date of Thrive Assessment Date Thrive assessed 01/24/25 03/21/25 08:40 Currently or been in a relationship where the following occur: No concerns reported Const General: no acute distress, alert and awake Orientation/consciousness: patient oriented x3 [facility] Head: Yes normocephalic and Yes atraumatic Ears: external ears normal, TM's normal bilaterally and EAC's normal General nose exam: No nasal discharge present Face and sinus: Yes normal facial exam and Yes sinuses nontender Teeth and gingiva: dentition normal Throat: Yes posterior oropharynx normal and Yes tonsils normal (no TP congestion) Eyes Eyelids: Yes eyelids normal Conjunctivae: conjunctivae normal Pupils: Equal, round and reactive pupils present EOM: EOMs intact bilaterally Neck Neck: Yes no lymphadenopathy and Yes supple Thyroid: Thyroid normal Resp Auscultation: clear to auscultation bilaterally, no rales and no wheezes Cardio Rate: regular rate Rhythm: regular rhythm Heart sounds: no murmurs GI Palpation (GI): Soft to palpation, nontender and No hepatosplenomegaly present Auscultation: normal bowel sounds General: Yes no CVA tenderness Back/Spine/Pelvis Back: no CVA tenderness Thoracic/Lumbar Spine: thoracic and lumbar spine normal to inspection Skin Lesions: no lesions Rashes: no rashes Neuro General: patient oriented x3, moves all extremities, no focal motor deficits and CN's II-XI intact bilaterally Cranial nerves: Yes Equal, round and reactive pupils present Cognition (Neuro): normal cognition Gait exam (Neuro): Normal gait present Extrem General: Yes no clubbing, cyanosis or edema Results Reviewed Results Reviewed: Laboratory Tests 12/18/24 12/18/24 12/18/24 09:40 09:48 12:10 WBC 10.7 Hgb 16.4 Hct 47.5 Plt Count 318 D Sodium 140 Potassium 4.5 D Creatinine 1.35 Estimated GFR 51 Fasting Glucose 103 H Hemoglobin A1c % 5.5 Calcium 9.9 AST 35 ALT 15 Cholesterol 139 LDL Cholesterol, Calc 68 HDL Cholesterol 43 25-OH Vitamin D Total 31.4 TSH 1.27 Ur Specific [place] 1.010 Urine Protein Negative Urine Glucose (UA) Negative Urine Blood Negative Urine Nitrite Negative Ur Leukocyte Esterase Negative Coding Level of Care Code Est Pt Prev Care >65y(19236) Diagnoses Annual physical exam Z00.00 Benign essential hypertension I10 Aneurysm of ascending aorta without rupture I71.21 Presence of rupture: without rupture Pure hypercholesterolemia E78.00 Atherosclerotic cardiovascular disease I25.10 Chronic obstructive pulmonary disease, unspecified COPD type J44.9 COPD type: unspecified COPD Pseudogout M11.20 Primary osteoarthritis of knees, bilateral M17.0 Degeneration of intervertebral disc of lumbar region, unspecified whether pain present M51.369 Disc-related pain type: unspecified whether pain present GERD without esophagitis K21.9 Obesity (BMI 30-39.9) E66.9 Additional Codes PHQ-9 - 14880 - PHQ-9 Billing: Yes ([id number]) Assessment & Plan Assessment & Plan (1) Annual physical exam: Code(s): Z00.00 - Encounter for general adult medical examination without abnormal findings Category: Medical Plan: Results of his labs done back in late November 2024 reviewed - his numbers are all within normal or acceptable parameters He is up-to-date with his colon cancer screening - last had his colonoscopy done in [address] Alcaraz and he will be due for repeat colonoscopy in 2028, health and age permitting (2) Benign essential hypertension: Code(s): I10 - Essential (primary) hypertension Category: Medical Plan: Reinforced low sodium diet - goal is systolic BP of at least 130 mm or less, due to his AAA Continue Amlodipine 10 mg QD and Losartan 100 mg QD (3) Ascending aortic aneurysm: Code(s): I71.2 - Thoracic aortic aneurysm, without rupture Category: Medical Qualifiers: Presence of rupture: without rupture Qualified Code(s): I71.21 - Aneurysm of the ascending aorta, without rupture Plan: Chest CT done in February 2019 revealed an aneurysmal dilatation of the ascending aorta with maximal dimension in the transverse plane of 4.5 cm abd perpendicular to a center line of 4.4 cm (maximal dimension for patient at age 73 should be 4.3 cm) Repeat CTA in August 2020 (done in [place]) revealed (+) fusiform ascending aortic aneurysm measuring 49/47 mm.? Aortic arch and descending aorta are unremarkable.? No dissection or other pathology.? Per prior studies, had 4.6/4.7 cm and 4.5/4.4 cm.? Hence that has increased in size Echocardiogram done (in [place]) in October 2020 revealed normal LV size; systolic function is mildly to moderately reduced and EF is estimated to be around 40 to 45%, with NO regional wall motion abnormalities noted. There is moderate diffuse hypokinesia and wall thickness is mildly increased.? Doppler parameters are reportedly consistent with abnormal LV relaxation (grade 1 diastolic dysfunction) His most recent chest CTA done on 10/15/2024 in [place], [place] revealed the ascending thoracic aorta to be unchanged in diameter at 4.7 cm He will likely be getting repeat imaging studies down in [place] again next spr ing Follow up with cardiology as scheduled for continuing surveillance (4) Pure hypercholesterolemia: Code(s): E78.00 - Pure hypercholesterolemia, unspecified Category: Medical Plan: Reinforce low-cholesterol diet Continue Simvastatin 80 mg QD Will recheck his labs and fasting lipids in November 2025 for follow-up (5) Atherosclerotic cardiovascular disease: Comment: S/P CABG in 1998 Code(s): I25.10 - Atherosclerotic heart disease of [place] coronary artery without angina pectoris Category: Medical Plan: Patient remains asymptomatic from a cardiac standpoint Continue Aspirin 81 mg QD Follow up with cardiology as scheduled (6) Chronic obstructive pulmonary disease (COPD): Code(s): J44.9 - Chronic obstructive pulmonary disease, unspecified Category: Medical Qualifiers: COPD type: unspecified COPD Qualified Code(s): J44.9 - Chronic obstructive pulmonary disease, unspecified Plan: PFT done in 2012 revealed mild to moderate degree of restrictive pulmonary disease and moderately severe obstructive airway disease with no reversibility after bronchodilator therapy States that he had another bout of COPD exacerbation a couple of weeks ago but he was prescribed a short course of oral Prednisone by Dr. Edmonds, which cleared up his symptoms promptly Continue Breo Ellipta 100-25 mcg 1 inhalation QD and Albuterol HFA 1 to 2 inhalations Q 6 hours as needed Follow up with pulmonary as scheduled (7) Pseudogout: Code(s): M11.20 - Other chondrocalcinosis, unspecified site Category: Medical Plan: Patient follows up with orthopedics down in [place] when he is down there in the winter and spring months Continue Indomethacin 25 mg, 1 capsule with food or milk 3 times a day as needed for symptomatic relief (8) Primary osteoarthritis of knees, bilateral: Code(s): M17.0 - Bilateral primary osteoarthritis of knee Category: Medical Plan: States that he receives cortisone injections in his knees from orthopedics in [place] when needed (9) Lumbar degenerative disc disease: Code(s): M51.36 - Other intervertebral disc degeneration, lumbar region Category: Medical Qualifiers: Disc-related pain type: unspecified whether pain present Qualified Code(s): M51.369 - Other intervertebral disc degeneration, lumbar region without mention of lumbar back pain or lower extremity pain Plan: Reinforced activity and weight-lifting restrictions Will consider referring to pain management if his lower back symptoms get worse (10) GERD without esophagitis: Code(s): K21.9 - Gastro-esophageal reflux disease without esophagitis Category: Medical Plan: Dietary restrictions reinforced Continue Omeprazole 20 mg QD (11) Obesity (BMI 30-39.9): Code(s): E66.9 - Obesity, unspecified Category: Medical Plan: Reinforced diet/exercise as tolerated/lose weight Plan Follow up as scheduled in November 2025 when patient returns from his winter sojourn in [place] Medications: Refilled simvastatin 80 mg PO BEDTIME 90 days 90 tabs 3RF E78.00 - Pure hypercholesterolemia, unspecified simvastatin 80 mg PO BEDTIME 90 tabs 3RF 90 days E78.00 - Pure hypercholesterolemia, unspecified
--- OUTSIDE RECORDS SUMMARY | 2025-03-21 08:55 | XMS_ITS | Patient Health Record ---
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 Pump Installer Name Role Phone Nahum Corona Primary Care Provider Laureano rosario ANASTASIA EDMONDS Unavailable [phone] Becca Bentley Unavailable Unavailable Allergies Allergen (clinical drug ingredient) Drug/Non Drug Allergy documented on EMR Reaction Allergy Type Onset Date Status angiotensin-converti ng enzyme inhibitor (FN) MELIDA-I (uncoded) cough Allergy Active atorvastatin Atorvastatin Calcium itching Drug Allergy Active ezetimibe Ezetimibe Unknown Drug Allergy Active rosuvastatin Rosuvastatin Calcium itching/nausea Drug Allergy Active Results Component Value Reference Range Notes EKG (22634) (MidMark-MMIQECQ ) IH Reviewed date: Interpretation: Performing Lab: Notes/Report: Heart Rate 75 Systolic Blood Pressure 0 Diastolic Blood Pressure 0 NV Interval 232 QT Interval 378 QTc Interval 0 QRS Duration 115 PWave [place] 12 QrsWave [place] -15 TWave [place] -20 Mean Heart Rate 0 Diastolic Blood [...] Administered [id number] 37-0 1 PNEUMOCOCCAL 13 CONJ ([id number]) Unknown 04/21/2016 Pending PNEUMOCOCCAL 13 CONJ ([id number]) Unknown 04/21/2016 Administered FLU (Past vaccine of [...] Problem Status W/U Status Risk Notes Problem 231620123 Mixed hyperlipidemia (E78.2) Active confirmed Problem 83066007 Other chronic pa in (G89.29) Active confirmed Problem Angina co-occurrent and due to coronary arteriosclerosis (disorder) ([id number]) 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) Active confirmed Problem 103020007 Ischemic cardiomyopathy (I25.5) Active confirmed Problem 88826922 Chronic cough (R05.3) Active confirmed Problem 087766494 Other specified cough (R05.8) Active confirmed Problem 72523113 Essential hypertension (I10) Active confirmed Problem 254985531 Dyslipidemia (E78.5) Active confirmed Problem 442171057 Primary osteoarthritis of both knees (M17.0) Active confirmed Problem 958176807 Primary osteoarthritis of left knee (M17.12) Active confirmed Problem Aortic aneurysm (77718476) Aortic aneurysm (I71.9) Active confirmed Problem 42055111 Chronic cystitis (N30.20) Active confirmed Problem 771202584 Abnormal ECG (R94.31) Active confirmed Problem 523784538 Intermittent palpitations (R00.2) Active confirmed Problem 57377643 Muscle spasm (M62.838) Active confirmed Problem 50210352580392556 Pain of right sacroiliac joint (M53.3) Active confirmed Problem 47761592 Acute pain of le ft knee (M25.562) Active confirmed Problem 178411494 Ascending aortic aneurysm (I71.2) Active confirmed Problem History of coronary artery bypass grafting (091817656) 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) Active confirmed [facility] [place] Problem 291164198 Gastroesophageal reflux disease without esophagitis (K21.9) Active confirmed Problem 457521677 Somatic dysfunction of spine, lumbar (M99.03) Active confirmed Problem 184031129 Wellness examination (Z00.00) Active confirmed Problem 0981946962376 Coronary artery disease involving [place] coronary artery of [place] heart without angina pectoris (I25.10) Active confirmed Problem 03052094 Gout, unspecifie d cause, unspecified chronicity, unspecified site (M10.9) Active confirmed Problem 571599360 Degenerative tea r of left medial meniscus (M23.204) Active confirmed Problem 181203694 Chronic low back pain without sciatica, unspecified back pain laterality (M54.5) Active confirmed Problem 942151563 Pseudogout (M11.20) Active confirmed Problem 675089413 Right lower lobe pulmonary nodule (R91.1) Active confirmed Problem 190401096 HFrEF (heart failure with reduced ejection fraction) (I50.20) Active confirmed Problem 226541698 Aneurysm of ascending aorta without rupture (I71.21) Active confirmed Vital Signs Heart Rate 81 /min 10/24/2024 Respiratory Rate 17 /min 10/24/2024 Oximetry 94 10/24/2024 Blood pressure diastolic 70 mm Hg 04/16/2024 Height 69 in 10/24/2024 Blood pressure systolic 150 mm Hg 04/16/2024 Weight 216.4 lbs 10/24/2024 BMI 31.95 kg/m2 10/24/2024 Encounters Encounter Location Date Provider Diagnosis [id number] [place], [place] [id number] 08/28/2024 ANASTASIA EDMONDS [id number] [address] [place] [address] [id number] 10/11/2024 ANASTASIA EDMONDS [id number] [address] [place] [address] [id number] 10/31/2024 ANASTASIA EDMONDS [id number] [address] [place] [id number] 04/16/2024 ANASTASIA EDMONDS Bradycardia R00.1 ; Aneurysm of ascending aorta without rupture I71.21 ; Atherosclerotic heart disease of [place]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 I25.118 ; Intermittent palpitations R00.2 ; Essential hypertension I10 ; Mixed hyperlipidemia E78.2 ; Ischemic cardiomyopathy I25.5 ; History of coronary artery bypass graft x 3 Z95.1 and GERD without esophagitis K21.[id number] [place] [id number] 10/15/2024 ANASTASIA EDMONDS Essential hypertensi on I10 ; Bradycardia R00.1 ; Aneurysm of ascending aorta without rupture I71.21 ; Atherosclerotic heart disease of [place]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 I25.118 ; Intermittent palpitations R00.2 ; Mixed hyperlipidemia E78.2 ; Ischemic cardiomyopathy I25.5 ; History of coronary artery bypass graft x 3 Z95.1 and GERD without esophagitis K21.[id number] [place] [address] [id number] 10/24/2024 ANASTASIA EDMONDS Essential hypertensi on I10 ; Bradycardia R00.1 ; Aneurysm of ascending aorta without rupture I71.21 ; Atherosclerotic heart disease of [place] coronary artery with other forms of angina [...] asymptomatic. Monitor. 04/16/2024 Atherosclerotic heart disease of [place] coronary artery with other forms of angina [...] pressure control. 10/24/2024 Atherosclerotic heart disease of [place] coronary artery with other forms of angina [...] and simvastatin 10/15/2024 Atherosclerotic heart disease of [place] coronary artery with other forms of angina [...] graft x 3 (ICD-10 - Z95.1) 1998 [place] 04/16/2024 GERD without esophagitis (ICD-10 - K21.9) 10/24/2024 History of coronary artery bypass graft x 3 (ICD-10 - Z95.1) 1998 [place] 10/15/2024 History of coronary artery bypass graft x 3 (ICD-10 - Z95.1) 1998, [place], [place] 10/15/2024 GERD without esophagitis (ICD-10 - K21.9) 10/24/2024 GERD without esophagitis (ICD-10 - K21.9) 10/24/2024 Other thank you for including me in the care of your patient! Plan Of Treatment Pending Test Test Name Order Date BASIC METABOLIC PANEL (BMP)MEDICARE 8004 8 05/31/2022 EKG (99908) ([facility]Mark-MMIQECQ) IH 021 Echocardiogram 05/31/2022 Echocardiogram 11/03/2020 BASIC METABOLIC (THI) 03/11/2022 CXR 2 VIEWS (98610) IH 04/13/2021 CT- CTA CHEST AORTA (12259) (CNFL-CTACHE STAO) 04/13/2021 CT- CTA CHEST AORTA (78603) (CNFL-CTACHE STAO) 05/31/2022 Future Test Test Name Order Date LIPID PANEL (THI) 11/24/2020 LIPID PANEL (THI) 05/10/2021 NM- NUCLEAR TREADMILL STRESS TEST (42419, A9500, 68654)(ScImage-SONMTMSTRES) 09/21/2023 CT- CTA CHEST W/ CONTRAST (23217)(LARG-C TCTACHEST) 11/16/2023 COMPREHENSIVE METABOLIC PANEL(Q-69211) 1 URINALYSIS, COMPLETE W/REFLEX TO CULTURE (Q-3020) 04/16/2024 PSA (FREE AND TOTAL) (Q-44404) 4 TSH W/REFLEX TO FT4 (Q-94602) 04/16/2024 HEMOGLOBIN A1c (Q-496) 04/16/2024 CBC (INCLUDES DIFF/PLT)(Q-6399) 04/16/20 24 LIPID PANEL, STANDARD (Q-7600) 4 Next Appt Details Provider Name:ANASTASIA EDMONDS , 05/06/2025 02:30:00 PM, [address], [address], [place], [place], [id number], Insurance Providers Payer Name Payer Address Payer Phone Subscriber Number Group Number Insured Name Patient Relationship to Insured Coverage Start Date Coverage End Date MEDICARE [place] PART B [address] [facility] FANI GARCIA [id number] [phone] [id number] Estevan Abdirashid Self - patient is the insured 8 8 [facility] PREFERRED [address] [place], [place] [phone] [id number] Abdirashid Barreto Self - patient is the insured 9 9 Medical (General) History Medical History History ICD Code CABGS 1998, [place] st[place] and angina Ascending [...]
--- OUTSIDE RECORDS SUMMARY | 2025-03-21 08:55 | XMS_ITS | Patient Health Record ---
Author Organization [facility] Address [address] [place] [address] Care Team Providers Care Education Paraprofessional Name Role Phone Morteza Viera M.D. 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-inflammato bernarda (NSAID) (Z79.1) Active confirmed Plan Of Treatment Future Test Test Name Order Date COLONOSCOPY 12/05/2018 Insurance Providers Payer Name Payer Address Payer Phone Subscriber Number Group Number Insured Name Patient Relationship to Insured Coverage Start Date Coverage End Date MEDICARE OF [place] [address] [place] [address] [id number] RAQUEL SANFORD Self - patient is the insured [facility](N o referral needed) [address] [place] [address] [id number] RAQUEL SANFORD Self - patient is the insured Medical (General) History Medical History History ICD Code coronary artery disease OR 1998 mini stroke hypertension elevated cholesterol pseudogout Surgical History Surgery Date(Month/Year) back surgery 1988,2004 cataract-lens implants both eyes 2016 right knee arthroscopy 2015 CABG x3 1999
--- OUTSIDE RECORDS SUMMARY | 2025-03-21 08:56 | XMS_ITS | Patient Health Record ---
Author Organization [facility] Melissa Velez Address [address] [place], [place] [id number] Care Team Providers Care Certified Ophthalmic Medical Technician Name Role Phone Vega, Francisco Primary Care Provider Lito Marinelli Unavailable [phone] Reason For Referral No Information Medications Medication [...] Risk Notes Problem Urinary tract infectious disease (69107209) Urinary tract infection, site not specified (N39.0) Active confirmed Plan Of Treatment Pending Test Test Name Order Date CYSTOSCOPY 10/20/2016 BLADDER SCAN 09/05/2016 Future Test Test Name Order Date CT Scan : Stone protocol 09/08/2016 CYSTOSCOPY 09/12/2016 Insurance Providers Payer Name Payer Address Payer Phone Subscriber Number Group Number Insured Name Patient Relationship to Insured Coverage Start Date Coverage End Date [facility] Service Options Part B claims [address] [place] [id number] [phone] [id number] RAQUEL SANFORD Self - patient is the insured [facility] [employer] Plan [address] [place] [address] [phone] [id number] RAQUEL SANFORD Self - patient is the insured Medical (General) History Medical History History ICD Code Heart attack Hypertension Surgical History Surgery Date(Month/Year) Tonsils 1953 Triple bypass 1998 Hernia 2009 Right eye-cataract 10/2016
[2025-03-21 09:26] VITALS: BP 110/78
== END 2025-03-21 09:25 | disposition home or self-care (01) ==
LOC: HO.HMCH 08:34
PROVIDERS: PCP Internal Medicine; Visit Provider Internal Medicine
DX: Z00.00 Encounter for general adult medical examination without abnormal findings (principal); J44.9 Chronic obstructive pulmonary disease, unspecified; E66.9 Obesity, unspecified; Z68.32 Body mass index [BMI] 32.0-32.9, adult; I10 Essential (primary) hypertension; I71.21 Aneurysm of the ascending aorta, without rupture; E78.00 Pure hypercholesterolemia, unspecified; I25.10 Atherosclerotic heart disease of native coronary artery without angina pectoris; M11.20 Other chondrocalcinosis, unspecified site; M17.0 Bilateral primary osteoarthritis of knee; M51.369 Other intervertebral disc degeneration, lumbar region without mention of lumbar back pain or lower extremity pain; K21.9 Gastro-esophageal reflux disease without esophagitis

== ENCOUNTER → 2025-03-21 08:33 | Outpatient (BNVA) | payer MEDICARE, SELFPAY | PROVIDERS: PCP Internal Medicine; Visit Provider Internal Medicine | DX: Z00.00 Encounter for general adult medical examination without abnormal findings (principal); I10 Essential (primary) hypertension; I71.21 Aneurysm of the ascending aorta, without rupture; E78.00 Pure hypercholesterolemia, unspecified; I25.10 Atherosclerotic heart disease of native coronary artery without angina pectoris; J44.9 Chronic obstructive pulmonary disease, unspecified; M11.20 Other chondrocalcinosis, unspecified site; M17.0 Bilateral primary osteoarthritis of knee; M51.369 Other intervertebral disc degeneration, lumbar region without mention of lumbar back pain or lower extremity pain; K21.9 Gastro-esophageal reflux disease without esophagitis; E66.9 Obesity, unspecified; Z68.32 Body mass index [BMI] 32.0-32.9, adult | CPT/HCPCS: 96127; 99397 ==